=== PATIENT | male | born 1925 | race Caucasian/White ===

== ENCOUNTER → 2016-03-08 | Outpatient (CLI) | payer MEDICARE ==
[~2016-03-08] MED LIST: ASPI32ECTA PO; CALC600T57 PO; CENT1TAB PO; IBUP200C PO; LEVO200T4 PO; METO25TA74 PO; OSTETAB2 PO; PRAV80TA PO; PRESCAP6 PO
[2016-03-08 12:21] LABS: INR 1.01
[2016-03-08 12:22] LABS: MEAN CORPUSCULAR VOLUME 96.7 fl (80.0-96.0); WHITE BLOOD COUNT 8.1 K/mm3 (4.0-10.0)
--- NOTE | 2016-03-08 12:26 | REP ---
Clinical: Preoperative assessment . Comparison: 09/20/2014. Technique: PA and lateral. Findings: The mediastinum and cardiac silhouette demonstrate chronic changes and evidence for hiatal hernia. The lung agrawal demonstrate chronic changes without acute consolidation, effusion, or pneumothorax. The skeletal structures are intact and normal. Impression: 1. No acute cardiopulmonary process. Signed by David Mai MD 03/08/2016 12:17 P
[2016-03-08 12:47] LABS: ALBUMIN 3.7 GM/DL (3.2-5.2); ALBUMIN/GLOBULIN RATIO 1.06 (1.00-1.93); BILIRUBIN,TOTAL 0.5 MG/DL (0.2-1.0); CALCIUM LEVEL 8.7 MG/DL (8.8-10.2); CREATININE FOR GFR 1.36 MG/DL (0.70-1.30); GLOMERULAR FILTRATION RATE 52.6 (>35); POTASSIUM SERUM 4.5 MEQ/L (3.5-5.1); TOTAL PROTEIN 7.2 GM/DL (6.4-8.2)
--- NOTE | 2016-03-08 17:25 | ECGEPIP ---
Stationary ECG Study [facility] Test Date: 2016-03-08 Pat Name: ADRIANA CHANDLER Department: Room: - Gender: M [employer] Compliance Specialist: : [id number] Requested By: Jese Jalloh Order Number: [id number] Reading MD: Adnrew Valdez Measurements Intervals Wright Rate: 47 P: 50 OR: 210 QRS: 21 QRSD: 97 T: 68 QT: 464 QTc: 411 Interpretive Statements SINUS BRADYCARDIA WITH FIRST DEGREE AV BLOCK Inferior Q waves of uncertain significance Electronically Signed On 03-08-2016 17:24:34 EST by Andrew Valdez
== END ==
LOC: M ADMPAT 09:19 → EDSTATUS 09:30
PROVIDERS: ATTEND Orthopaedic Surgery
DX: M17.11 Unilateral primary osteoarthritis, right knee (principal); Z79.01 Long term (current) use of anticoagulants

== ENCOUNTER 2016-03-22 07:30 | Inpatient (IN) | payer MEDICARE ==
[2016-03-08 11:23] VITALS: BP 134/72
--- NOTE | 2016-03-20 16:06 | HPE ---
DATE OF ADMISSION: 03/22/2016 CHIEF COMPLAINT: Right knee pain. HISTORY OF PRESENT ILLNESS: This is a very pleasant 89-year-old male with progressively worsening right knee pain and stiffness. He has failed to improve with conservative treatment. He has elected for surgery for his continued symptoms. He has pain with weightbearing activities and his activities of daily living. X-rays of his knee are notable for advanced osteoarthritis of the right knee joint. He has consented for a right total knee arthroplasty by Dr. Jese Jalloh. Medical optimization was performed by Dr. Morris. ALLERGIES: No known drug allergies. CURRENT MEDICATIONS: - Centrum Silver once a day - Caltrate 600/1500 once a day - baby aspirin once a day - ibuprofen 200 mg once a day - levothyroxine 88 mcg a day - AREDS eye capsules PAST MEDICAL HISTORY: He has a history of hypothyroidism. PAST SURGICAL HISTORY: Includes a quadruple bypass in 1997. SOCIAL HISTORY: This gentleman is semi-retired. He works for the town of [place] 12 hours a week. He quit smoking in 1984. He does not drink alcohol. FAMILY HISTORY: Noncontributory. REVIEW OF SYSTEMS: This patient denies chest pain, heart palpitations, cough, wheezing, difficulty breathing and shortness of breath. He denies abdominal pain, nausea, vomiting, diarrhea or constipation. He denies recent upper respiratory infection or urinary tract infection symptoms. He does complain of persistent pain in the right knee and pain with weightbearing activities in his right knee. PHYSICAL EXAMINATION: GENERAL: He is a well-nourished, well-developed, in no acute distress, adult male. He ambulates with a moderate limp favoring the right lower extremity. He uses a single-leg cane. VITAL SIGNS: Blood pressure 149/88, pulse of 16, respirations of 12. NECK: Supple without adenopathy or jugular venous distension. There were no carotid bruits appreciated upon auscultation. LUNGS: Clear to auscultation without rales or wheeze. HEART: Regular rate and rhythm. ABDOMEN: Bowel sounds were present. EXTREMITIES: Examination of the knee revealed intact skin. He had decreased range of motion secondary to pain and stiffness. The limb is neurovascularly intact. LABORATORY DATA: Chest x-ray showed no acute cardiopulmonary disease processes. EKG showed sinus bradycardia with first-degree AV block at 47 beats per minute. Prothrombin time was 13.4, INR 1.01, glucose 70, BUN 22, creatinine 1.36 for a GFR of 52.6, sodium 141, potassium 4.5. CBC showed a red count of 4.08, hemoglobin of 12.6, hematocrit of 39.5, and an MCV of 96.7. Sedimentation rate was 18. UA showed 1+ protein, 3+ leukocyte esterase, 15 white blood cells with a specific gravity of 1.020. Urine culture showed no growth and nasal and sinus cultures showed normal tammi. IMPRESSION: Symptomatic osteoarthritis of the right knee. PLAN: Consented for a right total knee arthroplasty by Dr. Jese Jalloh.
[~2016-03-22] VITALS: Ht 180.3 cm; Wt 92.5 kg
[2016-03-22] VITALS (7 sets, daily range): BP systolic 127–156; BP diastolic 64–90
[2016-03-22] MEDS ORDERED: LR 1,000 ML IV SCH ×3 (09:15→14:30)
[2016-03-22] MEDS ORDERED: COUM10TA PO (09:36)
[2016-03-22] MEDS ORDERED: ceFAZolin 1GM INJ (J0690) As Ordered ONE (09:59)
[2016-03-22] MEDS ORDERED: TRANEXAMIC ACID 100 MG/ML 10ML VIAL As Ordered ONE (09:59)
[2016-03-22] MEDS ORDERED: EPINEPHrine INJ 1 MG/ML 1ML VIAL/AMP As Ordered ONE (10:00)
[2016-03-22] MEDS ORDERED: BUPIVACAINE HCL 0.5% 10 ML VIAL As Ordered ONE (10:02)
[2016-03-22] MEDS ORDERED: fentaNYL 100 MCG/2 ML INJECTION (J3010) As Ordered ONE ×2 (10:02→10:05)
[2016-03-22] MEDS ORDERED: BUPIVACAINE HCL 0.25% 30 ML VIAL As Ordered ONE (10:02)
[2016-03-22] MEDS ORDERED: MIDAZOLAM INJ 2 MG/2 ML VIAL (J2250) As Ordered ONE (10:05)
[2016-03-22] MEDS ORDERED: fentaNYL 100 MCG/2 ML INJECTION (J3010) IV PRN ×2 (10:45→14:30)
[2016-03-22] MEDS ORDERED: MIDAZOLAM INJ 2 MG/2 ML VIAL (J2250) IV PRN (10:45)
[2016-03-22] MEDS ORDERED: fentaNYL 100 MCG/2 ML INJECTION (J3010) IV ONE (11:15)
[2016-03-22] MEDS ORDERED: MIDAZOLAM INJ 2 MG/2 ML VIAL (J2250) IV ONE (11:15)
[2016-03-22] MEDS ORDERED: EPINEPHrine INJ 1 MG/ML 1ML VIAL/AMP XX ONE (12:29)
[2016-03-22] MEDS ORDERED: BUPIVACAINE HCL 0.25% 30 ML VIAL XX ONE (12:29)
[2016-03-22] MEDS ORDERED: BUPIVACAINE HCL 0.5% 10 ML VIAL XX ONE ×2 (12:29→14:45)
[2016-03-22] MEDS ORDERED: fentaNYL 100 MCG/2 ML INJECTION (J3010) XX ONE (12:29)
[2016-03-22] MEDS ORDERED: ceFAZolin 1GM INJ (J0690) IR ONE (12:29)
[2016-03-22] MEDS ORDERED: TRANEXAMIC ACID 100 MG/ML 10ML VIAL XX ONE (12:29)
[2016-03-22] MEDS ORDERED: ROPIvacaine 0.5% 30 ML INJECTION (J2795) ONE (12:36)
[2016-03-22] MEDS ORDERED: dexameTHASONE 10 MG/1 ML VIAL PRES.FREE (J1100) ONE (12:36)
[2016-03-22] MEDS ORDERED: EPINEPHrine INJ 1 MG/ML 1ML VIAL/AMP ONE (12:36)
[2016-03-22] MEDS ORDERED: ONDANSETRON 4MG/2ML VIAL (J2405) As Ordered ONE (13:28)
[2016-03-22] MEDS ORDERED: PHENYLephrine HCL 500 MCG/5 ML (100MCG/ML) SYRINGE (J2370) As Ordered ONE (13:28)
[2016-03-22] MEDS ORDERED: LIDOCAINE 2% INJ 100 MG/5 ML SDV (FOR ANES.) As Ordered ONE (13:28)
[2016-03-22] MEDS ORDERED: PROPOFOL 200 MG/20 ML VIAL As Ordered ONE (13:28)
[2016-03-22] MEDS ORDERED: ePHEDrine SULFATE 25 MG/5 ML(5MG/ML) SYRINGE As Ordered ONE (13:28)
[2016-03-22] MEDS ORDERED: MORPHINE PCA 1MG/ML 100ML CADD As Ordered ONE (13:53)
[2016-03-22] MEDS ORDERED: PATIENT IS CURRENTLY ON AN ON-Q PAIN BUSTER PAIN RELIEF SYSTEM XX SCH (14:30)
[2016-03-22] MEDS ORDERED: ONDANSETRON 4MG/2ML VIAL (J2405) IV PRN ×2 (14:30→15:00)
[2016-03-22] MEDS ORDERED: FLEET ENEMA PR PRN (14:45)
[2016-03-22] MEDS ORDERED: ACETAMINOPHEN TAB 650MG DOSE (2X325MG) PO PRN (14:45)
[2016-03-22] MEDS ORDERED: NALOXONE INJ 0.4 MG/1 ML VIAL (J2310) IV PRN (15:00)
[2016-03-22] MEDS ORDERED: diphenhydrAMINE INJ 50MG/ML VIAL (J1200) IV PRN (15:00)
[2016-03-22] MEDS ORDERED: EPIDURAL/PCA KEYS XX PRN (15:00)
[2016-03-22] MEDS ORDERED: MORPHINE PCA 1MG/ML 100ML CADD IV PRN (15:00)
[2016-03-22] MEDS ORDERED: NALBUPHINE HCL 10 MG/ML AMP (J2300) IV PRN (15:00)
[2016-03-22] MEDS: MULTIVITAMINS/MINERALS THERAP 1 TAB PO SCH (15:49)
[2016-03-22] MEDS: D5W/0.45% SODIUM CHLORIDE 1,000 ML IV SCH (15:49)
[2016-03-22] MEDS ORDERED: WARFARIN SOD 5 MG TAB PO SCH (17:00)
[2016-03-22] MEDS: PRAVASTATIN 20 MG TAB PO SCH (20:25)
--- NOTE | 2016-03-22 23:16 | RO ---
DATE OF PROCEDURE: 03/22/2016 PREOPERATIVE DIAGNOSIS: Right severe osteoarthritis of the knee. POSTOPERATIVE DIAGNOSIS: Right severe osteoarthritis of the knee. OPERATION PERFORMED: Right total knee replacement. SURGEON: Jese Jalloh MD CALENDER MACHINE OPERATOR HELPER: ALYSSA Vasques HISTORY: An 89-year-old gentleman with at least 20 degrees of severe varus subluxation of the knee, advanced erosion of the tibia. The patient presents for elective total knee replacement. FINDINGS AT SURGERY: A #5 femur, a #4 tibia, 12.5 spacer, 38 mm button. TOURNIQUET TIME: 62 minutes. COMPLICATIONS: No intraoperative complications noted. Mr. Sue assisted by retracting vital structures and manipulating the leg in order to expedite the procedure. DESCRIPTION OF PROCEDURE: After a spinal anesthetic was installed, the Barajas catheter placed, IV antibiotics were administered. The right leg prepped and draped in usual fashion. A tourniquet inflated to 300 mmHg. A straight anterior incision made. A median parapatellar arthrotomy was fashioned. Intermedullary canal opened and a 5 degrees valgus 10 mm cut made off the femur. This was done by Vikram under my supervision. I made the rest of the femoral sizing cuts. Then the tibia was exposed. We had to cut 12 mm off the good side in order to get to a stable border. The osteophytes were removed. Posterior osteophytes removed. The medial collateral ligament was intact. The medial meniscus, lateral meniscus were excised. The anterior and posterior cruciate were excised. The spacer appeared to be a 12.5. Following this, the notch was cut, the femur fit well. The tibia was applied and rotation was checked. A #5 tray tented to overhang a bit too much. The #4 had a better bony support, so that was chosen. Rotation was checked and the preparation was finalized. No lateral release was required for the patella. Once all trial components were removed, Mr. Sue was sent to the back table to mix methacrylate under vacuum while I thoroughly irrigated the bone and dried it in preparation for cementing. Following this the he returned to supply exposure. Then the permanent components were malleted into place. Excess cement was removed and the knee placed in full extension while the patella was cemented. The knee was then thoroughly irrigated. A PainBuster catheter was inserted. The TXA was instilled into the wound for postoperative analgesia and hemostasis. The median parapatellar arthrotomy was closed with heavy PDS suture. The tenosynovium closed with buried #2-0 PDS luanne for skin. Tourniquet deflated at 62 minutes. A dry dressing was applied. The patient transferred to recovery room breathing spontaneously having tolerated the procedure well.
[2016-03-23] MEDS: D5W/0.45% SODIUM CHLORIDE 1,000 ML IV SCH (01:00)
[2016-03-23 02:00] VITALS: BP 124/91
[2016-03-23 06:00] VITALS: BP 122/77
[2016-03-23] MEDS: LEVOTHYROXINE 0.1 MG TAB (100 MCG) PO SCH (06:12)
[2016-03-23] MEDS: CALCIUM CARBONATE 500 MG CHEW U/D PO PRN ×2 (06:12→13:23)
[2016-03-23] MEDS ORDERED: ONDANSETRON 4 MG TAB (S0181) PO PRN (06:30)
[2016-03-23 06:53] LABS: MEAN CORPUSCULAR HEMOGLOBIN 31.7 pg (27.0-33.0); MEAN CORPUSCULAR HGB CONC 32.1 g/dl (32.0-36.5); MEAN CORPUSCULAR VOLUME 98.5 fl (80.0-96.0); RED CELL DISTRIBUTION WIDTH 13.6 % (11.5-14.5); WHITE BLOOD COUNT 12.4 K/mm3 (4.0-10.0)
[2016-03-23 07:07] LABS: INR 1.15
--- NOTE | 2016-03-23 08:33 | IPNPDOC ---
Assessment/Plan Date Seen The patient was seen on 03/23/16. Problems Problems: (1) Fever Status: Acute Problem Text: 03/23 WBC 12.4, temp to 100.6, NBNB vomit x 1 this AM, no obvious source, t/f-defer workup for now (2) Status post total right knee replacement Status: Acute Problem Specific Plan: Monitor Clinically Problem Text: Pain controlled, Mgmt per ortho. PT/OT. Enc IS. Please call [facility] is needed. (3) Hypertension Status: Chronic Problem Specific Plan: Monitor Clinically (4) Hypothyroidism Status: Chronic Problem Specific Plan: Monitor Clinically Plan / VTE VTE Prophylaxis Ordered?: Yes Subjective Review of Systems CC/HPI Pt this morning, reports pain controlled. denies concerns General: Denies: Fatigue Constitutional: Denies: Chills, Fever Pulmonary: Denies: Cough, Dyspnea Cardiovascular: Denies: Chest Pain, Palpitations Gastrointestinal: Denies: Diarrhea, Nausea, Vomiting Psych: Reports: Mood Normal Objective Physical Examination General Exam: Positive: Alert, No Acute Distress ENT Exam: Positive: Mucous membr. moist/pink Chest Exam: Positive: Clear to auscultation, Normal air movement Heart Exam: Positive: Normal S1, Normal S2, Rate Normal Abdomen Exam: Positive: Normal bowel sounds, Soft, Negative: Tenderness Extremity Exam: Negative: Edema Vital Signs/I&O Vital Signs Date Time Temp Pulse Resp B/P Pulse Ox O2 Delivery O2 Flow Rate FiO2 03/23/16 06:00 99.9 72 18 122/77 97 Nasal Cannula 2.0 I&O- Last 24 Hours up to 6 AM 03/23/16 06:00 Intake Total 3437 ml Output Total 1375 ml Balance 2062 ml Laboratory Data Labs 24H Laboratory Tests 2 03/23/16 06:39: Prothromb Time International Ratio 1.15, Prothrombin Time 14.8H CBC/BMP Laboratory Tests 03/23/16 06:39 Red Blood Count 3.61 L, Mean Corpuscular Volume 98.5 H, Mean Corpuscular Hemoglobin 31.7, Mean Corpuscular Hemoglobin Concent 32.1, Red Cell Distribution Width 13.6 SHLOMO OLIVO PA-C Mar 23, 2016 08:33 Romeo Huynh M.D. Mar 23, 2016 16:53
[2016-03-23] MEDS ORDERED: ONDANSETRON 4MG/2ML VIAL (J2405) IV PRN (08:45)
--- NOTE | 2016-03-23 08:48 | CR ---
DATE OF CONSULTATION: 03/22/2016 SUBJECTIVE: The patient tells me that he is feeling well. He denies any pain or complaints at this time. He denies chest pain, shortness of breath, fevers, chills, nausea, vomiting, or diarrhea. OBJECTIVE: VITAL SIGNS: Blood pressure 113/59. Pulse 54. Respiratory rate 12. Oxygen saturation 97% on room air. GENERAL: He is a very pleasant, elderly, man joking around with the nurses. He does not appear to be in any acute distress. HEENT: Cranial nerves II-XII are grossly intact. He has moist mucous membranes. No elevation of central venous pressure. CARDIOVASCULAR: S1, S1, with a pansystolic murmur. RESPIRATORY EXAM: Clear. ABDOMINAL EXAM: Benign. EXTREMITIES: Right knee is bandaged, is wrapped. He has a drain in place which is not draining anything at this time. There is no clubbing, cyanosis or edema. Good pulses distally bilaterally. LABORATORY STUDIES: None recently. IMAGING: No new imaging. ASSESSMENT AND PLAN: This is an 89-year-old man status post right total knee replacement without complications postoperative day 0. PROBLEMS: 1. Right total knee replacement postoperative day 0. Management, physical therapy and pain control. Surgical management as per orthopedic surgery, Dr. Jalloh. 2. Coronary artery disease. The patient will be continued on his beta rosie with holding parameters. His aspirin is continued. He is also continued on his statin. 3. Hypothyroidism. The patient will be continued on his levothyroxine at his home dose. 4. Macular degeneration. The patient is okay to continue his home AREDS at his home dose. 5. Dyslipidemia. As outlined above, the patient is continued on his statin. DISPOSITION: Will continue following. Thank you for this consult. We will continue to follow along with this patient with you while he remains in the hospital. The patient will be signed out to Dr. Huynh of [facility] who will continue following the patient.
[2016-03-23] MEDS: METOPROLOL SUCC *XL* 25MG TAB (TopROL *XL*) PO SCH (09:00)
[2016-03-23] MEDS ORDERED: D5W/0.45% SODIUM CHLORIDE 1,000 ML IV SCH (09:00)
[2016-03-23] MEDS ORDERED: ONDANSETRON 4MG/2ML VIAL (J2405) IV SCH (09:00)
[2016-03-23] MEDS: PRESERVISION PO SCH ×2 (09:28→20:55)
[2016-03-23] MEDS: SENOKOT S TAB PO SCH ×2 (09:29→20:55)
[2016-03-23] MEDS: MULTIVITAMINS/MINERALS THERAP 1 TAB PO SCH (09:29)
[2016-03-23] MEDS: MOM 30ML SUSPENSION UDC PO SCH (09:29)
[2016-03-23] MEDS: PERCOCET 5MG/325MG TAB PO PRN ×3 (09:31→20:56)
[2016-03-23] MEDS: MIRALAX *UNIT DOSE* 17GM PACKET PO SCH (09:32)
[2016-03-23 10:00] VITALS: BP 122/69
--- NOTE | 2016-03-23 11:07 | REP ---
Right knee two views: There is a total hip arthroplasty. The components are tightly applied and in satisfactory positions alignment. Skin luanne are incidentally noted. Signed by Rachid Corona MD 03/23/2016 10:59 A
[2016-03-23 14:00] VITALS: BP 119/64
[2016-03-23] MEDS ORDERED: WARFARIN SOD 5 MG TAB PO ONE (17:00)
--- NOTE | 2016-03-23 19:02 | REP ---
PORTABLE CHEST, ONE VIEW: HISTORY: Fever. COMPARISON: 03/08/2016 An increase in interstitial markings is present in the lungs consistent with chronic interstitial fibrosis. Linear density is present in the left lower lobe consistent with scar. The heart is normal in size. The pulmonary vasculature is normal in appearance. A hiatal hernia is present. IMPRESSION: 1. Chronic interstitial fibrosis. 2. Left lower lobe scar. Signed by Al Shukla MD 03/23/2016 07:05 P
[2016-03-23] MEDS: PRAVASTATIN 20 MG TAB PO SCH (20:55)
[2016-03-23 22:00] VITALS: BP 119/82
[2016-03-24 06:00] VITALS: BP 130/71
[2016-03-24] MEDS: LEVOTHYROXINE 0.1 MG TAB (100 MCG) PO SCH (06:04)
[2016-03-24] MEDS: PERCOCET 5MG/325MG TAB PO PRN ×3 (06:05→20:56)
[2016-03-24 07:05] LABS: ALBUMIN 2.9 GM/DL (3.2-5.2); ALBUMIN/GLOBULIN RATIO 0.88 (1.00-1.93); ALKALINE PHOSPHATASE 103 U/L (45-117); ALT/SGPT 32 U/L (12-78); ANION GAP 7 MEQ/L (8-16); AST/SGOT 33 U/L (15-37); BILIRUBIN,TOTAL 0.9 MG/DL (0.2-1.0); BLOOD UREA NITROGEN 24 MG/DL (7-18); CALCIUM LEVEL 8.4 MG/DL (8.8-10.2); CARBON DIOXIDE LEVEL 28 MEQ/L (21-32); CHLORIDE LEVEL 100 MEQ/L (98-107); CREATININE FOR GFR 1.06 MG/DL (0.70-1.30); GLOMERULAR FILTRATION RATE > 60.0 (>35); GLUCOSE, FASTING 114 MG/DL (83-110); POTASSIUM SERUM 4.5 MEQ/L (3.5-5.1); SODIUM LEVEL 135 MEQ/L (136-145); TOTAL PROTEIN 6.2 GM/DL (6.4-8.2)
[2016-03-24 07:08] LABS: INR 1.79
[2016-03-24 07:13] LABS: BASO # 0.3 K/mm3 (0.0-0.2); BASO % 2.1 % (0.0-1.0); EOS # 0.2 K/mm3 (0.0-0.50); EOS % 1.7 % (0.0-3.0); LARGE UNSTAINED CELL # 0.2 K/mm3 (0.0-0.4); LYMPH % 5.6 % (24.0-44.0); MEAN CORPUSCULAR HEMOGLOBIN 30.4 pg (27.0-33.0); MEAN CORPUSCULAR HGB CONC 31.9 g/dl (32.0-36.5); MEAN CORPUSCULAR VOLUME 95.4 fl (80.0-96.0); MONO # 0.7 K/mm3 (0.0-0.8); NEUTROPHILS # 12.2 K/mm3 (1.8-7.7); NEUTROPHILS % 84.6 % (36.0-66.0); PLATELET COUNT, AUTOMATED 231 k/mm3 (150-450); RED CELL DISTRIBUTION WIDTH 13.6 % (11.5-14.5); WHITE BLOOD COUNT 14.4 K/mm3 (4.0-10.0)
[2016-03-24] MEDS: METOPROLOL SUCC *XL* 25MG TAB (TopROL *XL*) PO SCH (09:00)
[2016-03-24] MEDS: MULTIVITAMINS/MINERALS THERAP 1 TAB PO SCH (09:53)
[2016-03-24] MEDS: MIRALAX *UNIT DOSE* 17GM PACKET PO SCH (09:53)
[2016-03-24] MEDS: MOM 30ML SUSPENSION UDC PO SCH (09:53)
[2016-03-24] MEDS: SENOKOT S TAB PO SCH ×2 (09:53→20:56)
[2016-03-24] MEDS: PRESERVISION PO SCH ×2 (09:54→20:56)
[2016-03-24 11:26] VITALS: BP 114/69
[2016-03-24] MEDS ORDERED: WARFARIN SOD 5 MG TAB PO ONE (17:00)
[2016-03-24] MEDS: PRAVASTATIN 20 MG TAB PO SCH (20:56)
[2016-03-24 22:00] VITALS: BP 109/69
[2016-03-25] MEDS: LEVOTHYROXINE 0.1 MG TAB (100 MCG) PO SCH (05:58)
[2016-03-25] MEDS: PERCOCET 5MG/325MG TAB PO PRN ×2 (05:59→22:13)
[2016-03-25 06:00] VITALS: BP 125/74
[2016-03-25 06:19] LABS: INR 1.82
[2016-03-25] MEDS ORDERED: MAGNESIUM CITRATE 300 ML BTL PO ONE (06:45)
[2016-03-25] MEDS: SENOKOT S TAB PO SCH ×2 (08:48→20:16)
[2016-03-25] MEDS: MULTIVITAMINS/MINERALS THERAP 1 TAB PO SCH (08:48)
[2016-03-25] MEDS: PRESERVISION PO SCH ×2 (08:48→20:16)
[2016-03-25] MEDS: MOM 30ML SUSPENSION UDC PO SCH (08:48)
[2016-03-25] MEDS: MIRALAX *UNIT DOSE* 17GM PACKET PO SCH (08:48)
[2016-03-25] MEDS: METOPROLOL SUCC *XL* 25MG TAB (TopROL *XL*) PO SCH (08:49)
[2016-03-25 14:00] VITALS: BP 119/74
[2016-03-25] MEDS ORDERED: WARFARIN SOD 4 MG TAB PO SCH (17:00)
[2016-03-25] MEDS: PRAVASTATIN 20 MG TAB PO SCH (20:16)
[2016-03-25 22:00] VITALS: BP 167/83
[2016-03-26] MEDS: LEVOTHYROXINE 0.1 MG TAB (100 MCG) PO SCH (05:47)
[2016-03-26] MEDS: PERCOCET 5MG/325MG TAB PO PRN ×3 (05:52→21:26)
[2016-03-26 06:00] VITALS: BP 131/76
[2016-03-26 06:17] LABS: INR 2.08
[2016-03-26] MEDS: MOM 30ML SUSPENSION UDC PO SCH (09:20)
[2016-03-26] MEDS: MIRALAX *UNIT DOSE* 17GM PACKET PO SCH (09:20)
[2016-03-26] MEDS: PRESERVISION PO SCH ×2 (09:20→20:24)
[2016-03-26] MEDS: SENOKOT S TAB PO SCH ×2 (09:21→20:24)
[2016-03-26] MEDS: METOPROLOL SUCC *XL* 25MG TAB (TopROL *XL*) PO SCH (09:21)
[2016-03-26] MEDS: MULTIVITAMINS/MINERALS THERAP 1 TAB PO SCH (09:23)
[2016-03-26 14:00] VITALS: BP 127/77
[2016-03-26] MEDS ORDERED: WARFARIN SOD 1 MG TAB PO ONE (17:00)
[2016-03-26] MEDS: PRAVASTATIN 20 MG TAB PO SCH (20:24)
[2016-03-27] MEDS: LEVOTHYROXINE 0.1 MG TAB (100 MCG) PO SCH (05:39)
[2016-03-27 06:00] VITALS: BP 141/73
[2016-03-27 06:37] LABS: INR 2.35
[2016-03-27] MEDS ORDERED: PERC5TAB6 PO (06:51)
[2016-03-27] MEDS ORDERED: MAPA325T2 PO (07:12)
[2016-03-27] MEDS ORDERED: PERCOCET PO (07:12)
[2016-03-27] MEDS ORDERED: PEG1POW PO (07:12)
[2016-03-27] MEDS ORDERED: CALC500C16 PO (07:12)
[2016-03-27] MEDS ORDERED: FLEEENE4 PR (07:12)
[2016-03-27] MEDS ORDERED: Non-Formulary Medication XX (07:12)
[2016-03-27] MEDS ORDERED: SENN1TAB2 PO (07:12)
[2016-03-27] MEDS ORDERED: MILKSUS PO (07:12)
[2016-03-27] MEDS ORDERED: Patient Own Medication PO (07:12)
[2016-03-27] MEDS: MIRALAX *UNIT DOSE* 17GM PACKET PO SCH (08:45)
[2016-03-27] MEDS: MOM 30ML SUSPENSION UDC PO SCH (08:45)
[2016-03-27 08:46] VITALS: BP 141/73
[2016-03-27] MEDS: SENOKOT S TAB PO SCH (08:46)
[2016-03-27] MEDS: MULTIVITAMINS/MINERALS THERAP 1 TAB PO SCH (08:46)
[2016-03-27] MEDS: METOPROLOL SUCC *XL* 25MG TAB (TopROL *XL*) PO SCH (08:46)
[2016-03-27] MEDS: PRESERVISION PO SCH (08:46)
[2016-03-27] MEDS: PERCOCET 5MG/325MG TAB PO PRN (08:47)
[2016-03-27 10:11] LABS: MEAN CORPUSCULAR HEMOGLOBIN 31.2 pg (27.0-33.0); MEAN CORPUSCULAR HGB CONC 32.5 g/dl (32.0-36.5); MEAN CORPUSCULAR VOLUME 96.1 fl (80.0-96.0); RED CELL DISTRIBUTION WIDTH 13.5 % (11.5-14.5); WHITE BLOOD COUNT 11.5 K/mm3 (4.0-10.0)
[2016-03-28] MEDS ORDERED: OXYC1TAB23 PO (15:58)
[2016-03-28] MEDS ORDERED: MIRA33504 PO (15:58)
[2016-03-28] MEDS ORDERED: ENEM1ENE4 PR (15:58)
[2016-03-28] MEDS ORDERED: BISA10SU4 PR (15:58)
[2016-03-28] MEDS ORDERED: VITMTA PO (15:58)
[2016-03-28] MEDS ORDERED: CALCCHW3 PO (15:58)
[2016-03-28] MEDS ORDERED: WARF4TAB52 PO (15:58)
[2016-03-28] MEDS ORDERED: TYLE500T78 PO (15:58)
[2016-03-28] MEDS ORDERED: MILKSUS PO (15:58)
[2016-03-28] MEDS ORDERED: CALC1TAB21 PO (16:04)
--- NOTE | 2016-03-29 12:39 | DSES ---
DATE OF ADMISSION: 03/22/2016 DATE OF DISCHARGE: 03/27/2016 ADMITTING DIAGNOSIS: Severe osteoarthritis of the right knee. OTHER DIAGNOSES: Hypothyroid. Coronary artery disease. Hyperlipidemia. DISCHARGE DIAGNOSIS: Severe osteoarthritis of the right knee status post right total knee arthroplasty. OPERATION PERFORMED: Right total knee arthroplasty. HOSPITAL COURSE: The patient underwent a right total knee arthroplasty under spinal anesthesia which was uneventful. His hospital course was without complication and he was weight bearing as tolerated with the use of a walker. He will continue his preoperative medications and diet. He will take Coumadin and use thromboembolic deterrent stockings for 30 days for deep venous thrombosis prophylaxis. The patient will followup in our office in approximately 10-14 days for a wound check and staple removal. The patient is encouraged to contact our office sooner if there is any increased pain, drainage, bleeding, redness, numbness and tingling in his extremity, fever greater than 101 degrees, or any other concerns. Please see the medical record for further details.
== END 2016-03-27 11:30 | DRG 470 ==
LOC: M OR 08:53 → M MS5PR 14:55
PROVIDERS: ADMIT Orthopaedic Surgery; ATTEND Orthopaedic Surgery
PROC: 0SRC0J9 Replacement of Right Knee Joint with Synthetic Substitute, Cemented, Open Approach (ICD-10-PCS; principal; 2016-03-22 11:00)
DX: M17.11 Unilateral primary osteoarthritis, right knee (principal); Z79.82 Long term (current) use of aspirin; Z79.899 Other long term (current) drug therapy; E03.9 Hypothyroidism, unspecified; Z87.891 Personal history of nicotine dependence; I25.10 Atherosclerotic heart disease of native coronary artery without angina pectoris; E78.5 Hyperlipidemia, unspecified; H35.30 Unspecified macular degeneration

== ENCOUNTER 2016-03-28 13:04 | Inpatient (IN) | payer MEDICARE ==
[~2016-03-28] VITALS: Ht 180.3 cm; Wt 88.5 kg
[~2016-03-28 13:04] MED LIST changes: -BISA10SU4 PR; -CALC1TAB21 PO; -CALCCHW3 PO; -ENEM1ENE4 PR; -MIRA33504 PO; -OXYC1TAB23 PO; -TYLE500T78 PO; -VITMTA PO; -WARF4TAB52 PO
[2016-03-28 14:11] LABS: ANION GAP 9 MEQ/L (8-16); BLOOD UREA NITROGEN 69 MG/DL (7-18); CALCIUM LEVEL 8.3 MG/DL (8.8-10.2); CARBON DIOXIDE LEVEL 27 MEQ/L (21-32); CHLORIDE LEVEL 104 MEQ/L (98-107); CREATININE FOR GFR 1.16 MG/DL (0.70-1.30); GLOMERULAR FILTRATION RATE > 60.0 (>35); GLUCOSE, FASTING 153 MG/DL (83-110); POTASSIUM SERUM 4.5 MEQ/L (3.5-5.1); SODIUM LEVEL 140 MEQ/L (136-145)
[2016-03-28 14:17] LABS: BASO % 0.4 % (0.0-1.0); EOS % 0.1 % (0.0-3.0); LARGE UNSTAINED CELL # 0.1 K/mm3 (0.0-0.4); LYMPH # 0.6 K/mm3 (1.5-4.5); LYMPH % 5.5 % (24.0-44.0); MONO # 0.4 K/mm3 (0.0-0.8); MONO % 3.3 % (0.0-5.0); NEUTROPHILS % 89.7 % (36.0-66.0); PLATELET COUNT, AUTOMATED 400 k/mm3 (150-450); RED CELL DISTRIBUTION WIDTH 12.5 % (11.5-14.5); WHITE BLOOD COUNT 11.2 K/mm3 (4.0-10.0)
[2016-03-28 14:29] LABS: INR 1.98
[2016-03-28 14:32] LABS: T UPTAKE 38 % (33-40); THYROXINE (T4) 8.6 UG/DL (4.5-12.0)
--- NOTE | 2016-03-28 14:40 | REP ---
CT brain without contrast: 03/28/2016. Clinical history: Syncope. Technique: Noncontrast images through the brain were provided. Soft tissue and bone windows for each slice level reviewed. No prior study. Findings: Ventricles midline, symmetric and their size proportionate to the diffuse cerebral atrophy. Atrophy greatest in the temporal and frontal lobes but present throughout. The friend white junction differentiation is maintained. There is periventricular and deep central white matter hypodensity suggesting chronic small vessel ischemic changes of aging. No vascular territory infarct, hemorrhage, mass or mass effect in the brain. Brainstem grossly intact cerebellum shows atrophy bilaterally without mass. Basal cisterns intact. Mastoids and visualized sinuses were clear. The calvarium and skull base are without fracture or focal lesion. There were calcifications in the carotid siphons. Impression: 1. Moderately severe diffuse atrophy with ventriculomegaly in proportion. No intracranial hemorrhage, mass, acute infarct or edema. Calcified carotid siphons. 2. No fracture of the skull base or calvarium with the visible sinuses and mastoids clear. Nothing acute. Signed by Roberto Salamanca MD 03/28/2016 05:59 P
--- NOTE | 2016-03-28 15:18 | REP ---
AP PORTABLE CHEST: 03/28/2016 COMPARISON: 03/24/2016, 03/08/2016. CLINICAL HISTORY: Syncope. Two-view show the lungs well inflated. There is interstitial fibrotic change and hyperinflation with linear fibrotic changes in the left lateral base as before. There is no definite infiltrate or effusion. Heart size normal for portable technique. There is no rimma edema, dense consolidation or definite effusion. Sternotomy wires and mediastinal clips are again seen unchanged. The aorta is mildly tortuous without aneurysm. Airway intact. Slight dextroconvex curvature upper thoracic spine degenerative changes of the spine and shoulders. IMPRESSION: 1. Some hyperinflation with COPD. Linear fibrotic changes in left base and prior CABG. All findings stable. Nothing acute. Signed by Roberto Salamanca MD 03/28/2016 06:00 P
[2016-03-28] MEDS ORDERED: MILKSUS PO (15:58)
[2016-03-28] MEDS ORDERED: MIRA33504 PO (15:58)
[2016-03-28] MEDS ORDERED: WARF4TAB52 PO (15:58)
[2016-03-28] MEDS ORDERED: VITMTA PO (15:58)
[2016-03-28] MEDS ORDERED: BISA10SU4 PR (15:58)
[2016-03-28] MEDS ORDERED: TYLE500T78 PO (15:58)
[2016-03-28] MEDS ORDERED: CALCCHW3 PO (15:58)
[2016-03-28] MEDS ORDERED: ENEM1ENE4 PR (15:58)
[2016-03-28] MEDS ORDERED: OXYC1TAB23 PO (15:58)
[2016-03-28] MEDS ORDERED: CALC1TAB21 PO (16:04)
[2016-03-28 16:24] LABS: RETIC HEMOGLOBIN CONTENT CHr 28.1 PG (24-36); RETICULOCYTE ABSOLUTE ADVIA212 94 x10(9)/L (17-77)
[2016-03-28 16:39] LABS: FERRITIN 143 NG/ML (26-388); PERCENT SATURATION 23.3 % (19.7-37.4); TOTAL IRON BINDING CAPACITY 227 UG/DL (250-450)
[2016-03-28] MEDS ORDERED: WARFARIN SOD 1 MG TAB PO SCH (17:00)
[2016-03-28] MEDS ORDERED: BISACODYL 10 MG SUPP PR PRN (20:00)
[2016-03-28] MEDS ORDERED: MOM 30ML SUSPENSION UDC PO PRN (20:00)
--- NOTE | 2016-03-28 20:01 | HPEPDOC ---
General Date of Admission Mar 28, 2016 at 16:07 Chief Complaint The patient is a 89-year-old male Presented from [facility] because of a syncope episode this morning. History of Present Illness Patient is an 89 year old male with a PMHx of CABG (1997), DLP, Hypothyroidism and osteoarthritis who presented from [facility] because of a syncopal episode this morning. Patient had a Right knee arthroplasty done at [facility] by Dr. Jalloh and was discharge to [facility] for therapy. He has been taking Percocet for pain and his stepson has noted that he has not been eating well or drinking much fluids. This morning patient woke up to use the bathroom and had a large bowel movement. Upon standing up he became lightheaded and may have lost consciousness for <1 min. He denies any head trauma, shortness of breath, nausea or vomiting. He did report associated sweating. Home Medications Scheduled (Preservision Areds 2) 1 Cap Cap 1 CAP PO BID (Reported) (Osteo Bi-Flex Advanced Tr) 1 Tab Tab 1 TAB PO DAILY (Reported) (Calcium 600 + D 600-200 mg-Unit) 1 Tab Tab 1 TAB PO QHS (Reported) Acetaminophen (Tylenol Extra Strength) 500 Mg Tab 1,000 MG PO TID (Reported) STARTED 03/28/16, DISCONTINUED PERCOCET Calcium Carbonate (Calci-Chew) 1,250 Mg Chw 1,250 MG PO TID (Reported) Levothyroxine Sodium (Synthroid) 200 Mcg Tab 200 MCG PO DAILY (Reported) Multivitamins *[facility] STOCKED* (Thera M Plus *[facility] STOCKED*) 1 Tab Tab 1 TAB PO DAILY (Reported) Polyethylene Glycol (Miralax) 1 Pow Pow 17 GM PO DAILY (Reported) Pravastatin Sodium (Pravachol) 80 Mg Tab 80 MG PO QHS (Reported) Warfarin Sod (Warfarin Sodium) 1 Mg Tab 1 MG PO QPM (Reported) Scheduled PRN (Enema) 1 Tc Tc 1 TC GA DAILY PRN PRN CONSTIPATION (Reported) Bisacodyl (Bisacodyl) 10 Mg Sup 10 MG GA DAILY PRN PRN CONSTIPATION (Reported) Milk Of Magnesia (Milk of Magnesia) 1,200 Mg/15 Ml Kary 30 ML PO DAILY PRN PRN CONSTIPATION (Reported) Oxycodone/Acetaminophen (Oxycodone/Acetaminophen 5-325 mg) 1 Tab Tab 1 TAB PO Q6H PRN PRN PAIN (Reported) DC OF 03/28/16 - SEE COMMENTS Allergies Coded Allergies: No Known Drug Allergy (Unverified Allergy, Unknown, 06/04/12) Past Medical History Medical History CABG (1997), DLP, Hypothyroidism and osteoarthritis Surgical History CABG Right knee arthroplasty Family History Family History Non contributory Social History Social History - Denies the use of illicit drugs, Drinks socially, Quit smoking in 1984 used to use a pipe - Denies recent travel or sick contacts - Lives alone - 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; 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 Review of Symptoms Other systems Constitutional: Denies weight loss, change in appetite, or recent trauma Eyes: No visual changes or eye pain Ears, Nose, Throat: Denies nose bleeds, or difficulty swallowing Cardiovascular: Denies chest pain, or orthopnea, Positive sweating Respiratory: Denies cough, wheezing, or shortness of breath GI: Gerardo nausea, vomiting, abdominal pain, diarrhea or constipation : Denies pain with urination or frequency Musculoskeletal: Denies joint pain or swelling Neuro / Psych: Denies muscle weakness or sensory loss Skin: No skin rashes noted All other review of systems negative; otherwise stated in history of present illness Vital Signs - Vitals: BP 111/75, HR 79, RR 18, Sat 97%RA, Temp 98.8F - General: Lying in bed, No acute distress, Speaking in full sentences, AAOx3 - HEENT: NC, AT, PERRLA, EOMI - CVS: RRR, +S1S2, +Systolic murmur - Lungs: Fair air entry bilaterally, Clear to auscultation, No wheezing / rales / rhonchi - Abdomen: Soft, Non-distended, Non-tender, + Bowel sounds x 4 - Extremities: + PPx4, No lower extremity edema, No calf tenderness - Neuro: No focal motor or sensory deficit - Skin: No visible rashes Laboratory Data Labs 24H Laboratory Tests 2 03/28/16 13:27: Absolute Reticulocyte Count 94H, Anion Gap 9, White Blood Count 11.2H, Red Blood Count 3.02L, Hemoglobin 9.4L, Hematocrit 29.3L, Mean Corpuscular Volume 97.0H, Mean Corpuscular Hemoglobin 31.0, Mean Corpuscular Hemoglobin Concent 32.0, Red Cell Distribution Width 12.5, Platelet Count 400, Neutrophils (%) ( Auto) 89.7H, Lymphocytes (%) (Auto) 5.5L, Monocytes (%) (Auto) 3.3, Eosinophils (%) (Auto) 0.1, Basophils (%) (Auto) 0.4, Neutrophils # (Auto) 10.0H, Lymphocytes # (Auto) 0.6L, Monocytes # (Auto) 0.4, Eosinophils # (Auto) 0.0, Basophils # (Auto) 0.0, Blood Urea Nitrogen 69H, Creatinine 1.16, Sodium Level 140, Potassium Level 4.5, Chloride Level 104, Carbon Dioxide Level 27, Calcium Level 8.3L, Total Creatine Kinase 63, Creatine Kinase MB 2.1, Creatine Kinase MB Relative Index 3.33, Ferritin 143, Free Thyroxine Index 3.3, Glomerular Filtration Rate > 60.0, Iron Level 53L, Large Unclassified Cells # 0.1, Large Unclassified Cells % 1.0, Percent Reticulocyte Count 3.00H, Prothromb Time International Ratio 1.98, Prothrombin Time 22.6H, Reticulocyte Hgb Content (CHr ) 28.1, Thyroid Stimulating Hormone (TSH) 1.070, Thyroxine (T4) 8.6, Total Iron Binding Capacity 227L, Transferrin % Saturation 23.3, Triiodothyronine (T3) Uptake 38, Troponin I 0.19H 03/28/16 19:09: CBC/BMP Laboratory Tests 03/28/16 13:27 Calcium Level 8.3 L, Total Creatine Kinase 63, Red Blood Count 3.02 L, Mean Corpuscular Volume 97.0 H, Mean Corpuscular Hemoglobin 31.0, Mean Corpuscular Hemoglobin Concent 32.0, Red Cell Distribution Width 12.5, Neutrophils (%) (Auto ) 89.7 H, Lymphocytes (%) (Auto) 5.5 L, Monocytes (%) (Auto) 3.3, Eosinophils (% ) (Auto) 0.1, Basophils (%) (Auto) 0.4, Neutrophils # (Auto) 10.0 H, Lymphocytes # (Auto) 0.6 L, Monocytes # (Auto) 0.4, Eosinophils # (Auto) 0.0, Basophils # (Auto) 0.0 Microbiology Microbiology 1/31/17 Blood Culture, Received Pending Plan / VTE VTE Prophylaxis Ordered?: Yes Plan Plan Syncope likely 2/2 orthostatic hypotension, possibly vasovagal, less likely 2/ 2 cardiogenic etiology - Presented with syncope after a large bowel movement - Found to have positive orthostatic vital signs in ER - History of poor oral intake (solid and liquids) and has been on pain control medications (Percocet) - Will keep on telemetry and trend cardiac enzymes - Will discontinue pain medications at this time - Will supplement diet - will c/w IV fluid hydration CABG (1997) DLP - c/w pravastatin Hypothyroidism - c/w levothyroxine Osteoarthritis Gastrointestinal prophylaxis - Will start protonix DVT prophylaxis - Will c/w Coumadin - INR of 1.98 - Will require INR checks daily CHADD CORRALES MD Mar 28, 2016 20:01
[2016-03-28 21:25] VITALS: BP 120/73
--- NOTE | 2016-03-28 21:27 | EDDOCDS ---
Physician Documentation [facility] Name: Larry Luna Age: 89 yrs Sex: Male : 1925 Arrival Date: 03/28/2016 Time: 13:04 Bed 15 Private MD: Cheng Morris MD Disposition: 03/28/16 15:33 Hospitalization ordered by Saleem Buitrago for Inpatient Admission. Preliminary diagnosis are Syncope and collapse, Abnormal results of cardiovascular function studies - elevate troponin. - Bed requested for PCU. - Status is Inpatient Admission. tm5 - Condition is Stable. - Problem is new. - Symptoms are unchanged. Historical: - Allergies: no known allergies; - Home Meds: 1. acetaminophen 500 mg Oral tab 2 tabs three times a day 2. levothyroxine 200 mcg Oral tab once daily 3. Calcium + Vitamin D 600 mg calcium- 200 unit Oral tab daily 4. multivitamin Oral cap daily 5. glucosamine-chondroitin 250-200 mg oral tab daily 6. Pravachol 80 mg Oral tab once daily 7. PreserVision AREDS oral oral twice a day 8. 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 - Family history: Not pertinent. - : The pt / caregiver states he / she is on anticoagulants: coumadin. Home medication list is obtained from the facility APR. - Exposure Risk Screening:: None identified. Vital Signs: 03/28 13:12 BP 115 / 72; Pulse 79; Resp 18; Temp 98.8(O); Pulse Ox 97% on R/A; Weight 89.81 kg / ct3 198 lbs (R); Height 5 ft. 11 in. (180.34 cm) (R); Pain 0/10; 14:12 BP 84 / 64 RA Supine (auto/reg); Pulse 72 RA; lr2 14:12 BP 111 / 75 RA Sitting (auto/reg); Pulse 80; lr2 14:12 BP 80 / 56 RA Standing (auto/reg); Pulse 90; lr2 14:41 BP 106 / 68 (auto/); mk4 14:41 Pulse 80 MON; Pulse Ox 95% ; mk4 15:11 BP 101 / 69 (auto/); mk4 15:11 Pulse 80 MON; Pulse Ox 96% ; mk4 15:41 BP 108 / 79 (auto/); mk4 15:41 Pulse 82 MON; Pulse Ox 96% ; mk4 16:11 BP 104 / 64 (auto/); mk4 16:11 Pulse 84 MON; Pulse Ox 96% ; mk4 16:41 BP 106 / 71 (auto/); mk4 16:41 Pulse 82 MON; Pulse Ox 93% ; mk4 17:11 BP 113 / 69 (auto/); mk4 17:11 Pulse 80 MON; Pulse Ox 95% ; mk4 17:41 BP 120 / 79 (auto/); mk4 17:41 Pulse 78 MON; mk4 18:11 BP 111 / 70 (auto/); mk4 18:11 Pulse 78 MON; mk4 18:41 BP 123 / 82 (auto/); mk4 18:41 Pulse 98 MON; mk4 19:11 BP 110 / 84 (auto/); mk4 19:11 Pulse 88 MON; mk4 19:41 BP 101 / 66 (auto/); tm5 19:41 Pulse 86 MON; Pulse Ox 95% ; tm5 20:11 BP 120 / 75 (auto/); tm5 20:11 Pulse 82 MON; Pulse Ox 93% ; tm5 20:41 BP 96 / 65 (auto/); tm5 20:41 Pulse 84 MON; Pulse Ox 96% ; tm5 13:12 Body Mass Index 27.62 (89.81 kg, 180.34 cm) ct3 MDM: 13:13 ECG WITH READING ER PHYS+CARDIAG ordered. EDMS 13:32 Cupola Patcher Helper/Pulse Ox/q 30 min VS ordered. br1 13:32 IV Saline Lock ordered. br1 13:32 Rhythm Strip to chart ordered. br1 13:32 Undress patient appropriately for examination ordered. br1 13:32 Basic Metabolic Profile Ordered. EDMS 13:32 CBC with Diff Ordered. EDMS 13:32 Cardiac Injury Profile Ordered. EDMS 13:32 Troponin Ordered. EDMS 13:37 Orthostatic VS ordered. br1 14:10 PT/INR Ordered. EDMS 14:13 Chest, 1 View Ordered. EDMS 14:13 CT Head Without Contrast Ordered. EDMS 14:38 NS 0.9% 500 ml IV at bolus once ordered. ke 14:38 NS 0.9% 1000 ml IV at 250 mL/hr continuous; after bolus ordered. ke 14:38 Basic Metabolic Profile Reviewed. ke 14:38 CBC with Diff Reviewed. ke 14:38 Troponin Reviewed. ke 14:38 PT/INR Reviewed. ke 14:38 Cardiac Injury Profile Reviewed. ke 14:38 THYROID PROFILE Reviewed. ke 14:48 BED REQUEST+ADM ordered. EDMS 15:05 CBC with Diff Reviewed. ke 15:32 Financial registration complete. gjb 15:35 PCR was scanned into [employer] and attached to record. gb 15:43 [facility] Payment Agreement was scanned into [employer] and attached to record. gjb 16:12 Admission / Observation Status ordered. EDMS 16:12 2 GRAM SODIUM DIET ordered. EDMS 16:13 CARDIAC INJURY PROFILE Ordered. EDMS 16:13 TROPONIN Ordered. EDMS 16:13 URINALYSIS Ordered. EDMS 16:13 URINE CULTURE Ordered. EDMS 16:13 BLOOD CULTURES Ordered. EDMS 16:14 OCCULT BLOOD STOOL SPECIMEN Ordered. EDMS 16:15 TYPE & SCREEN Ordered. EDMS 16:19 RETICULOCYTE COUNT Ordered. EDMS 16:19 FERRITIN Ordered. EDMS 16:19 TOTAL IRON BINDING CAPACIT Ordered. EDMS 19:25 NS 0.9% 1000 ml IV at 80 mL/hr continuous ordered. mk4 19:32 CARDIAC INJURY PROFILE Ordered. EDMS 19:32 CARDIAC INJURY PROFILE Ordered. EDMS 19:32 TROPONIN Ordered. EDMS 19:32 TROPONIN Ordered. EDMS 19:32 CBC WITH DIFFERENTIAL Ordered. EDMS 19:32 COMPLETE COMPHRENSIVE METABOLI Ordered. EDMS 19:32 MAGNESIUM LEVEL Ordered. EDMS 20:02 PROTHROMBIN TIME PROFILE\E\INR Ordered. EDMS Administered Medications: 14:57 Drug: NS 0.9% 500 ml [sodium chloride 0.9 % intravenous solution] Route: IV; Rate: mk4 bolus; Site: left antecubital; 17:07 Drug: NS 0.9% 1000 ml [sodium chloride 0.9 % intravenous solution] Route: IV; Rate: 250 mk4 mL/hr; Site: left antecubital; 19:25 Drug: NS 0.9% 1000 ml [sodium chloride 0.9 % intravenous solution] Route: IV; Rate: 80 mk4 mL/hr; Site: left antecubital; 21:11 Follow up: IV Status: Infusion continued upon admit tm5 Signatures: Dispatcher [employer] EDMS FranciscoKeely hernandez, Reg Reg gb Aurelio Kenyon, UX LEAD UX LEAD Dino Fofana MD MD br1 Tayla Maya RN RN mk4 Kim Lozano gjb Marie Gomez RN RN lmg Bozena Cao,AGUSTINA RN tm5 The chart was reviewed and I authenticate all verbal orders and agree with the evaluation and treatment provided.Corrections: (The following items were deleted from the chart) 14:16 14:10 THYROID PROFILE+LAB ordered. EDMS EDMS 16:17 16:13 IRON (FE) ordered. EDMS EDMS 16:17 16:13 TOTAL IRON BINDING CAPACIT ordered. EDMS EDMS 16:17 16:13 FERRITIN ordered. EDMS EDMS 16:18 16:13 RETICULOCYTE COUNT ordered. EDMS EDMS Attachments: 15:43 [facility] Payment Agreement gjb MTDD
--- NOTE | 2016-03-28 21:27 | EDDOCDS ---
Nurse's Notes [facility] Name: Larry Luna Age: 89 yrs Sex: Male : 1925 Arrival Date: 03/28/2016 Time: 13:04 Bed 15 Private MD: Cheng Morris MD Diagnosis: Syncope and collapse;Abnormal results of cardiovascular function studies-elevate troponin Presentation: 03/28 13:09 Presenting complaint: Patient states: pt [facility] last mk4 week , passed out this am after having a bm and 3 other times. Suicide/Homicide risk assessment- the patient denies having any suicidal and/or homicidal ideations and does not present with any other emotional, behavioral or mental health complaints. Status: Patient is not a academic services coordinator or dependent. Transition of care: patient was not received from another setting of care. 13:09 Acuity: EILEEN Level 2 4 13:09 Method Of Arrival: Ambulance [facility] 13:31 Adult Sepsis Screening: The patient does not have new or worsening altered mentation. mk4 Patient's respiratory rate is less than 22. Systolic blood pressure is greater than 100. Patient has a qSOFA score of 1- Negative Sepsis Screen. Triage Assessment: 13:31 General: Appears in no apparent distress, comfortable, Behavior is cooperative. Pain: mk4 Denies pain. Respiratory: Airway is patent Respiratory effort is even, unlabored, Respiratory pattern is regular. Historical: - Allergies: no known allergies; - Home Meds: 1. acetaminophen 500 mg Oral tab 2 tabs three times a day 2. levothyroxine 200 mcg Oral tab once daily 3. Calcium + Vitamin D 600 mg calcium- 200 unit Oral tab daily 4. multivitamin Oral cap daily 5. glucosamine-chondroitin 250-200 mg oral tab daily 6. Pravachol 80 mg Oral tab once daily 7. PreserVision AREDS oral oral twice a day 8. 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 - Family history: Not pertinent. - : The pt / caregiver states he / she is on anticoagulants: coumadin. Home medication list is obtained from the facility APR. - Exposure Risk Screening:: None identified. Screenin:33 Screening information is obtained from the patient. Fall risk: At risk due to age, gait mk4 disturbance, immobility, prior history of falls, The following interventions are performed due to a positive Fall Risk Screen: Fall Risk is added to Special Handling on the patient Summary Screen. A Fall Risk Bracelet was applied to the patient. Side Rails are placed in the up position. A Call Styles is given with instruction to call for help when getting out of bed. Fall Alert bracelet is placed on the patient. Assistance ADL's: Requires assistance with meal preparation, this assistance is provided by residence staff, bathing, assistance is provided by residence staff, dressing, assistance is provided by residence staff, toileting, assistance is provided by ambulation, assistance is provided by residence staff, housework, assistance is provided by residence staff, medication administration, assistance is provided by residence staff. Abuse/DV Screen: The patient / caregiver reports he/she is: not in a situation that causes fear, pain or injury. Nutritional screening: No deficits noted. Advance Directives: There is an active DNR order and the pt has a copy here at this time. home support is adequate. Assessment: 13:15 General: Appears in no apparent distress, Behavior is cooperative, pleasant. mk4 Neurological: Denies blurred vision dizziness, headache. Respiratory: Airway is patent Respiratory effort is even, unlabored, Respiratory pattern is regular. Derm: Skin is intact, is healthy with good turgor, Skin is pink, warm & dry. 14:20 General: Appears in no apparent distress, Behavior is cooperative. Cardiovascular: mk4 Chest pain is denied. Respiratory: Airway is patent Respiratory effort is even, unlabored, Respiratory pattern is regular, Breath sounds are clear bilaterally. 15:59 General: Appears in no apparent distress, hospitalist in examining patient. General: mk4 family at bedside. Neurological: Level of Consciousness is awake, alert, Oriented to person, place, time. 17:09 General: Appears in no apparent distress, comfortable, Behavior is cooperative. mk4 Neurological: Level of Consciousness is awake, alert, Oriented to person, place, time. Neurological: Level of Consciousness is awake, alert, Oriented to person, place, time. Respiratory: Airway is patent Respiratory effort is even, unlabored, Respiratory pattern is regular. 18:00 General: Appears in no apparent distress, comfortable, Behavior is cooperative, pt mk4 denies any c/o dry dressing intact to right knee . Musculoskeletal: Circulation, motion, and sensation intact Capillary refill < 3 seconds in right toes. 19:14 General: Appears in no apparent distress, Behavior is cooperative. Neurological: Level mk4 of Consciousness is awake, alert, Oriented to person, place, time. Respiratory: Airway is patent Respiratory effort is even, unlabored, Respiratory pattern is regular. 19:23 General: Appears in no apparent distress, comfortable. mk4 20:29 General: attempted to call report to PCU, care RN not available at this time, awaiting tm5 return call back . 21:09 General: PCU called & are ready for pt's admission to the floor . tm5 Vital Signs: 13:12 BP 115 / 72; Pulse 79; Resp 18; Temp 98.8(O); Pulse Ox 97% on R/A; Weight 89.81 kg (R); ct3 Height 5 ft. 11 in. (180.34 cm) (R); Pain 0/10; 14:12 BP 84 / 64 RA Supine (auto/reg); Pulse 72 RA; lr2 14:12 BP 111 / 75 RA Sitting (auto/reg); Pulse 80; lr2 14:12 BP 80 / 56 RA Standing (auto/reg); Pulse 90; lr2 14:41 BP 106 / 68 (auto/); mk4 14:41 Pulse 80 MON; Pulse Ox 95% ; mk4 15:11 BP 101 / 69 (auto/); mk4 15:11 Pulse 80 MON; Pulse Ox 96% ; mk4 15:41 BP 108 / 79 (auto/); mk4 15:41 Pulse 82 MON; Pulse Ox 96% ; mk4 16:11 BP 104 / 64 (auto/); mk4 16:11 Pulse 84 MON; Pulse Ox 96% ; mk4 16:41 BP 106 / 71 (auto/); mk4 16:41 Pulse 82 MON; Pulse Ox 93% ; mk4 17:11 BP 113 / 69 (auto/); mk4 17:11 Pulse 80 MON; Pulse Ox 95% ; mk4 17:41 BP 120 / 79 (auto/); mk4 17:41 Pulse 78 MON; mk4 18:11 BP 111 / 70 (auto/); mk4 18:11 Pulse 78 MON; mk4 18:41 BP 123 / 82 (auto/); mk4 18:41 Pulse 98 MON; mk4 19:11 BP 110 / 84 (auto/); mk4 19:11 Pulse 88 MON; mk4 19:41 BP 101 / 66 (auto/); tm5 19:41 Pulse 86 MON; Pulse Ox 95% ; tm5 20:11 BP 120 / 75 (auto/); tm5 20:11 Pulse 82 MON; Pulse Ox 93% ; tm5 20:41 BP 96 / 65 (auto/); tm5 20:41 Pulse 84 MON; Pulse Ox 96% ; tm5 13:12 Body Mass Index 27.62 (89.81 kg, 180.34 cm) ct3 Vitals: 13:12 Log In Time N/A - ambulance arrival. ct3 ED Course: 13:06 Patient visited by Yolanda Clemente, Medical Coordinator Pesticide Use. lbd 13:06 Patient moved to Waiting lbd 13:07 Cheng Morris is Private Physician. lbd 13:08 Patient moved to 15 lbd 13:10 Triage Initiated mk4 13:12 Patient has correct armband on for positive identification. Placed in gown. Bed in low ct3 position. Call light in reach. Side rails up X2. security monitor on. Pulse ox on. NIBP on. 13:13 Patient visited by Jennifer Del Castillo PCA. ct3 13:15 No procedures done that require assistance. mk4 13:17 EKG done. (by ED staff). Reviewed by Dino Lama MD. ct3 13:20 Patient visited by Jennifer Del Castillo PCA. ct3 13:33 The patient / caregiver is instructed regarding the plan of care and ED course. mk4 13:33 Inserted saline lock: 20 gauge in left antecubital area and blood collected. mk4 13:37 Basic Metabolic Profile Sent. mk4 13:38 CBC with Diff Sent. mk4 13:38 Cardiac Injury Profile Sent. mk4 13:38 Troponin Sent. mk4 13:52 Patient visited by Tayla Maya RN. mk4 14:07 [facility]ure[facility] Kenyon FNP is [facility]. ke 14:07 Patient visited by Aurelio Kenyon FNP. ke 14:07 Patient visited by Aurelio Kenyon FNP. ke 14:15 Patient visited by Leandra Mcghee. lr2 14:35 Patient visited by Aurelio Kenyon FNP. ke 15:05 Patient visited by Aurelio Kenyon FNP. ke 15:17 CT Head Without Contrast Returned. EDMS 15:31 Saleem Buitrago MD is Hospitalizing Provider. ke 15:35 PCR was scanned into [employer] and attached to record. gb 15:43 [facility] Payment Agreement was scanned into [employer] and attached to record. gjb 16:14 Chest, 1 View Returned. EDMS 19:11 Patient visited by Bozena Cao RN. tm5 19:11 Patient visited by Bozena Cao RN. tm5 19:11 Awaiting awaiting transfer to assigned bed . tm5 19:11 Report received from Tayla BERRIOS, assumed care of pt at this time. tm5 20:29 Patient visited by Bozena Cao RN. tm5 21:09 Patient visited by Bozena Cao RN. tm5 Administered Medications: 14:57 Drug: NS 0.9% 500 ml [sodium chloride 0.9 % intravenous solution] Route: IV; Rate: mk4 bolus; Site: left antecubital; 17:07 Drug: NS 0.9% 1000 ml [sodium chloride 0.9 % intravenous solution] Route: IV; Rate: 250 mk4 mL/hr; Site: left antecubital; 19:25 Drug: NS 0.9% 1000 ml [sodium chloride 0.9 % intravenous solution] Route: IV; Rate: 80 mk4 mL/hr; Site: left antecubital; 21:11 Follow up: IV Status: Infusion continued upon admit tm5 Intake: 17:26 IV: 500.00ml (NS); Total: 500.00ml. mk4 Order Results: Lab Order: Basic Metabolic Profile; SPEC'M 03/28/16 13:27 Test: GLUCOSE, FASTING; Value: 153; Range: 83-110; Abnormal: Above high normal; Units: MG/DL; Status: F Test: BLOOD UREA NITROGEN; Value: 69; Range: 7-18; Abnormal: Above high normal; Units: MG/DL; Status: F Test: CREATININE FOR GFR; Value: 1.16; Range: 0.70-1.30; Units: MG/DL; Status: F Test: GLOMERULAR FILTRATION RATE; Value: > 60.0; Range: >35; Status: F Test: SODIUM LEVEL; Value: 140; Range: 136-145; Units: MEQ/L; Status: F Test: POTASSIUM SERUM; Value: 4.5; Range: 3.5-5.1; Units: MEQ/L; Status: F Test: CHLORIDE LEVEL; Value: 104; Range: 98-107; Units: MEQ/L; Status: F Test: CARBON DIOXIDE LEVEL; Value: 27; Range: 21-32; Units: MEQ/L; Status: F Test: ANION GAP; Value: 9; Range: 8-16; Units: MEQ/L; Status: F Test: CALCIUM LEVEL; Value: 8.3; Range: 8.8-10.2; Abnormal: Below low normal; Units: MG/DL; Status: F Test Note: ; Units are mL/min/1.73 m2 Chronic Kidney Disease Staging per NKF: Stage I & II GFR >=60 Normal to Mildly Decreased Stage III GFR 30-59 Moderately Decreased Stage IV GFR 15-29 Severely Decreased Stage V GFR <15 Very Little GFR Left ESRD GFR <15 on COMPLIANCE REPRESENTATIVE Lab Order: CBC with Diff; SPEC'M 03/28/16 13:27 Test: WHITE BLOOD COUNT; Value: 11.2; Range: 4.0-10.0; Abnormal: Above high normal; Units: K/mm3; Status: F Test: RED BLOOD COUNT; Value: 3.02; Range: 4.30-6.10; Abnormal: Below low normal; Units: M/mm3; Status: F Test: HEMOGLOBIN; Value: 9.4; Range: 14.0-18.0; Abnormal: Below low normal; Units: g/dl; Status: F Test: HEMATOCRIT; Value: 29.3; Range: 42.0-52.0; Abnormal: Below low normal; Units: %; Status: F Test: MEAN CORPUSCULAR VOLUME; Value: 97.0; Range: 80.0-96.0; Abnormal: Above high normal; Units: fl; Status: F Test: MEAN CORPUSCULAR HEMOGLOBIN; Value: 31.0; Range: 27.0-33.0; Units: pg; Status: F Test: MEAN CORPUSCULAR HGB CONC; Value: 32.0; Range: 32.0-36.5; Units: g/dl; Status: F Test: RED CELL DISTRIBUTION WIDTH; Value: 12.5; Range: 11.5-14.5; Units: %; Status: F Test: PLATELET COUNT, AUTOMATED; Value: 400; Range: 150-450; Units: k/mm3; Status: F Test: NEUTROPHILS %; Value: 89.7; Range: 36.0-66.0; Abnormal: Above high normal; Units: %; Status: F Test: LYMPH %; Value: 5.5; Range: 24.0-44.0; Abnormal: Below low normal; Units: %; Status: F Test: MONO %; Value: 3.3; Range: 0.0-5.0; Units: %; Status: F Test: EOS %; Value: 0.1; Range: 0.0-3.0; Units: %; Status: F Test: BASO %; Value: 0.4; Range: 0.0-1.0; Units: %; Status: F Test: LARGE UNSTAINED CELL %; Value: 1.0; Range: 0.0-4.0; Units: %; Status: F Test: NEUTROPHILS #; Value: 10.0; Range: 1.8-7.7; Abnormal: Above high normal; Units: K/mm3; Status: F Test: LYMPH #; Value: 0.6; Range: 1.5-4.5; Abnormal: Below low normal; Units: K/mm3; Status: F Test: MONO #; Value: 0.4; Range: 0.0-0.8; Units: K/mm3; Status: F Test: EOS #; Value: 0.0; Range: 0.0-0.50; Units: K/mm3; Status: F Test: BASO #; Value: 0.0; Range: 0.0-0.2; Units: K/mm3; Status: F Test: LARGE UNSTAINED CELL #; Value: 0.1; Range: 0.0-0.4; Units: K/mm3; Status: F Lab Order: Cardiac Injury Profile; SPEC'M 03/28/16 13:27 Test: CPK CREATINE PHOSPHOKINASE; Value: 63; Range: 39-308; Units: U/L; Status: F Test: CK-MB VALUE MASS; Value: 2.1; Range: 0.0-3.6; Units: NG/ML; Status: F Test: MB/CK RELATIVE INDEX; Value: 3.33; Range: < OR =4; Status: F Test Note: ; DIAGNOSIS CRITERIA MMB ng/ml Relative Index (RI) NON-AMI < or = 5 N/A ARGUETA ZONE > 5 < or = 4 AMI > 5 > 4 Lab Order: Troponin; [facility] 03/28/16 13: Test: TROPONIN I; Value: 0.19; Range: < 0.10; Abnormal: Above high normal; Units: NG/ML; Status: F Test Note: ; Troponin I Reference Interval for [employer] LOCI: 99th Percentile= 0.00-0.045 ng/ml Risk Stratification: <= 0.10 ng/ml Decreased Risk for Adverse Clinical Events. 0.10-1.50 ng/ml Increased Risk for Adverse Clinical Events. Evaluation of additional criterion and/or repeat testing in 2-6 hours is suggested to rule out myocardial damage. >= 1.50 ng/ml Indicative of Myocardial Injury. Lab Order: PT/INR; [facility] 03/28/16: Test: PROTHROMBIN TIME; Value: 22.6; Range: 12.3-14.5; Abnormal: Above high normal; Units: SECONDS; Status: F Test: INR; Value: 1.98; Status: F Test Note: ; THERAPUTIC HUMAN INR VALUES INDICATIONS NORMAL RANGES PROPHYLAXIS/TREATMENT OF: VENOUS THROMBOSIS 2.0-3.0 PULMONARY EMBOLISM 2.0-3.0 PREVENTION OF SYSTEMIC EMBOLISM FROM: TISSUE HEART VALVES 2.0-3.0 ACUTE MYOCARDIAL INFARCTION 2.0-3.0 VALVULAR HEART DISEASE 2.0-3.0 ATRIAL FIBRILLATION 2.0-3.0 MECHANICAL VALVES(HIGH RISK) 2.5-3.5 RECURRENT MYOCARDIAL INFARCTION 2.5-3.5 Lab Order: THYROID PROFILE; [facility] 03/28/16 13: Test: T UPTAKE; Value: 38; Range: 33-40; Units: %; Status: F Test: THYROXINE (T4); Value: 8.6; Range: 4.5-12.0; Units: UG/DL; Status: F Test: FREE THYROXINE INDEX; Value: 3.3; Range: 1.4-3.8; Units: %; Status: F Test: THYROID STIMULATING HORMONE; Value: 1.070; Range: 0.358-3.740; Units: uIU/ML; Status: F Lab Order: CARDIAC INJURY PROFILE; [facility] 03/28/16 19:09 Test: CPK CREATINE PHOSPHOKINASE; Value: 63; Range: 39-308; Units: U/L; Status: F Test: CK-MB VALUE MASS; Value: 2.1; Range: 0.0-3.6; Units: NG/ML; Status: F Test: MB/CK RELATIVE INDEX; Value: 3.33; Range: < OR =4; Status: F Test Note: ; DIAGNOSIS CRITERIA MMB ng/ml Relative Index (RI) NON-AMI < or = 5 N/A ARGUETA ZONE > 5 < or = 4 AMI > 5 > 4 Lab Order: TROPONIN; [facility] 03/28/16 19:09 Test: TROPONIN I; Value: 0.14; Range: < 0.10; Abnormal: High; Units: NG/ML; Status: F Test Note: ; Troponin I Reference Interval for [employer] LOCI: 99th Percentile= 0.00-0.045 ng/ml Risk Stratification: <= 0.10 ng/ml Decreased Risk for Adverse Clinical Events. 0.10-1.50 ng/ml Increased Risk for Adverse Clinical Events. Evaluation of additional criterion and/or repeat testing in 2-6 hours is suggested to rule out myocardial damage. >= 1.50 ng/ml Indicative of Myocardial Injury. Lab Order: TYPE & SCREEN; [facility] 03/28/16 14:27 Test: BLOOD TYPE; Value: O POS; Status: F Test: AB SCREEN (INDIRECT STACY)GEL; Value: NEGATIVE; Status: F Lab Order: RETICULOCYTE COUNT; [facility] 03/28/16 13:27 Test: RETICULOCYTE % [id number]; Value: 3.00; Range: 0.5-1.5; Abnormal: Above high normal; Units: %; Status: F Test: RETICULOCYTE ABSOLUTE [id number]; Value: 94; Range: 17-77; Abnormal: Above high normal; Units: x10(9)/L; Status: F Test: RETIC HEMOGLOBIN CONTENT CHr; Value: 28.1; Range: 24-36; Units: PG; Status: F Lab Order: FERRITIN; SPEC'M 03/28/16 13:27 Test: FERRITIN; Value: 143; Range: 26-388; Units: NG/ML; Status: F Lab Order: TOTAL IRON BINDING CAPACIT; SPEC'M 03/28/16 13:27 Test: IRON (FE); Value: 53; Range: 65-175; Abnormal: Below low normal; Units: UG/DL; Status: F Test: TOTAL IRON BINDING CAPACITY; Value: 227; Range: 250-450; Abnormal: Below low normal; Units: UG/DL; Status: F Test: PERCENT SATURATION; Value: 23.3; Range: 19.7-37.4; Units: %; Status: F Radiology Order: Chest, 1 View Test: Chest, 1 View REASON FOR EXAMINATION: Syncope; AP PORTABLE CHEST: 03/28/2016; ; COMPARISON: 03/24/2016, 03/08/2016.; ; CLINICAL HISTORY: Syncope.; ; Two-view show the lungs well inflated. There is interstitial fibrotic change and; hyperinflation with linear fibrotic changes in the left lateral base as before.; There is no definite infiltrate or effusion. Heart size normal for portable; technique. There is no rimma edema, dense consolidation or definite effusion.; Sternotomy wires and mediastinal clips are again seen unchanged. The aorta is; mildly tortuous without aneurysm. Airway intact. Slight dextroconvex curvature; upper thoracic spine degenerative changes of the spine and shoulders.; ; IMPRESSION:; ; 1. Some hyperinflation with COPD. Linear fibrotic changes in left base and; prior CABG. All findings stable. Nothing acute.; ; ; Signed by; Roberto Salamanca MD 03/28/2016 06:00 P; Radiology Order: CT Head Without Contrast Test: CT Head Without Contrast REASON FOR EXAMINATION: Syncope; CT brain without contrast: 03/28/2016.; ; Clinical history: Syncope.; ; Technique: Noncontrast images through the brain were provided. Soft tissue and; bone windows for each slice level reviewed.; ; No prior study.; ; Findings: Ventricles midline, symmetric and their size proportionate to the; diffuse cerebral atrophy. Atrophy greatest in the temporal and frontal lobes but; present throughout. The argueta white junction differentiation is maintained.; There is periventricular and deep central white matter hypodensity suggesting; chronic small vessel ischemic changes of aging. No vascular territory infarct,; hemorrhage, mass or mass effect in the brain. Brainstem grossly intact; cerebellum shows atrophy bilaterally without mass. Basal cisterns intact.; Mastoids and visualized sinuses were clear. The calvarium and skull base are; without fracture or focal lesion. There were calcifications in the carotid; siphons.; ; Impression:; ; 1. Moderately severe diffuse atrophy with ventriculomegaly in proportion. No; intracranial hemorrhage, mass, acute infarct or edema. Calcified carotid; siphons.; ; 2. No fracture of the skull base or calvarium with the visible sinuses and; mastoids clear. Nothing acute.; ; ; Signed by; Roberto Salamanca MD 03/28/2016 05:59 P; Outcome: 15:33 Decision to Hospitalize by Provider. ke 19:41 Discharge Assessment: Patient awake, alert and oriented x 3. No cognitive and/or tm5 functional deficits noted. Patient verbalized understanding of disposition instructions. patient administered narcotics - no. The following High Risk Discharge criteria are identified: None. Admitted to PCU accompanied by nurse, accompanied by tech, via stretcher, with oxygen, on monitor, with chart. Condition: good Condition: stable Condition: improved. CT Study completed. Property :Personal belongings accompany Pt. 21:26 Patient left the ED. tm5 Signatures: Dispatcher [employer] EDMS Yolanda Clemente, Medical Coordinator Pesticide Use Unit lbd Keely Duque, Reg Reg gb Aurelio Kenyon, ROTARY ENGRAVER ROTARY ENGRAVER ke Jennifer Del Castillo, STOCK REPAIRER STOCK REPAIRER ct3 Tayla Maya RN RN mk4 Kim Lozano Tonya, RN RN tm5 Leandra Mcghee2 Corrections: (The following items were deleted from the chart) 16:02 16:01 Pain: Denies pain. mk4 mk4 16:02 14:20 Respiratory: Airway is patent Respiratory effort is even, unlabored, Respiratory mk4 pattern is regular, mk4 MTDD
[2016-03-28] MEDS: PRAVASTATIN 20 MG TAB PO SCH (23:06)
[2016-03-28] MEDS: NS 1,000 ML IV SCH (23:07)
[2016-03-28] MEDS: ACETAMINOPHEN TAB 650MG DOSE (2X325MG) PO PRN (23:25)
[2016-03-28 23:53] VITALS: BP 107/73
[2016-03-29] VITALS (8 sets, daily range): BP systolic 85–123; BP diastolic 52–77
[2016-03-29] MEDS: NS 1,000 ML IV SCH (04:49)
[2016-03-29 05:28] LABS: BASO # 0.1 K/mm3 (0.0-0.2); BASO % 0.7 % (0.0-1.0); EOS # 0.2 K/mm3 (0.0-0.50); EOS % 1.7 % (0.0-3.0); LARGE UNSTAINED CELL # 0.2 K/mm3 (0.0-0.4); LARGE UNSTAINED CELL % 2.1 % (0.0-4.0); LYMPH # 1.6 K/mm3 (1.5-4.5); LYMPH % 16.7 % (24.0-44.0); MEAN CORPUSCULAR HGB CONC 32.2 g/dl (32.0-36.5); MEAN CORPUSCULAR VOLUME 96.4 fl (80.0-96.0); MONO # 0.5 K/mm3 (0.0-0.8); MONO % 4.8 % (0.0-5.0); NEUTROPHILS # 7.3 K/mm3 (1.8-7.7); NEUTROPHILS % 74.1 % (36.0-66.0); PLATELET COUNT, AUTOMATED 381 k/mm3 (150-450); RED CELL DISTRIBUTION WIDTH 12.6 % (11.5-14.5); WHITE BLOOD COUNT 9.8 K/mm3 (4.0-10.0)
[2016-03-29 05:29] LABS: INR 2.26
[2016-03-29 05:45] LABS: ALBUMIN 2.2 GM/DL (3.2-5.2); ALBUMIN/GLOBULIN RATIO 0.67 (1.00-1.93); ALKALINE PHOSPHATASE 122 U/L (45-117); ALT/SGPT 89 U/L (12-78); ANION GAP 7 MEQ/L (8-16); AST/SGOT 73 U/L (15-37); BILIRUBIN,TOTAL 0.5 MG/DL (0.2-1.0); BLOOD UREA NITROGEN 63 MG/DL (7-18); CALCIUM LEVEL 7.6 MG/DL (8.8-10.2); CARBON DIOXIDE LEVEL 26 MEQ/L (21-32); CHLORIDE LEVEL 110 MEQ/L (98-107); CREATININE FOR GFR 1.11 MG/DL (0.70-1.30); GLOMERULAR FILTRATION RATE > 60.0 (>35); GLUCOSE, FASTING 100 MG/DL (83-110); MAGNESIUM LEVEL 2.4 MG/DL (1.8-2.4); POTASSIUM SERUM 4.1 MEQ/L (3.5-5.1); SODIUM LEVEL 143 MEQ/L (136-145); TOTAL PROTEIN 5.5 GM/DL (6.4-8.2)
--- NOTE | 2016-03-29 08:23 | ECGEPIP ---
Stationary ECG Study 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
[2016-03-29] MEDS: LEVOTHYROXINE 0.1 MG TAB (100 MCG) PO SCH (08:39)
[2016-03-29] MEDS: MULTIVITAMINS/MINERALS THERAP 1 TAB PO SCH (08:39)
[2016-03-29] MEDS ORDERED: PANTOPRAZOLE 40MG TAB (PROTONIX) PO SCH (09:00)
--- NOTE | 2016-03-29 10:49 | IPNPDOC ---
Assessment/Plan Date Seen The patient was seen on 03/29/16. Attending Note: I saw and examined Mr. Luna and I discussed his care with DENNY Puentes - I agree with her note below. 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 Patient has had 4 melanotic stools this afternoon. I am concerned that he could have a fistula from his AAA to his gut - will check stat CT scan of abdomen and pelvis. Patient states that if a fistula were present, he would want to be transferred for surgery if indicated. His Hgb is 8.5 - as he has continued to have melanotic stools, is orthostatic, and he has a history of CAD s/p CABG, we will transfuse 2U pRBCs now. Will also stop coumadin and reverse anticoagulation with FFP and vitamin K. I discussed this with the patient and Zo Mcdonald updated the patient's son. (KES) Problems Problems: (1) Syncope Status: Acute Problem Text: Telemetry uneventful so far Troponin minimally elevated yesterday - normalized today EKG on admission with t-wave inversion inferior leads new c/w 03/08/16 Repeat EKG now Consider Cardiology consultation BP remains soft at times Hgb down Concerning for GI blood loss - D/W attending (2) Acute blood loss anemia Status: Acute Response to Treatment: Worse Problem Text: 03/29 - Hgb was approximately 11 after knee surgery. now down to 8.5. Heme + stool, ? black stool per patient No h/o EGD/Colonoscopy in past Continue PPI Monitor trend - Consider GI consultation (3) Elevated liver enzymes Status: Acute Problem Text: No abd pain or RUQ tenderness He reports some CURRY with slightly elevated BNP, but no clear signs of CHF otherwise to suggest liver enzymes from passive hepatic congestion. Follow trend Get Liver US Statin on hold but has h/o CAD and Carotid stenosis so needs this restarted as soon as possible. (4) Status post total knee replacement, right Status: Acute Response to Treatment: Improving Problem Text: Surgery 03/22 - Dr. Jalloh On COumadin for DVT prophylaxis - INR therapeutic (5) HTN (hypertension) Status: Acute (6) Hypothyroid Status: Chronic Response to Treatment: Stable (7) CAD (coronary artery disease), [place] coronary artery Status: Chronic Response to Treatment: Stable (8) Carotid artery narrowing Status: Chronic Response to Treatment: Stable Plan / VTE VTE Prophylaxis Ordered?: Yes (Coumadin) Subjective Review of Systems CC/HPI The patient is a 89-year-old male admitted with a reason for visit of Syncope. Events since last encounter Feels better today. ambulated to BR without lightheadedness. + BM this am - he states it was "black" but nursing notes say brown Constitutional: Denies: Chills, Fever Pulmonary: Denies: Cough, Dyspnea Cardiovascular: Denies: Chest Pain, Orthopnea, Palpitations Gastrointestinal: Denies: Abdominal Pain, Constipation, Diarrhea, Nausea, Vomiting Objective Physical Examination General Exam: Positive: Alert, No Acute Distress Chest Exam: Positive: Clear to auscultation, Normal air movement Heart Exam: Positive: Murmurs (3/6 JIMBO apex), Rate Normal Abdomen Exam: Positive: Normal bowel sounds, Soft, Negative: Tenderness Extremity Exam: Negative: Edema Vital Signs/I&O Vital Signs Date Time Temp Pulse Resp B/P Pulse Ox O2 Delivery O2 Flow Rate FiO2 03/29/16 08:00 97.8 72 20 108/73 97 Room Air I&O- Last 24 Hours up to 6 AM 03/29/16 05:59 Intake Total 800 ml Output Total 675 ml Balance 125 ml Laboratory Data Labs 24H Laboratory Tests 2 03/28/16 13:27: Absolute Reticulocyte Count 94H, Anion Gap 9, White Blood Count 11.2H, Red Blood Count 3.02L, Hemoglobin 9.4L, Hematocrit 29.3L, Mean Corpuscular Volume 97.0H, Mean Corpuscular Hemoglobin 31.0, Mean Corpuscular Hemoglobin Concent 32.0, Red Cell Distribution Width 12.5, Platelet Count 400, Neutrophils (%) ( Auto) 89.7H, Lymphocytes (%) (Auto) 5.5L, Monocytes (%) (Auto) 3.3, Eosinophils (%) (Auto) 0.1, Basophils (%) (Auto) 0.4, Neutrophils # (Auto) 10.0H, Lymphocytes # (Auto) 0.6L, Monocytes # (Auto) 0.4, Eosinophils # (Auto) 0.0, Basophils # (Auto) 0.0, Blood Urea Nitrogen 69H, Creatinine 1.16, Sodium Level 140, Potassium Level 4.5, Chloride Level 104, Carbon Dioxide Level 27, Calcium Level 8.3L, Total Creatine Kinase 63, Creatine Kinase MB 2.1, Creatine Kinase MB Relative Index 3.33, Ferritin 143, Free Thyroxine Index 3.3, Glomerular Filtration Rate > 60.0, Iron Level 53L, Large Unclassified Cells # 0.1, Large Unclassified Cells % 1.0, Percent Reticulocyte Count 3.00H, Prothromb Time International Ratio 1.98, Prothrombin Time 22.6H, Reticulocyte Hgb Content (CHr ) 28.1, Thyroid Stimulating Hormone (TSH) 1.070, Thyroxine (T4) 8.6, Total Iron Binding Capacity 227L, Transferrin % Saturation 23.3, Triiodothyronine (T3) Uptake 38, Troponin I 0.19H 03/28/16 19:09: Total Creatine Kinase 63, Creatine Kinase MB 2.1, Creatine Kinase MB Relative Index 3.33, Troponin I 0.14#H 03/28/16 23:28: Urine Amorphous Sediment , Urine Appearance CLEAR, Urine Color YELLOW, Urine pH 5.0, Urine Specific [place] 1.018, Urine Protein NEGATIVE, Urine Glucose (UA) NEGATIVE, Urine Ketones NEGATIVE, Urine Urobilinogen 0.2, Urine Bilirubin NEGATIVE, Urine Leukocyte Esterase TRACEH, Urine Bacteria (Auto) NEGATIVE, Urine Blood NEGATIVE, Urine Calcium Carbonate Cryst(Auto) , Urine Calcium Oxalate Cryst (Auto) , Urine Calcium Phosphate Kailyn (Auto) , Urine Cellular Casts , Urine Cystine Crystals , Urine Granular Casts (Auto) , Urine Hyaline Casts (Auto) 0, Urine Leucine Crystals , Urine Mucus (Auto) SMALL, Urine Nitrite NEGATIVE, Urine Oval Fat Bodies (Auto) , Urine RBC (Auto) 1, Urine Renal Epithelial Cells , Urine Sperm (Auto) , Urine Squamous Epithelial Cells 0 , Urine Transitional Epithelial Cells , Urine Trichomonas (Auto) , Urine Triple Phosphate Cryst (Auto) , Urine Tyrosine Crystals , Urine Uric Acid Crystals ( Auto) , Urine WBC (Auto) 9H, Urine Waxy Casts (Auto) , Urine Yeast-Like Cells ( Auto) 03/29/16 04:54: Anion Gap 7L, White Blood Count 9.8, Red Blood Count 2.76L, Hemoglobin 8.5L, Hematocrit 26.6L, Mean Corpuscular Volume 96.4H, Mean Corpuscular Hemoglobin 31.0, Mean Corpuscular Hemoglobin Concent 32.2, Red Cell Distribution Width 12.6 , Platelet Count 381, Neutrophils (%) (Auto) 74.1H, Lymphocytes (%) (Auto) 16.7L , Monocytes (%) (Auto) 4.8, Eosinophils (%) (Auto) 1.7, Basophils (%) (Auto) 0.7 , Neutrophils # (Auto) 7.3, Lymphocytes # (Auto) 1.6, Monocytes # (Auto) 0.5, Eosinophils # (Auto) 0.2, Basophils # (Auto) 0.1, Blood Urea Nitrogen 63H, Creatinine 1.11, Sodium Level 143, Potassium Level 4.1, Chloride Level 110H, Carbon Dioxide Level 26, Calcium Level 7.6L, Total Creatine Kinase 57, Creatine Kinase MB 1.5, Creatine Kinase MB Relative Index 2.63, Glomerular Filtration Rate > 60.0, Large Unclassified Cells # 0.2, Large Unclassified Cells % 2.1, Prothromb Time International Ratio 2.26, Prothrombin Time 25.0H, Troponin I 0.08 #, Aspartate Amino Transf (AST/SGOT) 73H, Alanine Aminotransferase (ALT/SGPT) 89H, Alkaline Phosphatase 122H, Total Bilirubin 0.5, Total Protein 5.5L, Albumin 2.2L, Albumin/Globulin Ratio 0.67L, Magnesium Level 2.4 CBC/BMP Laboratory Tests 03/28/16 13:27 Calcium Level 8.3 L, Total Creatine Kinase 63, Red Blood Count 3.02 L, Mean Corpuscular Volume 97.0 H, Mean Corpuscular Hemoglobin 31.0, Mean Corpuscular Hemoglobin Concent 32.0, Red Cell Distribution Width 12.5, Neutrophils (%) (Auto ) 89.7 H, Lymphocytes (%) (Auto) 5.5 L, Monocytes (%) (Auto) 3.3, Eosinophils (% ) (Auto) 0.1, Basophils (%) (Auto) 0.4, Neutrophils # (Auto) 10.0 H, Lymphocytes # (Auto) 0.6 L, Monocytes # (Auto) 0.4, Eosinophils # (Auto) 0.0, Basophils # (Auto) 0.0 03/29/16 04:54 Calcium Level 7.6 L, Total Creatine Kinase 57, Red Blood Count 2.76 L, Mean Corpuscular Volume 96.4 H, Mean Corpuscular Hemoglobin 31.0, Mean Corpuscular Hemoglobin Concent 32.2, Red Cell Distribution Width 12.6, Neutrophils (%) (Auto ) 74.1 H, Lymphocytes (%) (Auto) 16.7 L, Monocytes (%) (Auto) 4.8, Eosinophils ( %) (Auto) 1.7, Basophils (%) (Auto) 0.7, Neutrophils # (Auto) 7.3, Lymphocytes # (Auto) 1.6, Monocytes # (Auto) 0.5, Eosinophils # (Auto) 0.2, Basophils # ( Auto) 0.1, Aspartate Amino Transf (AST/SGOT) 73 H, Alanine Aminotransferase (ALT /SGPT) 89 H, Alkaline Phosphatase 122 H, Total Bilirubin 0.5, Total Protein 5.5 L, Albumin 2.2 L Microbiology Microbiology 03/28/16 Blood Culture, Received Pending 03/28/16 Stool Occult Blood (DIEGO) - Final, Complete 03/28/16 Urine Culture, Received Pending ZO MCDONALD PA-C Mar 29, 2016 10:49 VINICIO CASTREJON MD Mar 29, 2016 17:01
[2016-03-29 15:25] LABS: MEAN CORPUSCULAR HEMOGLOBIN 30.1 pg (27.0-33.0); MEAN CORPUSCULAR HGB CONC 31.6 g/dl (32.0-36.5); MEAN CORPUSCULAR VOLUME 95.3 fl (80.0-96.0); RED CELL DISTRIBUTION WIDTH 12.6 % (11.5-14.5); WHITE BLOOD COUNT 11.7 K/mm3 (4.0-10.0)
--- NOTE | 2016-03-29 16:20 | REP ---
Right upper quadrant sonography: History: Elevated liver enzymes. No comparison imaging. Findings: Incidental note is made of a large abdominal aortic aneurysm. This measures 8.1 centimeters AP x 8.3 cm transverse x 12.3 cm in length. There is circumferential mural thrombus. A small contracted appearing gallbladder is seen containing shadowing material consistent with cholelithiasis. This is difficult to visualize due to subcostal scanning windows. Common bile duct is normal measuring 0.4 cm in greatest diameter. There is evidence of mild fatty infiltration of the liver. The pancreas is obscured by abdominal gas. No right renal abnormality is seen. Right kidney measures 11.2 x 5.5 x 4.8 cm. Impression: 8.1 x 8.3 x 12.0 cm abdominal aortic aneurysm with mural thrombus. Suspect a contracted gallbladder full of stones. Less than optimal scanning windows. Mild fatty infiltration of the liver. Signed by Froy Leone MD 03/29/2016 04:25 P
[2016-03-29] MEDS ORDERED: NS 1,000 ML IV SCH (16:25)
[2016-03-29] MEDS ORDERED: PHYTONADIONE 10MG/ML INJECTION (J3430) SC ONE (16:30)
[2016-03-29] MEDS ORDERED: GASTROGRAFIN SOLUTION 30ML PO ONE (17:15)
[2016-03-29] MEDS ORDERED: GASTROGRAFIN SOLUTION 30ML (Q9963) PO ONE (17:45)
--- NOTE | 2016-03-29 18:33 | IPNPDOC ---
Assessment/Plan Date Seen The patient was seen on 03/29/16. Attending note: Patient drank contrast material before CT scan could be canceled after consulting with Dr. Hutchinson, so CT scan was performed with PO contrast only. (KES) Problems Problems: (1) AAA (abdominal aortic aneurysm) Status: Chronic Problem Text: Liver US showed 8x8x12 cm AAA with mural thrombus Dr. Hutchinson has been consulted I spoke with him - he does not feel CT abd pelvis is needed right now He may need to consider EGD depending on if he continues to drop his hgb and pass melena For now I have ordered 2 units PRBC due to orthostatic vs in patient who is actively passing melena per nursing report. Coumadin stopped Giveing Vit K and FFP HCP called and made aware of plan Monitor Hgb q 6H and BP Give IVF as needed if BP low (2) Syncope Status: Acute Problem Text: Telemetry uneventful so far Troponin minimally elevated yesterday - normalized today EKG on admission with t-wave inversion inferior leads new c/w 03/08/16 Repeat EKG now Consider Cardiology consultation BP remains soft at times Hgb down Concerning for GI blood loss - D/W attending (3) Acute blood loss anemia Status: Acute Response to Treatment: Worse Problem Text: 03/29 - Hgb was approximately 11 after knee surgery. now down to 8.5. Heme + stool, ? black stool per patient No h/o EGD/Colonoscopy in past Continue PPI Monitor trend - Consider GI consultation (4) Elevated liver enzymes Status: Acute Problem Text: No abd pain or RUQ tenderness He reports some CURRY with slightly elevated BNP, but no clear signs of CHF otherwise to suggest liver enzymes from passive hepatic congestion. Follow trend Get Liver US Statin on hold but has h/o CAD and Carotid stenosis so needs this restarted as soon as possible. (5) Status post total knee replacement, right Status: Acute Response to Treatment: Improving Problem Text: Surgery 03/22 - Dr. Jalloh On COumadin for DVT prophylaxis - INR therapeutic (6) HTN (hypertension) Status: Acute (7) Hypothyroid Status: Chronic Response to Treatment: Stable (8) CAD (coronary artery disease), [place] coronary artery Status: Chronic Response to Treatment: Stable (9) Carotid artery narrowing Status: Chronic Response to Treatment: Stable Plan / VTE VTE Prophylaxis Ordered?: No (Coumadin) VTE Exclusion Pharmacological: Bleeding Risk Subjective Review of Systems CC/HPI The patient is a 89-year-old male admitted with a reason for visit of Syncope. Objective Physical Examination General Exam: Positive: Alert, No Acute Distress Chest Exam: Positive: Clear to auscultation, Normal air movement Heart Exam: Positive: Murmurs (3/6 JIMBO apex), Rate Normal Abdomen Exam: Positive: Normal bowel sounds, Soft, Negative: Tenderness Extremity Exam: Negative: Edema Vital Signs/I&O Vital Signs Date Time Temp Pulse Resp B/P Pulse Ox O2 Delivery O2 Flow Rate FiO2 03/29/16 16:31 98.1 75 18 121/66 97 Room Air I&O- Last 24 Hours up to 6 AM 03/29/16 06:00 Intake Total 800 ml Output Total 675 ml Balance 125 ml Laboratory Data Labs 24H Laboratory Tests 2 03/28/16 19:09: Creatine Kinase MB 2.1, Creatine Kinase MB Relative Index 3.33, Total Creatine Kinase 63, Troponin I 0.14#H 03/28/16 23:28: Urine Amorphous Sediment , Urine Appearance CLEAR, Urine Color YELLOW, Urine pH 5.0, Urine Specific [place] 1.018, Urine Protein NEGATIVE, Urine Glucose (UA) NEGATIVE, Urine Ketones NEGATIVE, Urine Urobilinogen 0.2, Urine Bilirubin NEGATIVE, Urine Leukocyte Esterase TRACEH, Urine Bacteria (Auto) NEGATIVE, Urine Blood NEGATIVE, Urine Calcium Carbonate Cryst(Auto) , Urine Calcium Oxalate Cryst (Auto) , Urine Calcium Phosphate Kailyn (Auto) , Urine Cellular Casts , Urine Cystine Crystals , Urine Granular Casts (Auto) , Urine Hyaline Casts (Auto) 0, Urine Leucine Crystals , Urine Mucus (Auto) SMALL, Urine Nitrite NEGATIVE, Urine Oval Fat Bodies (Auto) , Urine RBC (Auto) 1, Urine Renal Epithelial Cells , Urine Sperm (Auto) , Urine Squamous Epithelial Cells 0 , Urine Transitional Epithelial Cells , Urine Trichomonas (Auto) , Urine Triple Phosphate Cryst (Auto) , Urine Tyrosine Crystals , Urine Uric Acid Crystals ( Auto) , Urine WBC (Auto) 9H, Urine Waxy Casts (Auto) , Urine Yeast-Like Cells ( Auto) 03/29/16 04:54: Creatine Kinase MB 1.5, Creatine Kinase MB Relative Index 2.63, Total Creatine Kinase 57, Troponin I 0.08#, Blood Urea Nitrogen 63H, Creatinine 1.11, Sodium Level 143, Potassium Level 4.1, Chloride Level 110H, Carbon Dioxide Level 26, Calcium Level 7.6L, Aspartate Amino Transf (AST/SGOT) 73H, Alanine Aminotransferase (ALT/SGPT) 89H, Alkaline Phosphatase 122H, Total Bilirubin 0.5 , Total Protein 5.5L, Albumin 2.2L, Albumin/Globulin Ratio 0.67L, Anion Gap 7L, White Blood Count 9.8, Red Blood Count 2.76L, Hemoglobin 8.5L, Hematocrit 26.6L , Mean Corpuscular Volume 96.4H, Mean Corpuscular Hemoglobin 31.0, Mean Corpuscular Hemoglobin Concent 32.2, Red Cell Distribution Width 12.6, Platelet Count 381, Neutrophils (%) (Auto) 74.1H, Lymphocytes (%) (Auto) 16.7L, Monocytes (%) (Auto) 4.8, Eosinophils (%) (Auto) 1.7, Basophils (%) (Auto) 0.7, Neutrophils # (Auto) 7.3, Lymphocytes # (Auto) 1.6, Monocytes # (Auto) 0.5, Eosinophils # (Auto) 0.2, Basophils # (Auto) 0.1, Glomerular Filtration Rate > 60.0, Large Unclassified Cells # 0.2, Large Unclassified Cells % 2.1, Magnesium Level 2.4, Prothromb Time International Ratio 2.26, Prothrombin Time 25.0H 03/29/16 11:05: Creatine Kinase MB 1.8, Creatine Kinase MB Relative Index 2.46, Total Creatine Kinase 73, Troponin I 0.05# CBC/BMP Laboratory Tests 03/29/16 04:54 Calcium Level 7.6 L, Aspartate Amino Transf (AST/SGOT) 73 H, Alanine Aminotransferase (ALT/SGPT) 89 H, Total Creatine Kinase 57, Alkaline Phosphatase 122 H, Total Bilirubin 0.5, Total Protein 5.5 L, Albumin 2.2 L, Red Blood Count 2.76 L, Mean Corpuscular Volume 96.4 H, Mean Corpuscular Hemoglobin 31.0, Mean Corpuscular Hemoglobin Concent 32.2, Red Cell Distribution Width 12.6 , Neutrophils (%) (Auto) 74.1 H, Lymphocytes (%) (Auto) 16.7 L, Monocytes (%) ( Auto) 4.8, Eosinophils (%) (Auto) 1.7, Basophils (%) (Auto) 0.7, Neutrophils # ( Auto) 7.3, Lymphocytes # (Auto) 1.6, Monocytes # (Auto) 0.5, Eosinophils # (Auto ) 0.2, Basophils # (Auto) 0.1 03/29/16 14:59 Red Blood Count 2.83 L, Mean Corpuscular Volume 95.3, Mean Corpuscular Hemoglobin 30.1, Mean Corpuscular Hemoglobin Concent 31.6 L, Red Cell Distribution Width 12.6 Microbiology Microbiology 03/28/16 Blood Culture - Preliminary, Resulted No growth after 24 hours . All specim... 03/28/16 Stool Occult Blood (DIEGO) - Final, Complete 03/28/16 Urine Culture, Received Pending ZO MCDONALD PA-C Mar 29, 2016 18:33 VINICIO CASTREJON MD Mar 30, 2016 06:52
[2016-03-29] MEDS ORDERED: ISOVUE-370 76% 100ML VIAL (Q9967) As Ordered ONE (18:41)
[2016-03-29] MEDS: PANTOPRAZOLE 40MG INJ (PROTONIX) (C9113) IV SCH (20:29)
[2016-03-29] MEDS: ACETAMINOPHEN TAB 650MG DOSE (2X325MG) PO PRN (20:30)
[2016-03-29] MEDS: PRAVASTATIN 20 MG TAB PO SCH (20:30)
--- NOTE | 2016-03-29 20:30 | REPUSA ---
CLINICAL HISTORY: Rule out fistula TECHNIQUE: CT of the abdomen and pelvis was performed without intravenous contrast by obtaining gino guous CT axial slices from level of the heart to the proximal femoral diaphyses. Multiplanar reformat s were obtained in the coronal and sagittal projections. COMPARISON: None FINDINGS : LOWER CHEST: The lung bases are clear. Heart is normal in size. No pleural or pericardial effusion is seen. LIVER: The liver is normal in size and contour. BILIARY SYSTEM: No intrahepatic biliary ductal dilatation is seen. The common duct is normal in calib er. The gallbladder is unremarkable with no focal or diffuse wall thickening seen. No pericholecystic fluid is seen. No calcified biliary calculi are identified. PANCREAS: The pancreas is normal in size, contour and density. No suspicious cystic lesion or ductal dilatation. SPLEEN: Normal in size with no suspicious cystic lesion. ADRENALS: The adrenal glands are unremarkable. KIDNEYS/URETERS: The kidneys are normal in size. No calcified renal or ureteral calculi are seen. No suspicious cystic lesion or hydronephrosis. The ureters are not dilated. URINARY BLADDER: Circumferential wall thickening noted which may be secondary to outlet obstructive p rocesses from prostatomegaly or neurogenic alteration. No diverticular stones identified. PROSTATE/SEMINAL VESICLES: Prostate measures 4.5 x 3.5 cm and vesicles unremarkable. AORTA AND ILIAC ARTERIES: Aortoiliac atherosclerotic calcifications noted with a 7.9 x 8.0 cm infrare nal abdominal aortic aneurysm, bilateral common iliac artery aneurysms measuring 3.6 cm on right and 2.8 cm on left. LYMPH NODES: No enlarged adenopathy. GASTROINTESTINAL: Moderate hiatal hernia. Colonic diverticulosis without findings of acute diverticul itis. Duodenum and remaining bowel normal in caliber. PERITONEUM/RETROPERITONEUM: No ascites or suspicious fluid collection, extraluminal air, or suspiciou s mass. ABDOMINAL/PELVIC WALL: No hernia is identified. OSSEOUS STRUCTURES/SOFT TISSUES: No suspicious osseous lesion, acute fracture, or soft tissue abnorma lity. Multilevel degenerative spurring of the spine. Status post median sternotomy. Soft tissues demo nstrate fatty changes in bilateral thigh compartments. IMPRESSION : 1. Assessment for fistula is limited given lack of intravenous contrast. Moderate hiatal hernia. No e vidence of obstruction. 2. Aortoiliac atherosclerotic calcifications noted with a 7.9 x 8.0 cm infrarenal abdominal aortic an eurysm, bilateral common iliac artery aneurysms measuring 3.6 cm on right and 2.8 cm on left. 3. Circumferential wall thickening noted which may be secondary to outlet obstructive processes from prostatomegaly or neurogenic alteration.
[2016-03-30] VITALS (7 sets, daily range): BP systolic 109–139; BP diastolic 64–96
[2016-03-30 00:58] LABS: MEAN CORPUSCULAR HEMOGLOBIN 30.6 pg (27.0-33.0); MEAN CORPUSCULAR VOLUME 92.7 fl (80.0-96.0); WHITE BLOOD COUNT 9.8 K/mm3 (4.0-10.0)
[2016-03-30] MEDS: LEVOTHYROXINE 0.1 MG TAB (100 MCG) PO SCH (05:10)
[2016-03-30 06:00] LABS: INR 1.87
[2016-03-30 06:01] LABS: BASO # 0.1 K/mm3 (0.0-0.2); BASO % 0.7 % (0.0-1.0); EOS # 0.2 K/mm3 (0.0-0.50); EOS % 2.2 % (0.0-3.0); LARGE UNSTAINED CELL # 0.2 K/mm3 (0.0-0.4); LARGE UNSTAINED CELL % 2.2 % (0.0-4.0); LYMPH # 1.4 K/mm3 (1.5-4.5); LYMPH % 15.9 % (24.0-44.0); MEAN CORPUSCULAR HEMOGLOBIN 29.7 pg (27.0-33.0); MEAN CORPUSCULAR HGB CONC 31.8 g/dl (32.0-36.5); MEAN CORPUSCULAR VOLUME 93.2 fl (80.0-96.0); MONO # 0.5 K/mm3 (0.0-0.8); MONO % 5.8 % (0.0-5.0); NEUTROPHILS # 6.4 K/mm3 (1.8-7.7); NEUTROPHILS % 73.2 % (36.0-66.0); PLATELET COUNT, AUTOMATED 436 k/mm3 (150-450); RED CELL DISTRIBUTION WIDTH 14.2 % (11.5-14.5); WHITE BLOOD COUNT 8.8 K/mm3 (4.0-10.0)
[2016-03-30 06:10] LABS: ALBUMIN 2.4 GM/DL (3.2-5.2); ALBUMIN/GLOBULIN RATIO 0.67 (1.00-1.93); ALKALINE PHOSPHATASE 129 U/L (45-117); ALT/SGPT 139 U/L (12-78); ANION GAP 4 MEQ/L (8-16); AST/SGOT 149 U/L (15-37); BILIRUBIN,TOTAL 1.1 MG/DL (0.2-1.0); BLOOD UREA NITROGEN 42 MG/DL (7-18); CALCIUM LEVEL 7.8 MG/DL (8.8-10.2); CARBON DIOXIDE LEVEL 28 MEQ/L (21-32); CHLORIDE LEVEL 110 MEQ/L (98-107); CREATININE FOR GFR 1.03 MG/DL (0.70-1.30); GLOMERULAR FILTRATION RATE > 60.0 (>35); GLUCOSE, FASTING 100 MG/DL (83-110); MAGNESIUM LEVEL 2.4 MG/DL (1.8-2.4); SODIUM LEVEL 142 MEQ/L (136-145)
--- NOTE | 2016-03-30 08:19 | IPNPDOC ---
Assessment/Plan Date Seen The patient was seen on 03/30/16. Attending Note: I saw and examined Mr. Luna this morning; I d/w DENNY Puentes and I agree with her note below. The patient had no complaints this morning. I discussed his care with his nurse, who states patient is scheduled for an EGD by Dr. Hutchinson at 15:30 tomorrow to look for source of bleeding. H/H is stable - most recently was 10.2/30.1 at ~noon today. Bleeding may have stopped due to reversal of coumadin. After EGD, we will need to discuss with Ortho whether to restart coumadin or place IVC filter. Additionally, followup with Vascular Surgery needs to be arranged - this may involve direct transfer or outpatient follow-up after rehab is completed, based on the patient's wishes. (KES). Problems Problems: (1) AAA (abdominal aortic aneurysm) Status: Chronic Problem Text: Liver US showed 8x8x12 cm AAA with mural thrombus Dr. Hutchinson has been consulted I spoke with him - he does not feel CT abd pelvis is needed right now He may need to consider EGD depending on if he continues to drop his hgb and pass melena For now I have ordered 2 units PRBC due to orthostatic vs in patient who is actively passing melena per nursing report. Coumadin stopped Giveing Vit K and FFP HCP called and made aware of plan Monitor Hgb q 6H and BP Give IVF as needed if BP low 03/29 - CT abd/pelvis with oral contrast only shows AAA as well as BL ileac a. aneurysms. D/W Dr. Hutchinson plan regarding these - I expect we will transfer to [facility] once GI bleed issues has clearly stabilized (2) Acute blood loss anemia Status: Acute Response to Treatment: Worse Problem Text: 2 - Hgb was approximately 11 after knee surgery. now down to 8.5. Heme + stool, ? black stool per patient No h/o EGD/Colonoscopy in past Continue PPI Monitor trend - Consider GI consultation 03/30 - UGI bleed with melena - s/p 2 units PRBC yesterday - monitor trend - Dr. Hutchinson consulted - may need EGD to look for source Continue BID IV PPI (3) Syncope Status: Acute Problem Text: Telemetry uneventful so far Troponin minimally elevated yesterday - normalized today EKG on admission with t-wave inversion inferior leads new c/w 03/08/16 Repeat EKG now Consider Cardiology consultation BP remains soft at times Hgb down Concerning for GI blood loss - D/W attending (4) Elevated liver enzymes Status: Acute Problem Text: No abd pain or RUQ tenderness He reports some CURRY with slightly elevated BNP, but no clear signs of CHF otherwise to suggest liver enzymes from passive hepatic congestion. Follow trend Get Liver US Statin on hold but has h/o CAD and Carotid stenosis so needs this restarted as soon as possible. 2/2 - Liver enzymes continue to rise this am with slight elevation in T. Bili - Liver Us showed contracted GB full of stones No n/v - nontender D/W general surgery (5) Status post total knee replacement, right Status: Acute Response to Treatment: Improving Problem Text: Surgery 03/22 - Dr. Jalloh On COumadin for DVT prophylaxis - INR therapeutic 2/2 - Coumadin reversed d/t GI bleed May need IVC filter (6) HTN (hypertension) Status: Acute (7) Hypothyroid Status: Chronic Response to Treatment: Stable (8) CAD (coronary artery disease), [place] coronary artery Status: Chronic Response to Treatment: Stable (9) Carotid artery narrowing Status: Chronic Response to Treatment: Stable Plan / VTE VTE Prophylaxis Ordered?: No (Coumadin) VTE Exclusion Pharmacological: Bleeding Risk Subjective Review of Systems CC/HPI The patient is a 89-year-old male admitted with a reason for visit of Syncope. Events since last encounter NO complaints. No BM since yesterday. Constitutional: Denies: Chills, Fever Pulmonary: Denies: Cough, Dyspnea Cardiovascular: Denies: Chest Pain, Orthopnea, Palpitations Gastrointestinal: Reports: Melena (Last melenotic stool yesterday afternoon - no BM since then), Denies: Abdominal Pain, Constipation, Diarrhea, Nausea, Vomiting Objective Physical Examination General Exam: Positive: Alert, No Acute Distress Chest Exam: Positive: Clear to auscultation, Normal air movement Heart Exam: Positive: Murmurs (3/6 JIMBO apex), Rate Normal Abdomen Exam: Positive: Normal bowel sounds, Soft, Negative: Tenderness Extremity Exam: Negative: Edema Vital Signs/I&O Vital Signs Date Time Temp Pulse Resp B/P Pulse Ox O2 Delivery O2 Flow Rate FiO2 03/30/16 04:00 97.2 65 18 116/66 99 Room Air I&O- Last 24 Hours up to 6 AM 03/30/16 06:00 Intake Total 2300 ml Output Total 800 ml Balance 1500 ml Laboratory Data Labs 24H Laboratory Tests 2 03/29/16 11:05: Creatine Kinase MB 1.8, Creatine Kinase MB Relative Index 2.46, Total Creatine Kinase 73, Troponin I 0.05# 03/30/16 05:31: Blood Urea Nitrogen 42H, Creatinine 1.03, Sodium Level 142, Potassium Level 4.0 , Chloride Level 110H, Carbon Dioxide Level 28, Calcium Level 7.8L, Aspartate Amino Transf (AST/SGOT) 149H, Alanine Aminotransferase (ALT/SGPT) 139H, Alkaline Phosphatase 129H, Total Bilirubin 1.1#H, Total Protein 6.0L, Albumin 2.4L, Albumin/Globulin Ratio 0.67L, Anion Gap 4L, White Blood Count 8.8, Red Blood Count 3.18L, Hemoglobin 9.4L, Hematocrit 29.7L, Mean Corpuscular Volume 93.2, Mean Corpuscular Hemoglobin 29.7, Mean Corpuscular Hemoglobin Concent 31.8L, Red Cell Distribution Width 14.2, Platelet Count 436, Neutrophils (%) ( Auto) 73.2H, Lymphocytes (%) (Auto) 15.9L, Monocytes (%) (Auto) 5.8H, Eosinophils (%) (Auto) 2.2, Basophils (%) (Auto) 0.7, Neutrophils # (Auto) 6.4, Lymphocytes # (Auto) 1.4L, Monocytes # (Auto) 0.5, Eosinophils # (Auto) 0.2, Basophils # (Auto) 0.1, Glomerular Filtration Rate > 60.0, Large Unclassified Cells # 0.2, Large Unclassified Cells % 2.2, Magnesium Level 2.4, Prothromb Time International Ratio 1.87, Prothrombin Time 21.6H CBC/BMP Laboratory Tests 03/29/16 14:59 Red Blood Count 2.83 L, Mean Corpuscular Volume 95.3, Mean Corpuscular Hemoglobin 30.1, Mean Corpuscular Hemoglobin Concent 31.6 L, Red Cell Distribution Width 12.6 03/30/16 00:32 Red Blood Count 3.03 L, Mean Corpuscular Volume 92.7, Mean Corpuscular Hemoglobin 30.6, Mean Corpuscular Hemoglobin Concent 33.0, Red Cell Distribution Width 14.0 03/30/16 05:31 Red Blood Count 3.18 L, Mean Corpuscular Volume 93.2, Mean Corpuscular Hemoglobin 29.7, Mean Corpuscular Hemoglobin Concent 31.8 L, Red Cell Distribution Width 14.2, Calcium Level 7.8 L, Aspartate Amino Transf (AST/SGOT) 149 H, Alanine Aminotransferase (ALT/SGPT) 139 H, Alkaline Phosphatase 129 H, Total Bilirubin 1.1 #H, Total Protein 6.0 L, Albumin 2.4 L, Neutrophils (%) ( Auto) 73.2 H, Lymphocytes (%) (Auto) 15.9 L, Monocytes (%) (Auto) 5.8 H, Eosinophils (%) (Auto) 2.2, Basophils (%) (Auto) 0.7, Neutrophils # (Auto) 6.4, Lymphocytes # (Auto) 1.4 L, Monocytes # (Auto) 0.5, Eosinophils # (Auto) 0.2, Basophils # (Auto) 0.1 Microbiology Microbiology 03/28/16 Blood Culture - Preliminary, Resulted No growth after 24 hours . All specim... 03/28/16 Stool Occult Blood (DIEGO) - Final, Complete 03/28/16 Urine Culture, Received Pending ZO MCDONALD PA-C Mar 30, 2016 08:19 VINICIO CASTREJON MD Mar 30, 2016 13:46
[2016-03-30] MEDS: MULTIVITAMINS/MINERALS THERAP 1 TAB PO SCH (09:31)
[2016-03-30] MEDS: PANTOPRAZOLE 40MG INJ (PROTONIX) (C9113) IV SCH ×2 (09:31→20:36)
[2016-03-30 12:50] LABS: MEAN CORPUSCULAR HEMOGLOBIN 31.7 pg (27.0-33.0); MEAN CORPUSCULAR HGB CONC 33.8 g/dl (32.0-36.5); MEAN CORPUSCULAR VOLUME 93.6 fl (80.0-96.0); RED CELL DISTRIBUTION WIDTH 14.1 % (11.5-14.5); WHITE BLOOD COUNT 10.5 K/mm3 (4.0-10.0)
[2016-03-30] MEDS: ACETAMINOPHEN TAB 650MG DOSE (2X325MG) PO PRN (16:13)
--- NOTE | 2016-03-30 18:25 | CR ---
DATE OF CONSULTATION: 03/30/2016 REASON FOR CONSULTATION: Gastrointestinal (GI) bleed. HISTORY OF PRESENT ILLNESS: The patient is an 82-year-old male who recently had a right knee arthroplasty done by Dr. Jalloh just over a week ago and was sent to [facility] for therapy. Postoperatively, he was also started on Coumadin for deep vein thrombosis (DVT) prophylaxis and on 03/28/2016, the patient woke up to have a bowel movement. After the bowel movement, he stood up, became very lightheaded and thinks that he may have lost consciousness. Denied any trauma, shortness of breath, nausea or vomiting, but he was brought to the emergency room for evaluation. In the emergency room (ER), he was found to have positive orthostatic hypotension. He was also given 2 units of blood. His baseline hemoglobin is typically around 12; when he came in he was down to 8. Therefore, he was given the 2 units of blood. Other than giving the blood, he had an ultrasound done due to elevated liver function tests (LFTs), which incidentally showed that he has a large 8.1 cm infrarenal abdominal aortic aneurysm. I was called for consult both to help with management of this abdominal aortic aneurysm as well as his possible GI bleeding. At this time, the patient is stable. He denies any nausea or vomiting. He is not sure if there is any visible blood in his stool or not, he has not looked. He denies any abdominal pain. No epigastric pains. No acid reflux or heartburn. No problems with blood in the stool or GI bleeding in the past that he is aware of. Last colonoscopy - he is unsure when that was done. PAST MEDICAL HISTORY: Coronary artery bypass graft (CABG). Hypothyroidism. Osteoarthritis. PAST SURGICAL HISTORY CABG. Right knee surgery. FAMILY HISTORY: Noncontributory. ALLERGIES: None. HOME MEDICATIONS: Please see medical record (med rec). REVIEW OF SYSTEMS: Pertinent positives and negatives as stated in the history of the present illness. SOCIAL HISTORY: Denies drug, alcohol, or tobacco abuse. PHYSICAL EXAMINATION: General: Patient is alert and oriented times three, in no acute distress. Vital signs: Temperature 97.4, pulse 75, respirations 22, blood pressure 126/80, pulse oximetry 100% on room air. HEENT: Pupils equal, round and react to light accommodation. Heart: S1, S2 regular rate and rhythm. Lungs: Clear to auscultation bilaterally. Abdomen is soft, nontender, nondistended. Bowel sounds positive. Extremities: No clubbing, cyanosis or edema. LABORATORY DATA: White count was 10.5, hemoglobin is 10.2 today, potassium 4, total bilirubin 1.1, AST 149, ALT 139, alkaline phosphatase 129. IMAGING STUDIES: CT abdomen and pelvis shows that there is a 7.9 x 8 cm infrarenal abdominal aortic aneurysm and bilateral common iliac artery aneurysms measuring 3.6 cm on the right and 2.8 cm on the left. ASSESSMENT AND PLAN: The patient is an 89-year-old male with a history of recent right knee surgery, started on Coumadin postoperatively for deep vein thrombosis prophylaxis, presents with hypotension and acute blood loss anemia, likely secondary to upper versus lower gastrointestinal bleed. At this time, due to the large abdominal aortic aneurysm, I would avoid doing any type of colonoscopy. An upper endoscopy could be warranted; however, the source of bleeding from an upper bleed would most likely be from mild gastritis, duodenitis or even peptic ulcer disease, all of which can be treated empirically with Carafate and proton pump inhibitors twice a day. If the patient continues to show signs of bleeding, I have already discussed it with anesthesia and they are willing to allow me to do an upper endoscopy. However, we will avoid lower endoscopy at this time. As far as the abdominal aortic aneurysm is concerned, he would need to be evaluated by vascular surgery to see if he is a candidate for an endovascular repair versus an open repair. Both surgeries have their own risks and benefits. However, to be a candidate for an endovascular aneurysm repair (EVAR), they would have to do a CT with IV contrast and do 3D reconstructions to determine the full extent of the anatomy. All of this can be done down state; however, I do not feel that this is something emergent that he needs to be transferred there from hospital to hospital. He likely can finish up his rehabilitation here and then go down and see them electively. Once his GI bleed is controlled, we can restart him on his Coumadin and see if he tolerates it. If not, then, he may be a candidate for an inferior vena cava (IVC) filter; however, that would be depending on whether or not orthopedics thinks that he will need to be on this anticoagulation for a long period of time or not. Thank you for the consult. I will continue to follow the patient with you. Tentatively, he is already scheduled for an esophagogastroduodenoscopy (EGD) tomorrow afternoon and that can always be cancelled if necessary.
[2016-03-30 18:40] LABS: MEAN CORPUSCULAR HEMOGLOBIN 30.5 pg (27.0-33.0); MEAN CORPUSCULAR HGB CONC 32.2 g/dl (32.0-36.5); MEAN CORPUSCULAR VOLUME 94.6 fl (80.0-96.0); RED CELL DISTRIBUTION WIDTH 14.1 % (11.5-14.5); WHITE BLOOD COUNT 8.9 K/mm3 (4.0-10.0)
[2016-03-30] MEDS: PRAVASTATIN 20 MG TAB PO SCH (20:36)
--- NOTE | 2016-03-30 22:27 | EDDOCDS ---
Physician Documentation [facility] Name: Larry Luna Age: 89 yrs Sex: Male : 1925 Arrival Date: 03/28/2016 Time: 13:04 Bed 15 Private MD: Cheng Morris MD Disposition: 03/28/16 15:33 Hospitalization ordered by Saleem Buitrago for Inpatient Admission. Preliminary diagnosis are Syncope and collapse, Abnormal results of cardiovascular function studies - elevate troponin. - Bed requested for PCU. - Status is Inpatient Admission. tm5 - Condition is Stable. - Problem is new. - Symptoms are unchanged. Historical: - Allergies: no known allergies; - Home Meds: 1. acetaminophen 500 mg Oral tab 2 tabs three times a day 2. levothyroxine 200 mcg Oral tab once daily 3. Calcium + Vitamin D 600 mg calcium- 200 unit Oral tab daily 4. multivitamin Oral cap daily 5. glucosamine-chondroitin 250-200 mg oral tab daily 6. Pravachol 80 mg Oral tab once daily 7. PreserVision AREDS oral oral twice a day 8. Coumadin 1 mg Oral tab once daily - PMHx: LA; Hypercholesterolemia; Hypothyroidism; Hypertension; - PSHx: CABG; total right knee (February 2016); - Social history: Smoking status: other No barriers to communication noted. - Family history: Not pertinent. - : The pt / caregiver states he / she is on anticoagulants: coumadin. Home medication list is obtained from the facility APR. - Exposure Risk Screening:: None identified. Vital Signs: 03/28 13:12 BP 115 / 72; Pulse 79; Resp 18; Temp 98.8(O); Pulse Ox 97% on R/A; Weight 89.81 kg / ct3 198 lbs (R); Height 5 ft. 11 in. (180.34 cm) (R); Pain 0/10; 14:12 BP 84 / 64 RA Supine (auto/reg); Pulse 72 RA; lr2 14:12 BP 111 / 75 RA Sitting (auto/reg); Pulse 80; lr2 14:12 BP 80 / 56 RA Standing (auto/reg); Pulse 90; lr2 14:41 BP 106 / 68 (auto/); mk4 14:41 Pulse 80 MON; Pulse Ox 95% ; mk4 15:11 BP 101 / 69 (auto/); mk4 15:11 Pulse 80 MON; Pulse Ox 96% ; mk4 15:41 BP 108 / 79 (auto/); mk4 15:41 Pulse 82 MON; Pulse Ox 96% ; mk4 16:11 BP 104 / 64 (auto/); mk4 16:11 Pulse 84 MON; Pulse Ox 96% ; mk4 16:41 BP 106 / 71 (auto/); mk4 16:41 Pulse 82 MON; Pulse Ox 93% ; mk4 17:11 BP 113 / 69 (auto/); mk4 17:11 Pulse 80 MON; Pulse Ox 95% ; mk4 17:41 BP 120 / 79 (auto/); mk4 17:41 Pulse 78 MON; mk4 18:11 BP 111 / 70 (auto/); mk4 18:11 Pulse 78 MON; mk4 18:41 BP 123 / 82 (auto/); mk4 18:41 Pulse 98 MON; mk4 19:11 BP 110 / 84 (auto/); mk4 19:11 Pulse 88 MON; mk4 19:41 BP 101 / 66 (auto/); tm5 19:41 Pulse 86 MON; Pulse Ox 95% ; tm5 20:11 BP 120 / 75 (auto/); tm5 20:11 Pulse 82 MON; Pulse Ox 93% ; tm5 20:41 BP 96 / 65 (auto/); tm5 20:41 Pulse 84 MON; Pulse Ox 96% ; tm5 13:12 Body Mass Index 27.62 (89.81 kg, 180.34 cm) ct3 MDM: 13:13 ECG WITH READING ER PHYS+CARDIAG ordered. EDMS 13:32 Social Staff Worker/Pulse Ox/q 30 min VS ordered. br1 13:32 IV Saline Lock ordered. br1 13:32 Rhythm Strip to chart ordered. br1 13:32 Undress patient appropriately for examination ordered. br1 13:32 Basic Metabolic Profile Ordered. EDMS 13:32 CBC with Diff Ordered. EDMS 13:32 Cardiac Injury Profile Ordered. EDMS 13:32 Troponin Ordered. EDMS 13:37 Orthostatic VS ordered. br1 14:10 PT/INR Ordered. EDMS 14:13 Chest, 1 View Ordered. EDMS 14:13 CT Head Without Contrast Ordered. EDMS 14:38 NS 0.9% 500 ml IV at bolus once ordered. ke 14:38 NS 0.9% 1000 ml IV at 250 mL/hr continuous; after bolus ordered. ke 14:38 Basic Metabolic Profile Reviewed. ke 14:38 CBC with Diff Reviewed. ke 14:38 Troponin Reviewed. ke 14:38 PT/INR Reviewed. ke 14:38 Cardiac Injury Profile Reviewed. ke 14:38 THYROID PROFILE Reviewed. ke 14:48 BED REQUEST+ADM ordered. EDMS 15:05 CBC with Diff Reviewed. ke 15:32 Financial registration complete. gjb 15:35 PCR was scanned into [employer] and attached to record. gb 15:43 [facility] Payment Agreement was scanned into [employer] and attached to record. gjb 16:12 Admission / Observation Status ordered. EDMS 16:12 2 GRAM SODIUM DIET ordered. EDMS 16:13 CARDIAC INJURY PROFILE Ordered. EDMS 16:13 TROPONIN Ordered. EDMS 16:13 URINALYSIS Ordered. EDMS 16:13 URINE CULTURE Ordered. EDMS 16:13 BLOOD CULTURES Ordered. EDMS 16:14 OCCULT BLOOD STOOL SPECIMEN Ordered. EDMS 16:15 TYPE & SCREEN Ordered. EDMS 16:19 RETICULOCYTE COUNT Ordered. EDMS 16:19 FERRITIN Ordered. EDMS 16:19 TOTAL IRON BINDING CAPACIT Ordered. EDMS 19:25 NS 0.9% 1000 ml IV at 80 mL/hr continuous ordered. mk4 19:32 CARDIAC INJURY PROFILE Ordered. EDMS 19:32 CARDIAC INJURY PROFILE Ordered. EDMS 19:32 TROPONIN Ordered. EDMS 19:32 TROPONIN Ordered. EDMS 19:32 CBC WITH DIFFERENTIAL Ordered. EDMS 19:32 COMPLETE COMPHRENSIVE METABOLI Ordered. EDMS 19:32 MAGNESIUM LEVEL Ordered. EDMS 20:02 PROTHROMBIN TIME PROFILE\E\INR Ordered. EDMS 03/29 12:51 T-Sheet-- Draft Copy was scanned into [employer] and attached to record. gb 12:52 ECG/EKG was scanned into [employer] and attached to record. gb Administered Medications: 03/28 14:57 Drug: NS 0.9% 500 ml [sodium chloride 0.9 % intravenous solution] Route: IV; Rate: mk4 bolus; Site: left antecubital; 17:07 Drug: NS 0.9% 1000 ml [sodium chloride 0.9 % intravenous solution] Route: IV; Rate: 250 mk4 mL/hr; Site: left antecubital; 19:25 Drug: NS 0.9% 1000 ml [sodium chloride 0.9 % intravenous solution] Route: IV; Rate: 80 mk4 mL/hr; Site: left antecubital; 21:11 Follow up: IV Status: Infusion continued upon admit tm5 Signatures: Dispatcher [employer] ED FranciscoeronabhijitKeely, Reg Reg gb Aurelio Kenyon, Dino Maharaj MD MD br1 Tayla Maya RN RN mk4 Kim Lozano [facility] Marie Gomez RN RN lmg Bozena Cao RN RN tm5 The chart was reviewed and I authenticate all verbal orders and agree with the evaluation and treatment provided.Corrections: (The following items were deleted from the chart) 14:16 14:10 THYROID PROFILE+LAB ordered. EDMS EDMS 16:17 16:13 IRON (FE) ordered. EDMS EDMS 16:17 16:13 TOTAL IRON BINDING CAPACIT ordered. EDMS EDMS 16:17 16:13 FERRITIN ordered. EDMS EDMS 16:18 16:13 RETICULOCYTE COUNT ordered. EDMS EDMS Attachments: 15:43 [facility] [place] Payment Agreement [facility] 03/29 12:51 T-Sheet-- Draft Copy gb 12:52 ECG/EKG gb Chart Complete MTDD
--- NOTE | 2016-03-30 22:27 | EDDOCDS ---
Nurse's Notes [facility] Name: Larry Luna Age: 89 yrs Sex: Male : 1925 Arrival Date: 03/28/2016 Time: 13:04 Bed 15 Private MD: Cheng Morris MD Diagnosis: Syncope and collapse;Abnormal results of cardiovascular function studies-elevate troponin Presentation: 03/28 13:09 Presenting complaint: Patient states: pt is [facility] last mk4 week , passed out this am after having a bm and 3 other times. Suicide/Homicide risk assessment- the patient denies having any suicidal and/or homicidal ideations and does not present with any other emotional, behavioral or mental health complaints. 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 Transition of care: patient was not received from another setting of care. 13:09 Acuity: EILEEN Level 2 4 13:09 Method Of Arrival: Ambulance [facility] 13:31 Adult Sepsis Screening: The patient does not have new or worsening altered mentation. mk4 Patient's respiratory rate is less than 22. Systolic blood pressure is greater than 100. Patient has a qSOFA score of 1- Negative Sepsis Screen. Triage Assessment: 13:31 General: Appears in no apparent distress, comfortable, Behavior is cooperative. Pain: mk4 Denies pain. Respiratory: Airway is patent Respiratory effort is even, unlabored, Respiratory pattern is regular. Historical: - Allergies: no known allergies; - Home Meds: 1. acetaminophen 500 mg Oral tab 2 tabs three times a day 2. levothyroxine 200 mcg Oral tab once daily 3. Calcium + Vitamin D 600 mg calcium- 200 unit Oral tab daily 4. multivitamin Oral cap daily 5. glucosamine-chondroitin 250-200 mg oral tab daily 6. Pravachol 80 mg Oral tab once daily 7. PreserVision AREDS oral oral twice a day 8. 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 - Family history: Not pertinent. - : The pt / caregiver states he / she is on anticoagulants: coumadin. Home medication list is obtained from the facility APR. - Exposure Risk Screening:: None identified. Screenin:33 Screening information is obtained from the patient. Fall risk: At risk due to age, gait mk4 disturbance, immobility, prior history of falls, The following interventions are performed due to a positive Fall Risk Screen: Fall Risk is added to Special Handling on the patient Summary Screen. A Fall Risk Bracelet was applied to the patient. Side Rails are placed in the up position. A Call Styles is given with instruction to call for help when getting out of bed. Fall Alert bracelet is placed on the patient. Assistance ADL's: Requires assistance with meal preparation, this assistance is provided by residence staff, bathing, assistance is provided by residence staff, dressing, assistance is provided by residence staff, toileting, assistance is provided by ambulation, assistance is provided by residence staff, housework, assistance is provided by residence staff, medication administration, assistance is provided by residence staff. Abuse/DV Screen: The patient / caregiver reports he/she is: not in a situation that causes fear, pain or injury. Nutritional screening: No deficits noted. Advance Directives: There is an active DNR order and the pt has a copy here at this time. home support is adequate. Assessment: 13:15 General: Appears in no apparent distress, Behavior is cooperative, pleasant. mk4 Neurological: Denies blurred vision dizziness, headache. Respiratory: Airway is patent Respiratory effort is even, unlabored, Respiratory pattern is regular. Derm: Skin is intact, is healthy with good turgor, Skin is pink, warm & dry. 14:20 General: Appears in no apparent distress, Behavior is cooperative. Cardiovascular: mk4 Chest pain is denied. Respiratory: Airway is patent Respiratory effort is even, unlabored, Respiratory pattern is regular, Breath sounds are clear bilaterally. 15:59 General: Appears in no apparent distress, hospitalist in examining patient. General: mk4 family at bedside. Neurological: Level of Consciousness is awake, alert, Oriented to person, place, time. 17:09 General: Appears in no apparent distress, comfortable, Behavior is cooperative. mk4 Neurological: Level of Consciousness is awake, alert, Oriented to person, place, time. Neurological: Level of Consciousness is awake, alert, Oriented to person, place, time. Respiratory: Airway is patent Respiratory effort is even, unlabored, Respiratory pattern is regular. 18:00 General: Appears in no apparent distress, comfortable, Behavior is cooperative, pt mk4 denies any c/o dry dressing intact to right knee . Musculoskeletal: Circulation, motion, and sensation intact Capillary refill < 3 seconds in right toes. 19:14 General: Appears in no apparent distress, Behavior is cooperative. Neurological: Level mk4 of Consciousness is awake, alert, Oriented to person, place, time. Respiratory: Airway is patent Respiratory effort is even, unlabored, Respiratory pattern is regular. 19:23 General: Appears in no apparent distress, comfortable. mk4 20:29 General: attempted to call report to PCU, care RN not available at this time, awaiting tm5 return call back . 21:09 General: PCU called & are ready for pt's admission to the floor . tm5 Vital Signs: 13:12 BP 115 / 72; Pulse 79; Resp 18; Temp 98.8(O); Pulse Ox 97% on R/A; Weight 89.81 kg (R); ct3 Height 5 ft. 11 in. (180.34 cm) (R); Pain 0/10; 14:12 BP 84 / 64 RA Supine (auto/reg); Pulse 72 RA; lr2 14:12 BP 111 / 75 RA Sitting (auto/reg); Pulse 80; lr2 14:12 BP 80 / 56 RA Standing (auto/reg); Pulse 90; lr2 14:41 BP 106 / 68 (auto/); mk4 14:41 Pulse 80 MON; Pulse Ox 95% ; mk4 15:11 BP 101 / 69 (auto/); mk4 15:11 Pulse 80 MON; Pulse Ox 96% ; mk4 15:41 BP 108 / 79 (auto/); mk4 15:41 Pulse 82 MON; Pulse Ox 96% ; mk4 16:11 BP 104 / 64 (auto/); mk4 16:11 Pulse 84 MON; Pulse Ox 96% ; mk4 16:41 BP 106 / 71 (auto/); mk4 16:41 Pulse 82 MON; Pulse Ox 93% ; mk4 17:11 BP 113 / 69 (auto/); mk4 17:11 Pulse 80 MON; Pulse Ox 95% ; mk4 17:41 BP 120 / 79 (auto/); mk4 17:41 Pulse 78 MON; mk4 18:11 BP 111 / 70 (auto/); mk4 18:11 Pulse 78 MON; mk4 18:41 BP 123 / 82 (auto/); mk4 18:41 Pulse 98 MON; mk4 19:11 BP 110 / 84 (auto/); mk4 19:11 Pulse 88 MON; mk4 19:41 BP 101 / 66 (auto/); tm5 19:41 Pulse 86 MON; Pulse Ox 95% ; tm5 20:11 BP 120 / 75 (auto/); tm5 20:11 Pulse 82 MON; Pulse Ox 93% ; tm5 20:41 BP 96 / 65 (auto/); tm5 20:41 Pulse 84 MON; Pulse Ox 96% ; tm5 13:12 Body Mass Index 27.62 (89.81 kg, 180.34 cm) ct3 Vitals: 13:12 Log In Time N/A - ambulance arrival. ct3 ED Course: 13:06 Patient visited by Yolanda Clemente, Tattoo Designer. lbd 13:06 Patient moved to Waiting lbd 13:07 Cheng Morris is Private Physician. lbd 13:08 Patient moved to 15 lbd 13:10 Triage Initiated mk4 13:12 Patient has correct armband on for positive identification. Placed in gown. Bed in low ct3 position. Call light in reach. Side rails up X2. quality assurance monitor on. Pulse ox on. NIBP on. 13:13 Patient visited by Jennifer Del Castillo PCA. ct3 13:15 No procedures done that require assistance. mk4 13:17 EKG done. (by ED staff). Reviewed by Dino Lama MD. ct3 13:20 Patient visited by Jennifer Del Castillo PCA. ct3 13:33 The patient / caregiver is instructed regarding the plan of care and ED course. mk4 13:33 Inserted saline lock: 20 gauge in left antecubital area and blood collected. mk4 13:37 Basic Metabolic Profile Sent. mk4 13:38 CBC with Diff Sent. mk4 13:38 Cardiac Injury Profile Sent. mk4 13:38 Troponin Sent. mk4 13:52 Patient visited by Tayla Maya RN. mk4 14:07 [facility] ke 14:07 Patient visited by Aurelio Kenyon FNP. ke 14:07 Patient visited by Aurelio Kenyon FNP. ke 14:15 Patient visited by Leandra Mcghee. lr2 14:35 Patient visited by Aurelio Kenyon FNP. ke 15:05 Patient visited by Aurelio Kenyon FNP. ke 15:17 CT Head Without Contrast Returned. EDMS 15:31 Saleem Buitrago MD is Hospitalizing Provider. ke 15:35 PCR was scanned into [employer] and attached to record. gb 15:43 [facility] [place] into [employer] and attached to record. gjb 16:14 Chest, 1 View Returned. EDMS 19:11 Patient visited by Bozena Cao,AGUSTINA. tm5 19:11 Patient visited by Bozena Cao RN. tm5 19:11 Awaiting awaiting transfer to assigned bed . tm5 19:11 Report received from Tayla BERRIOS, assumed care of pt at this time. tm5 20:29 Patient visited by Bozena Cao RN. tm5 21:09 Patient visited by Bozena Cao RN. tm5 03/29 12:51 T-Sheet-- Draft Copy was scanned into [employer] and attached to record. gb 12:52 ECG/EKG was scanned into [employer] and attached to record. gb Administered Medications: 03/28 14:57 Drug: NS 0.9% 500 ml [sodium chloride 0.9 % intravenous solution] Route: IV; Rate: mk4 bolus; Site: left antecubital; 17:07 Drug: NS 0.9% 1000 ml [sodium chloride 0.9 % intravenous solution] Route: IV; Rate: 250 mk4 mL/hr; Site: left antecubital; 19:25 Drug: NS 0.9% 1000 ml [sodium chloride 0.9 % intravenous solution] Route: IV; Rate: 80 mk4 mL/hr; Site: left antecubital; 21:11 Follow up: IV Status: Infusion continued upon admit tm5 Intake: 17:26 IV: 500.00ml (NS); Total: 500.00ml. mk4 Order Results: Lab Order: Basic Metabolic Profile; SPEC'M 03/28/16 13:27 Test: GLUCOSE, FASTING; Value: 153; Range: 83-110; Abnormal: Above high normal; Units: MG/DL; Status: F Test: BLOOD UREA NITROGEN; Value: 69; Range: 7-18; Abnormal: Above high normal; Units: MG/DL; Status: F Test: CREATININE FOR GFR; Value: 1.16; Range: 0.70-1.30; Units: MG/DL; Status: F Test: GLOMERULAR FILTRATION RATE; Value: > 60.0; Range: >35; Status: F Test: SODIUM LEVEL; Value: 140; Range: 136-145; Units: MEQ/L; Status: F Test: POTASSIUM SERUM; Value: 4.5; Range: 3.5-5.1; Units: MEQ/L; Status: F Test: CHLORIDE LEVEL; Value: 104; Range: 98-107; Units: MEQ/L; Status: F Test: CARBON DIOXIDE LEVEL; Value: 27; Range: 21-32; Units: MEQ/L; Status: F Test: ANION GAP; Value: 9; Range: 8-16; Units: MEQ/L; Status: F Test: CALCIUM LEVEL; Value: 8.3; Range: 8.8-10.2; Abnormal: Below low normal; Units: MG/DL; Status: F Test Note: ; Units are mL/min/1.73 m2 Chronic Kidney Disease Staging per NKF: Stage I & II GFR >=60 Normal to Mildly Decreased Stage III GFR 30-59 Moderately Decreased Stage IV GFR 15-29 Severely Decreased Stage V GFR <15 Very Little GFR Left ESRD GFR <15 on DRY JANITOR Lab Order: CBC with Diff; SPEC'M 03/28/16 13:27 Test: WHITE BLOOD COUNT; Value: 11.2; Range: 4.0-10.0; Abnormal: Above high normal; Units: K/mm3; Status: F Test: RED BLOOD COUNT; Value: 3.02; Range: 4.30-6.10; Abnormal: Below low normal; Units: M/mm3; Status: F Test: HEMOGLOBIN; Value: 9.4; Range: 14.0-18.0; Abnormal: Below low normal; Units: g/dl; Status: F Test: HEMATOCRIT; Value: 29.3; Range: 42.0-52.0; Abnormal: Below low normal; Units: %; Status: F Test: MEAN CORPUSCULAR VOLUME; Value: 97.0; Range: 80.0-96.0; Abnormal: Above high normal; Units: fl; Status: F Test: MEAN CORPUSCULAR HEMOGLOBIN; Value: 31.0; Range: 27.0-33.0; Units: pg; Status: F Test: MEAN CORPUSCULAR HGB CONC; Value: 32.0; Range: 32.0-36.5; Units: g/dl; Status: F Test: RED CELL DISTRIBUTION WIDTH; Value: 12.5; Range: 11.5-14.5; Units: %; Status: F Test: PLATELET COUNT, AUTOMATED; Value: 400; Range: 150-450; Units: k/mm3; Status: F Test: NEUTROPHILS %; Value: 89.7; Range: 36.0-66.0; Abnormal: Above high normal; Units: %; Status: F Test: LYMPH %; Value: 5.5; Range: 24.0-44.0; Abnormal: Below low normal; Units: %; Status: F Test: MONO %; Value: 3.3; Range: 0.0-5.0; Units: %; Status: F Test: EOS %; Value: 0.1; Range: 0.0-3.0; Units: %; Status: F Test: BASO %; Value: 0.4; Range: 0.0-1.0; Units: %; Status: F Test: LARGE UNSTAINED CELL %; Value: 1.0; Range: 0.0-4.0; Units: %; Status: F Test: NEUTROPHILS #; Value: 10.0; Range: 1.8-7.7; Abnormal: Above high normal; Units: K/mm3; Status: F Test: LYMPH #; Value: 0.6; Range: 1.5-4.5; Abnormal: Below low normal; Units: K/mm3; Status: F Test: MONO #; Value: 0.4; Range: 0.0-0.8; Units: K/mm3; Status: F Test: EOS #; Value: 0.0; Range: 0.0-0.50; Units: K/mm3; Status: F Test: BASO #; Value: 0.0; Range: 0.0-0.2; Units: K/mm3; Status: F Test: LARGE UNSTAINED CELL #; Value: 0.1; Range: 0.0-0.4; Units: K/mm3; Status: F Lab Order: Cardiac Injury Profile; SPEC'M 03/28/16 13:27 Test: CPK CREATINE PHOSPHOKINASE; Value: 63; Range: 39-308; Units: U/L; Status: F Test: CK-MB VALUE MASS; Value: 2.1; Range: 0.0-3.6; Units: NG/ML; Status: F Test: MB/CK RELATIVE INDEX; Value: 3.33; Range: < OR =4; Status: F Test Note: ; DIAGNOSIS CRITERIA MMB ng/ml Relative Index (RI) NON-AMI < or = 5 N/A ARGUETA ZONE > 5 < or = 4 AMI > 5 > 4 Lab Order: Troponin; [facility] 03/28/16 13:27 Test: TROPONIN I; Value: 0.19; Range: < 0.10; Abnormal: Above high normal; Units: NG/ML; Status: F Test Note: ; Troponin I Reference Interval for tokia.lt LOCI: 99th Percentile= 0.00-0.045 ng/ml Risk Stratification: <= 0.10 ng/ml Decreased Risk for Adverse Clinical Events. 0.10-1.50 ng/ml Increased Risk for Adverse Clinical Events. Evaluation of additional criterion and/or repeat testing in 2-6 hours is suggested to rule out myocardial damage. >= 1.50 ng/ml Indicative of Myocardial Injury. Lab Order: PT/INR; [facility] 03/28/16 13:27 Test: PROTHROMBIN TIME; Value: 22.6; Range: 12.3-14.5; Abnormal: Above high normal; Units: SECONDS; Status: F Test: INR; Value: 1.98; Status: F Test Note: ; THERAPUTIC HUMAN INR VALUES INDICATIONS NORMAL RANGES PROPHYLAXIS/TREATMENT OF: VENOUS THROMBOSIS 2.0-3.0 PULMONARY EMBOLISM 2.0-3.0 PREVENTION OF SYSTEMIC EMBOLISM FROM: TISSUE HEART VALVES 2.0-3.0 ACUTE MYOCARDIAL INFARCTION 2.0-3.0 VALVULAR HEART DISEASE 2.0-3.0 ATRIAL FIBRILLATION 2.0-3.0 MECHANICAL VALVES(HIGH RISK) 2.5-3.5 RECURRENT MYOCARDIAL INFARCTION 2.5-3.5 Lab Order: THYROID PROFILE; [facility] 03/28/16 13:27 Test: T UPTAKE; Value: 38; Range: 33-40; Units: %; Status: F Test: THYROXINE (T4); Value: 8.6; Range: 4.5-12.0; Units: UG/DL; Status: F Test: FREE THYROXINE INDEX; Value: 3.3; Range: 1.4-3.8; Units: %; Status: F Test: THYROID STIMULATING HORMONE; Value: 1.070; Range: 0.358-3.740; Units: uIU/ML; Status: F Lab Order: CARDIAC INJURY PROFILE; [facility] 03/28/16 19:09 Test: CPK CREATINE PHOSPHOKINASE; Value: 63; Range: 39-308; Units: U/L; Status: F Test: CK-MB VALUE MASS; Value: 2.1; Range: 0.0-3.6; Units: NG/ML; Status: F Test: MB/CK RELATIVE INDEX; Value: 3.33; Range: < OR =4; Status: F Test Note: ; DIAGNOSIS CRITERIA MMB ng/ml Relative Index (RI) NON-AMI < or = 5 N/A ARGUETA ZONE > 5 < or = 4 AMI > 5 > 4 Lab Order: TROPONIN; [facility] 03/28/16 19:09 Test: TROPONIN I; Value: 0.14; Range: < 0.10; Abnormal: High; Units: NG/ML; Status: F Test Note: ; Troponin I Reference Interval for tokia.lt LOCI: 99th Percentile= 0.00-0.045 ng/ml Risk Stratification: <= 0.10 ng/ml Decreased Risk for Adverse Clinical Events. 0.10-1.50 ng/ml Increased Risk for Adverse Clinical Events. Evaluation of additional criterion and/or repeat testing in 2-6 hours is suggested to rule out myocardial damage. >= 1.50 ng/ml Indicative of Myocardial Injury. Lab Order: TYPE & SCREEN; [facility] 03/28/16 14:27 Test: BLOOD TYPE; Value: O POS; Status: F Test: AB SCREEN (INDIRECT STACY)GEL; Value: NEGATIVE; Status: F Lab Order: RETICULOCYTE COUNT; [facility] 03/28/16 13:27 Test: RETICULOCYTE % [id number]; Value: 3.00; Range: 0.5-1.5; Abnormal: Above high normal; Units: %; Status: F Test: RETICULOCYTE ABSOLUTE [id number]; Value: 94; Range: 17-77; Abnormal: Above high normal; Units: x10(9)/L; Status: F Test: RETIC HEMOGLOBIN CONTENT CHr; Value: 28.1; Range: 24-36; Units: PG; Status: F Lab Order: FERRITIN; SPEC'M 03/28/16 13:27 Test: FERRITIN; Value: 143; Range: 26-388; Units: NG/ML; Status: F Lab Order: TOTAL IRON BINDING CAPACIT; SPEC'M 03/28/16 13:27 Test: IRON (FE); Value: 53; Range: 65-175; Abnormal: Below low normal; Units: UG/DL; Status: F Test: TOTAL IRON BINDING CAPACITY; Value: 227; Range: 250-450; Abnormal: Below low normal; Units: UG/DL; Status: F Test: PERCENT SATURATION; Value: 23.3; Range: 19.7-37.4; Units: %; Status: F Radiology Order: Chest, 1 View Test: Chest, 1 View REASON FOR EXAMINATION: Syncope; AP PORTABLE CHEST: 03/28/2016; ; COMPARISON: 03/24/2016, 03/08/2016.; ; CLINICAL HISTORY: Syncope.; ; Two-view show the lungs well inflated. There is interstitial fibrotic change and; hyperinflation with linear fibrotic changes in the left lateral base as before.; There is no definite infiltrate or effusion. Heart size normal for portable; technique. There is no rimma edema, dense consolidation or definite effusion.; Sternotomy wires and mediastinal clips are again seen unchanged. The aorta is; mildly tortuous without aneurysm. Airway intact. Slight dextroconvex curvature; upper thoracic spine degenerative changes of the spine and shoulders.; ; IMPRESSION:; ; 1. Some hyperinflation with COPD. Linear fibrotic changes in left base and; prior CABG. All findings stable. Nothing acute.; ; ; Signed by; Roberto Salamanca MD 03/28/2016 06:00 P; Radiology Order: CT Head Without Contrast Test: CT Head Without Contrast REASON FOR EXAMINATION: Syncope; CT brain without contrast: 03/28/2016.; ; Clinical history: Syncope.; ; Technique: Noncontrast images through the brain were provided. Soft tissue and; bone windows for each slice level reviewed.; ; No prior study.; ; Findings: Ventricles midline, symmetric and their size proportionate to the; diffuse cerebral atrophy. Atrophy greatest in the temporal and frontal lobes but; present throughout. The argueta white junction differentiation is maintained.; There is periventricular and deep central white matter hypodensity suggesting; chronic small vessel ischemic changes of aging. No vascular territory infarct,; hemorrhage, mass or mass effect in the brain. Brainstem grossly intact; cerebellum shows atrophy bilaterally without mass. Basal cisterns intact.; Mastoids and visualized sinuses were clear. The calvarium and skull base are; without fracture or focal lesion. There were calcifications in the carotid; siphons.; ; Impression:; ; 1. Moderately severe diffuse atrophy with ventriculomegaly in proportion. No; intracranial hemorrhage, mass, acute infarct or edema. Calcified carotid; siphons.; ; 2. No fracture of the skull base or calvarium with the visible sinuses and; mastoids clear. Nothing acute.; ; ; Signed by; Roberto Salamanca MD 03/28/2016 05:59 P; Outcome: 15:33 Decision to Hospitalize by Provider. ke 19:41 Discharge Assessment: Patient awake, alert and oriented x 3. No cognitive and/or tm5 functional deficits noted. Patient verbalized understanding of disposition instructions. patient administered narcotics - no. The following High Risk Discharge criteria are identified: None. Admitted to PCU accompanied by nurse, accompanied by tech, via stretcher, with oxygen, on monitor, with chart. Condition: good Condition: stable Condition: improved. CT Study completed. Property :Personal belongings accompany Pt. 21:26 Patient left the ED. tm5 Signatures: Dispatcher [employer] EDMS Yolanda Clemente, Tattoo Designer Unit lbd Keely Duqeu, Reg Reg gb Aurelio Kenyon, [employer] ke Jennifer Del Castillo, DELIVERY CONSULTANT DELIVERY CONSULTANT ct3 Tayla Maya RN RN mk4 Kim Lozano Tonya,RN RN tm5 Leandra Mcghee2 Corrections: (The following items were deleted from the chart) 16:02 16:01 Pain: Denies pain. mk4 mk4 16:02 14:20 Respiratory: Airway is patent Respiratory effort is even, unlabored, Respiratory mk4 pattern is regular, mk4 Chart Complete MTDD
--- NOTE | 2016-03-30 22:27 | EDDOCDS ---
Physician Documentation [facility] Name: Larry Luna Age: 89 yrs Sex: Male : 1925 Arrival Date: 03/28/2016 Time: 13:04 Bed 15 Private MD: Cheng Morris MD Disposition: 03/28/16 15:33 Hospitalization ordered by Saleem Buitrago for Inpatient Admission. Preliminary diagnosis are Syncope and collapse, Abnormal results of cardiovascular function studies - elevate troponin. - Bed requested for PCU. - Status is Inpatient Admission. tm5 - Condition is Stable. - Problem is new. - Symptoms are unchanged. Historical: - Allergies: no known allergies; - Home Meds: 1. acetaminophen 500 mg Oral tab 2 tabs three times a day 2. levothyroxine 200 mcg Oral tab once daily 3. Calcium + Vitamin D 600 mg calcium- 200 unit Oral tab daily 4. multivitamin Oral cap daily 5. glucosamine-chondroitin 250-200 mg oral tab daily 6. Pravachol 80 mg Oral tab once daily 7. PreserVision AREDS oral oral twice a day 8. Coumadin 1 mg Oral tab once daily - PMHx: [place]; Hypercholesterolemia; Hypothyroidism; Hypertension; - PSHx: CABG; total right knee (February 2016); - Social history: Smoking status: other No barriers to communication noted. - Family history: Not pertinent. - : The pt / caregiver states he / she is on anticoagulants: coumadin. Home medication list is obtained from the facility APR. - Exposure Risk Screening:: None identified. Vital Signs: 03/28 13:12 BP 115 / 72; Pulse 79; Resp 18; Temp 98.8(O); Pulse Ox 97% on R/A; Weight 89.81 kg / ct3 198 lbs (R); Height 5 ft. 11 in. (180.34 cm) (R); Pain 0/10; 14:12 BP 84 / 64 RA Supine (auto/reg); Pulse 72 RA; lr2 14:12 BP 111 / 75 RA Sitting (auto/reg); Pulse 80; lr2 14:12 BP 80 / 56 RA Standing (auto/reg); Pulse 90; lr2 14:41 BP 106 / 68 (auto/); mk4 14:41 Pulse 80 MON; Pulse Ox 95% ; mk4 15:11 BP 101 / 69 (auto/); mk4 15:11 Pulse 80 MON; Pulse Ox 96% ; mk4 15:41 BP 108 / 79 (auto/); mk4 15:41 Pulse 82 MON; Pulse Ox 96% ; mk4 16:11 BP 104 / 64 (auto/); mk4 16:11 Pulse 84 MON; Pulse Ox 96% ; mk4 16:41 BP 106 / 71 (auto/); mk4 16:41 Pulse 82 MON; Pulse Ox 93% ; mk4 17:11 BP 113 / 69 (auto/); mk4 17:11 Pulse 80 MON; Pulse Ox 95% ; mk4 17:41 BP 120 / 79 (auto/); mk4 17:41 Pulse 78 MON; mk4 18:11 BP 111 / 70 (auto/); mk4 18:11 Pulse 78 MON; mk4 18:41 BP 123 / 82 (auto/); mk4 18:41 Pulse 98 MON; mk4 19:11 BP 110 / 84 (auto/); mk4 19:11 Pulse 88 MON; mk4 19:41 BP 101 / 66 (auto/); tm5 19:41 Pulse 86 MON; Pulse Ox 95% ; tm5 20:11 BP 120 / 75 (auto/); tm5 20:11 Pulse 82 MON; Pulse Ox 93% ; tm5 20:41 BP 96 / 65 (auto/); tm5 20:41 Pulse 84 MON; Pulse Ox 96% ; tm5 13:12 Body Mass Index 27.62 (89.81 kg, 180.34 cm) ct3 MDM: 13:13 ECG WITH READING ER PHYS+CARDIAG ordered. EDMS 13:32 Clipman/Pulse Ox/q 30 min VS ordered. br1 13:32 IV Saline Lock ordered. br1 13:32 Rhythm Strip to chart ordered. br1 13:32 Undress patient appropriately for examination ordered. br1 13:32 Basic Metabolic Profile Ordered. EDMS 13:32 CBC with Diff Ordered. EDMS 13:32 Cardiac Injury Profile Ordered. EDMS 13:32 Troponin Ordered. EDMS 13:37 Orthostatic VS ordered. br1 14:10 PT/INR Ordered. EDMS 14:13 Chest, 1 View Ordered. EDMS 14:13 CT Head Without Contrast Ordered. EDMS 14:38 NS 0.9% 500 ml IV at bolus once ordered. ke 14:38 NS 0.9% 1000 ml IV at 250 mL/hr continuous; after bolus ordered. ke 14:38 Basic Metabolic Profile Reviewed. ke 14:38 CBC with Diff Reviewed. ke 14:38 Troponin Reviewed. ke 14:38 PT/INR Reviewed. ke 14:38 Cardiac Injury Profile Reviewed. ke 14:38 THYROID PROFILE Reviewed. ke 14:48 BED REQUEST+ADM ordered. EDMS 15:05 CBC with Diff Reviewed. ke 15:32 Financial registration complete. gjb 15:35 PCR was scanned into [employer] and attached to record. gb 15:43 [facility] Payment Agreement was scanned into [employer] and attached to record. gjb 16:12 Admission / Observation Status ordered. EDMS 16:12 2 GRAM SODIUM DIET ordered. EDMS 16:13 CARDIAC INJURY PROFILE Ordered. EDMS 16:13 TROPONIN Ordered. EDMS 16:13 URINALYSIS Ordered. EDMS 16:13 URINE CULTURE Ordered. EDMS 16:13 BLOOD CULTURES Ordered. EDMS 16:14 OCCULT BLOOD STOOL SPECIMEN Ordered. EDMS 16:15 TYPE & SCREEN Ordered. EDMS 16:19 RETICULOCYTE COUNT Ordered. EDMS 16:19 FERRITIN Ordered. EDMS 16:19 TOTAL IRON BINDING CAPACIT Ordered. EDMS 19:25 NS 0.9% 1000 ml IV at 80 mL/hr continuous ordered. mk4 19:32 CARDIAC INJURY PROFILE Ordered. EDMS 19:32 CARDIAC INJURY PROFILE Ordered. EDMS 19:32 TROPONIN Ordered. EDMS 19:32 TROPONIN Ordered. EDMS 19:32 CBC WITH DIFFERENTIAL Ordered. EDMS 19:32 COMPLETE COMPHRENSIVE METABOLI Ordered. EDMS 19:32 MAGNESIUM LEVEL Ordered. EDMS 20:02 PROTHROMBIN TIME PROFILE\E\INR Ordered. EDMS 03/29 12:51 T-Sheet-- Draft Copy was scanned into [employer] and attached to record. gb 12:52 ECG/EKG was scanned into [employer] and attached to record. gb Administered Medications: 03/28 14:57 Drug: NS 0.9% 500 ml [sodium chloride 0.9 % intravenous solution] Route: IV; Rate: mk4 bolus; Site: left antecubital; 17:07 Drug: NS 0.9% 1000 ml [sodium chloride 0.9 % intravenous solution] Route: IV; Rate: 250 mk4 mL/hr; Site: left antecubital; 19:25 Drug: NS 0.9% 1000 ml [sodium chloride 0.9 % intravenous solution] Route: IV; Rate: 80 mk4 mL/hr; Site: left antecubital; 21:11 Follow up: IV Status: Infusion continued upon admit tm5 Signatures: Dispatcher [employer] ED FranciscoeronabhijitKeely, Reg Reg gb Aurelio Kenyon, Dino Maharaj MD MD br1 Tayla Maya RN RN mk4 Kim Lozano [facility] Marie Gomez RN RN lmg Bozena Cao RN RN tm5 The chart was reviewed and I authenticate all verbal orders and agree with the evaluation and treatment provided.Corrections: (The following items were deleted from the chart) 14:16 14:10 THYROID PROFILE+LAB ordered. EDMS EDMS 16:17 16:13 IRON (FE) ordered. EDMS EDMS 16:17 16:13 TOTAL IRON BINDING CAPACIT ordered. EDMS EDMS 16:17 16:13 FERRITIN ordered. EDMS EDMS 16:18 16:13 RETICULOCYTE COUNT ordered. EDMS EDMS Attachments: 15:43 [facility] Payment Agreement [facility] 03/29 12:51 T-Sheet-- Draft Copy gb 12:52 ECG/EKG gb Chart Complete MTDD
[2016-03-31 00:34] LABS: MEAN CORPUSCULAR HEMOGLOBIN 30.4 pg (27.0-33.0); MEAN CORPUSCULAR HGB CONC 32.3 g/dl (32.0-36.5); MEAN CORPUSCULAR VOLUME 94.3 fl (80.0-96.0); RED CELL DISTRIBUTION WIDTH 14.1 % (11.5-14.5); WHITE BLOOD COUNT 10.2 K/mm3 (4.0-10.0)
[2016-03-31 04:00] VITALS: BP 126/74
[2016-03-31 05:43] LABS: BASO % 0.5 % (0.0-1.0); EOS # 0.4 K/mm3 (0.0-0.50); LARGE UNSTAINED CELL # 0.1 K/mm3 (0.0-0.4); LARGE UNSTAINED CELL % 1.6 % (0.0-4.0); LYMPH # 1.3 K/mm3 (1.5-4.5); LYMPH % 13.9 % (24.0-44.0); MEAN CORPUSCULAR HEMOGLOBIN 30.5 pg (27.0-33.0); MEAN CORPUSCULAR HGB CONC 32.4 g/dl (32.0-36.5); MEAN CORPUSCULAR VOLUME 94.3 fl (80.0-96.0); MONO # 0.4 K/mm3 (0.0-0.8); MONO % 4.8 % (0.0-5.0); NEUTROPHILS # 6.9 K/mm3 (1.8-7.7); NEUTROPHILS % 75.2 % (36.0-66.0); PLATELET COUNT, AUTOMATED 458 k/mm3 (150-450); RED CELL DISTRIBUTION WIDTH 13.9 % (11.5-14.5); WHITE BLOOD COUNT 9.2 K/mm3 (4.0-10.0)
[2016-03-31 05:48] LABS: INR 1.21
[2016-03-31 06:02] LABS: ALBUMIN 2.4 GM/DL (3.2-5.2); ALBUMIN/GLOBULIN RATIO 0.73 (1.00-1.93); ALKALINE PHOSPHATASE 136 U/L (45-117); ALT/SGPT 139 U/L (12-78); ANION GAP 7 MEQ/L (8-16); AST/SGOT 118 U/L (15-37); BILIRUBIN,TOTAL 0.9 MG/DL (0.2-1.0); BLOOD UREA NITROGEN 27 MG/DL (7-18); CARBON DIOXIDE LEVEL 27 MEQ/L (21-32); CHLORIDE LEVEL 109 MEQ/L (98-107); GLOMERULAR FILTRATION RATE > 60.0 (>35); GLUCOSE, FASTING 100 MG/DL (83-110); MAGNESIUM LEVEL 2.3 MG/DL (1.8-2.4); POTASSIUM SERUM 4.2 MEQ/L (3.5-5.1); SODIUM LEVEL 143 MEQ/L (136-145); TOTAL PROTEIN 5.7 GM/DL (6.4-8.2)
[2016-03-31] MEDS: LEVOTHYROXINE 0.1 MG TAB (100 MCG) PO SCH (06:43)
[2016-03-31 07:10] VITALS: BP 123/73
[2016-03-31 07:13] VITALS: BP 117/82
[2016-03-31 07:15] VITALS: BP 110/64
[2016-03-31] MEDS: PANTOPRAZOLE 40MG INJ (PROTONIX) (C9113) IV SCH (08:37)
--- NOTE | 2016-03-31 08:53 | IPNPDOC ---
Assessment/Plan Date Seen The patient was seen on 03/31/16. Attending Note: Patient seen an examined. Dr. Hutchinson decided against EGD today as H/H was stable off of coumadin, so patient was discharged back to [facility] for continued rehab. He plans to see his PCP Dr. Mcdonald at the end of the month and discuss with him whether to pursue further workup and treatment of his aneurysm. Please see discharge summary from today. (KES) Problems Problems: (1) Acute blood loss anemia Status: Acute Response to Treatment: Worse Problem Text: 2 - Hgb was approximately 11 after knee surgery. now down to 8.5. Heme + stool, ? black stool per patient No h/o EGD/Colonoscopy in past Continue PPI Monitor trend - Consider GI consultation 03/30 - UGI bleed with melena - s/p 2 units PRBC yesterday - monitor trend - Dr. Hutchinson consulted - may need EGD to look for source Continue BID IV PPI 03/31 - Hgb stable Last BM recorded yesterday, but no documentation of color Dr. Hutchinson has spoken with Anesthesia and will plan to take patient for EGD this afternoon Cont. BID IV PPI (2) AAA (abdominal aortic aneurysm) Status: Chronic Problem Text: Liver US showed 8x8x12 cm AAA with mural thrombus Dr. Hutchinson has been consulted I spoke with him - he does not feel CT abd pelvis is needed right now He may need to consider EGD depending on if he continues to drop his hgb and pass melena For now I have ordered 2 units PRBC due to orthostatic vs in patient who is actively passing melena per nursing report. Coumadin stopped Giveing Vit K and FFP HCP called and made aware of plan Monitor Hgb q 6H and BP Give IVF as needed if BP low 03/29 - CT abd/pelvis with oral contrast only shows AAA as well as BL ileac a. aneurysms. D/W Dr. Hutchinson plan regarding these - I expect we will transfer to [facility] once GI bleed issues has clearly stabilized 03/31 - Patient does not want to be transferred to [place]. He wants to go back to [place] to complete his rehab for his knee and then see vascular as an outpatient at some point He and his HCP are aware of the risk of rupture and from this aneurysm and both still want to wait to see vascular to discuss options for repair Avoiding high BP will be important going forward (3) Syncope Status: Acute Problem Text: Telemetry uneventful so far Troponin minimally elevated yesterday - normalized today EKG on admission with t-wave inversion inferior leads new c/w 03/08/16 Repeat EKG now Consider Cardiology consultation BP remains soft at times Hgb down Concerning for GI blood loss - D/W attending 2/3 - see above. BP stable, Hgb stable (4) Elevated liver enzymes Status: Acute Problem Text: No abd pain or RUQ tenderness He reports some CURRY with slightly elevated BNP, but no clear signs of CHF otherwise to suggest liver enzymes from passive hepatic congestion. Follow trend Get Liver US Statin on hold but has h/o CAD and Carotid stenosis so needs this restarted as soon as possible. 2/ - Liver enzymes continue to rise this am with slight elevation in T. Bili - Liver Us showed contracted GB full of stones No n/v - nontender D/W general surgery 03/31 - Enzymes trending down - no symptoms or RUQ tenderness (5) Status post total knee replacement, right Status: Acute Response to Treatment: Improving Problem Text: Surgery 03/22 - Dr. Jalloh On COumadin for DVT prophylaxis - INR therapeutic 03/30 - Coumadin reversed d/t GI bleed May need IVC filter / - I spoke with Dr. Jalloh He is aware of current situation Will await EGD Restart Coumadin if felt appropriate, may use ASA 81 mg daily in stead if Coumadin not felt safe option and if Coumadin or ASA not an option, he would recommend SCD/TEDs and ankle pumps I educated patient on need for ankle pumps throughout the day (6) HTN (hypertension) Status: Acute (7) Hypothyroid Status: Chronic Response to Treatment: Stable (8) CAD (coronary artery disease), [place] coronary artery Status: Chronic Response to Treatment: Stable (9) Carotid artery narrowing Status: Chronic Response to Treatment: Stable Plan / VTE VTE Prophylaxis Ordered?: No (Coumadin) VTE Exclusion Pharmacological: Bleeding Risk Subjective Review of Systems CC/HPI The patient is a 89-year-old male admitted with a reason for visit of Syncope. Events since last encounter Feels well. Has been up out of bed without lightheadedness. Constitutional: Denies: Chills, Fever Pulmonary: Denies: Cough, Dyspnea Cardiovascular: Denies: Chest Pain, Orthopnea, Palpitations Gastrointestinal: Denies: Abdominal Pain, Constipation, Diarrhea, Nausea, Vomiting Objective Physical Examination General Exam: Positive: Alert, No Acute Distress Chest Exam: Positive: Clear to auscultation, Normal air movement Heart Exam: Positive: Murmurs (3/6 JIMBO apex), Rate Normal Abdomen Exam: Positive: Normal bowel sounds, Other (large pulsatile mass in abdomen), Soft, Negative: Tenderness Extremity Exam: Negative: Edema Vital Signs/I&O Vital Signs Date Time Temp Pulse Resp B/P Pulse Ox O2 Delivery O2 Flow Rate FiO2 03/31/16 07:15 80 110/64 03/31/16 07:10 96.2 20 94 Room Air I&O- Last 24 Hours up to 6 AM 03/31/16 06:00 Intake Total 660 ml Output Total 500 ml Balance 160 ml Laboratory Data Labs 24H Laboratory Tests 2 03/31/16 05:32: Blood Urea Nitrogen 27H, Creatinine 1.00, Sodium Level 143, Potassium Level 4.2 , Chloride Level 109H, Carbon Dioxide Level 27, Calcium Level 8.0L, Aspartate Amino Transf (AST/SGOT) 118H, Alanine Aminotransferase (ALT/SGPT) 139H, Alkaline Phosphatase 136H, Total Bilirubin 0.9, Total Protein 5.7L, Albumin 2.4L , Albumin/Globulin Ratio 0.73L, Anion Gap 7L, White Blood Count 9.2, Red Blood Count 3.13L, Hemoglobin 9.6L, Hematocrit 29.5L, Mean Corpuscular Volume 94.3, Mean Corpuscular Hemoglobin 30.5, Mean Corpuscular Hemoglobin Concent 32.4, Red Cell Distribution Width 13.9, Platelet Count 458H, Neutrophils (%) (Auto) 75.2H , Lymphocytes (%) (Auto) 13.9L, Monocytes (%) (Auto) 4.8, Eosinophils (%) (Auto ) 4.0H, Basophils (%) (Auto) 0.5, Neutrophils # (Auto) 6.9, Lymphocytes # (Auto ) 1.3L, Monocytes # (Auto) 0.4, Eosinophils # (Auto) 0.4, Basophils # (Auto) 0.0 , Glomerular Filtration Rate > 60.0, Large Unclassified Cells # 0.1, Large Unclassified Cells % 1.6, Magnesium Level 2.3, Prothromb Time International Ratio 1.21, Prothrombin Time 15.4H CBC/BMP Laboratory Tests 03/30/16 12:19 Red Blood Count 3.21 L, Mean Corpuscular Volume 93.6, Mean Corpuscular Hemoglobin 31.7, Mean Corpuscular Hemoglobin Concent 33.8, Red Cell Distribution Width 14.1 03/30/16 18:10 Red Blood Count 3.20 L, Mean Corpuscular Volume 94.6, Mean Corpuscular Hemoglobin 30.5, Mean Corpuscular Hemoglobin Concent 32.2, Red Cell Distribution Width 14.1 03/31/16 00:19 Red Blood Count 3.13 L, Mean Corpuscular Volume 94.3, Mean Corpuscular Hemoglobin 30.4, Mean Corpuscular Hemoglobin Concent 32.3, Red Cell Distribution Width 14.1 03/31/16 05:32 Red Blood Count 3.13 L, Mean Corpuscular Volume 94.3, Mean Corpuscular Hemoglobin 30.5, Mean Corpuscular Hemoglobin Concent 32.4, Red Cell Distribution Width 13.9, Calcium Level 8.0 L, Aspartate Amino Transf (AST/SGOT) 118 H, Alanine Aminotransferase (ALT/SGPT) 139 H, Alkaline Phosphatase 136 H, Total Bilirubin 0.9, Total Protein 5.7 L, Albumin 2.4 L, Neutrophils (%) (Auto) 75.2 H, Lymphocytes (%) (Auto) 13.9 L, Monocytes (%) (Auto) 4.8, Eosinophils (% ) (Auto) 4.0 H, Basophils (%) (Auto) 0.5, Neutrophils # (Auto) 6.9, Lymphocytes # (Auto) 1.3 L, Monocytes # (Auto) 0.4, Eosinophils # (Auto) 0.4, Basophils # ( Auto) 0.0 Microbiology Microbiology 03/28/16 Blood Culture - Preliminary, Resulted No Growth after 48 hours. All Specime... 03/28/16 Stool Occult Blood (DIEGO) - Final, Complete 03/28/16 Urine Culture - Final, Complete Proteus Mirabilis ZO MCDONALD PA-C Mar 31, 2016 08:53 VINICIO CASTREJON MD Mar 31, 2016 18:59
[2016-03-31] MEDS ORDERED: PROTPAK PO (11:27)
[2016-03-31] MEDS ORDERED: MAPA325T2 PO (11:27)
[2016-03-31] MEDS ORDERED: ASPI81TA85 PO (11:28)
[2016-03-31] MEDS: MULTIVITAMINS/MINERALS THERAP 1 TAB PO SCH (11:32)
--- NOTE | 2016-04-01 13:52 | DSES ---
DATE OF ADMISSION: 03/30/2016 DATE OF DISCHARGE: 03/31/2016 BRIEF HISTORY AND PHYSICAL: The patient is an 89-year-old patient of Dr. Morris who presented from [facility] due to a syncopal episode in the morning. He woke up, went to go use the bathroom, had a large bowel movement, upon standing became lightheaded and may have lost consciousness but was for less than a minute. No head trauma. No shortness of breath, nausea or vomiting. He did have some diaphoresis associated with the event. On arrival his blood pressure was 111/75, pulse 79, respirations 18, oxygen saturation 97%, temperature 98. He was alert and oriented, speaking full sentences at that time. His past medical history is significant for coronary artery disease status post coronary artery bypass graft (CABG), dyslipidemia, hypothyroidism, osteoarthritis with a recent right knee arthroplasty on 03/22/2016, on anticoagulation therapy with Coumadin for deep venous thrombosis (DVT) prophylaxis post knee replacement. PERTINENT LABORATORY DATA ON ADMISSION: White count 11.2, hemoglobin 9.4, platelets 400,000. Sodium 140, potassium 4.5, BUN 69, creatinine 1.61, glucose 153. CRP was negative. Troponin was slightly elevated at 0.19. TSH was normal. INR was 1.98. CT of the brain showed moderately severe diffuse atrophy and ventriculomegaly in proportion, he had calcified carotid siphons, no acute fracture. No other acute findings. Chest x-ray showed some hyperinflation with chronic obstructive pulmonary disease (COPD) and linear fibrotic changes in the left base and prior CABG, all stable. No acute findings. Stool occult blood was positive. HOSPITAL COURSE: The patient was admitted for a syncopal episode likely secondary to orthostasis or vasovagal episode. He had orthostatic vital signs in the emergency room. Pain medicines were discontinued as it was felt that they may have been contributing to his dehydration. He had not been eating or drinking well and had vomited the days leading up to this admission suggesting some dehydration as well. The suspicion was that that was also related to the pain medicines. He was given IV fluid hydration and his blood pressure improved as did his BUN which was 69 when he came in and had come down to 27 at the time of his discharge. 2. Acute upper gastrointestinal (GI) bleed. His hemoglobin on arrival was 9.4 which was lower than it had been after his knee surgery, at that time it had been around 12, suggesting that he has some GI blood loss anemia. His hemoglobin dropped down to 8.5 with IV fluid hydration suggesting some dilutional aspect, however, he also was passing melena stool and had heme-positive stool and clearly had been experiencing an upper GI bleed. He was transfused 2 units of packed red blood cells. His hemoglobin improved and remained stable after his transfusion and was 9.6 at the time of his discharge. His Coumadin was reversed with fresh frozen plasma (FFP) and vitamin K. Dr. Hutchinson saw the patient in consultation and originally had planned to take him for upper endoscopy to evaluate the source of his bleeding. However, since his hemoglobin remained stable he opted not to take him for upper endoscopy. He does not feel that it is safe to restart him on Coumadin but feels that an 81 mg aspirin is reasonable for deep venous thrombosis (DVT) prophylaxis and therefore he has been started on 81 mg of aspirin and we will need to monitor his hemoglobin going forward to evaluate for further signs of bleeding. 3. Abdominal aortic aneurysm. The patient underwent liver ultrasound. Revealed an 8 x 8 x 12 cm abdominal aortic aneurysm with mural thrombus. Dr. Hutchinson evaluated him for this as well. He underwent a CT of the abdomen and pelvis with oral contrast only which did show that he has two smaller aneurysms on both iliac arteries as well. The patient and the healthcare proxy were made aware of this large abdominal aortic aneurysm and it was clearly expressed to both of them that this is at significant risk for rupture and . The patient however did not want to be referred or transferred to [facility] as had been recommended. He wanted to go back to [place] to complete his rehabilitation for his knee and then see a vascular specialist as an outpatient to look into what type of surgery would be recommended and whether or not he is a candidate for that surgery. Goals at this point would be to avoid significant hypertension and monitor for change in his status. 4. Recent right knee replacement. I spoke with Dr. Jalloh and let him know of the patient's upper GI bleed and our need to stop and reverse his Coumadin. He felt that if possible an 81 mg aspirin would be the next best option for him and also sequential compression devices (SCDs) and thromboembolism deterrents (TEDs) with encouragement for the patient to perform ankle pumps regularly to prevent DVT. He did not feel that filter placement was warranted or indicated in this setting. 5. Elevated liver enzymes. His liver enzymes became acutely elevated. Liver ultrasound was performed, did show a contracted gallbladder full of stones. He had no symptoms of nausea, vomiting or right upper quadrant tenderness. The patient really would not be a candidate for treatment of this at this point given his other medical issues. His liver enzymes did trend back down. He had a tiny bump in his total bilirubin which normalized and the liver enzymes were heading back down toward baseline at the time of his discharge and again he was not symptomatic. 6. Syncope. As stated above he was felt to have hypotension and other issues contributing to his syncopal event. He had no events on telemetry and had no further syncope or lightheadedness. His blood pressures at the time of transfer are running in the 110s to 120s systolic. He is not on any blood pressure medications at this time and I would avoid blood pressure medicines unless his blood pressure becomes elevated. DISPOSITION: He is stable for transfer back to [place] for his rehabilitation on his right knee. MEDICATIONS: - Tylenol 650 mg every 4 hours as needed for pain or fever - aspirin 81 mg daily - Protonix 40 mg twice a day - bisacodyl 10 mg per rectum daily as needed constipation - calcium plus D at bedtime - calcium 1250 mg three times a day - enema per rectum daily as needed - Synthroid 200 mcg daily - Milk of Magnesia 30 mL daily - multivitamin daily - Osteo Bi-Flex one tablet daily - MiraLax 17 grams daily - pravastatin 80 mg daily - PreserVision one capsule twice a day His Percocet and Coumadin have been discontinued. He will need monitoring of his complete blood count (CBC) to monitor for any signs of recurrent GI bleeding. DISCHARGE DIAGNOSES: 1. Syncope. 2. Acute blood loss anemia. 3. Upper GI bleed. 4. Abdominal aortic aneurysm. 5. Iliac artery aneurysms bilaterally. 6. Elevated liver enzymes. 7. Recent total knee replacement. 8. History of hypertension. 9. Hypothyroidism. 10. History of coronary artery disease. 11. History of carotid narrowing.
== END 2016-03-31 12:46 | DRG 378 ==
LOC: M ED 13:04 → M ED INP 16:07 → M PCU 21:22 → OBSVTOIN 03-30 13:40
PROVIDERS: ADMIT Internal Medicine; ATTEND Family Medicine
PROC: 30233N1 Transfusion of Nonautologous Red Blood Cells into Peripheral Vein, Percutaneous Approach (ICD-10-PCS; principal; 2016-03-29)
PROC: 30233K1 Transfusion of Nonautologous Frozen Plasma into Peripheral Vein, Percutaneous Approach (ICD-10-PCS; 2016-03-29)
DX: K92.1 Melena (principal); D62 Acute posthemorrhagic anemia; I74.09 Other arterial embolism and thrombosis of abdominal aorta; I95.1 Orthostatic hypotension; I71.4 Abdominal aortic aneurysm, without rupture; I72.3 Aneurysm of iliac artery; I25.10 Atherosclerotic heart disease of native coronary artery without angina pectoris; E78.5 Hyperlipidemia, unspecified; E03.9 Hypothyroidism, unspecified; M19.90 Unspecified osteoarthritis, unspecified site; Z79.01 Long term (current) use of anticoagulants; Z96.651 Presence of right artificial knee joint; R55 Syncope and collapse; Z79.82 Long term (current) use of aspirin; Z79.899 Other long term (current) drug therapy

== ENCOUNTER → 2016-03-28 | Outpatient (REF) ==
[~2016-03-28] MED LIST changes: +BISA10SU4 PR; +CALC1TAB21 PO; +CALC500C16 PO; +CALCCHW3 PO; +COUM10TA PO; +ENEM1ENE4 PR; +FLEEENE4 PR; +MAPA325T2 PO; +MILKSUS PO; +MIRA33504 PO; +Non-Formulary Medication XX; +OXYC1TAB23 PO; +PEG1POW PO; +PERC5TAB6 PO; +PERCOCET PO; +Patient Own Medication PO; +SENN1TAB2 PO; +TYLE500T78 PO; +VITMTA PO; +WARF4TAB52 PO
[2016-03-28 14:41] LABS: MEAN CORPUSCULAR HEMOGLOBIN 31.1 pg (27.0-33.0); MEAN CORPUSCULAR HGB CONC 31.5 g/dl (32.0-36.5); MEAN CORPUSCULAR VOLUME 98.4 fl (80.0-96.0); RED CELL DISTRIBUTION WIDTH 12.4 % (11.5-14.5); WHITE BLOOD COUNT 11.5 K/mm3 (4.0-10.0)
[2016-03-28 14:58] LABS: ANION GAP 9 MEQ/L (8-16); BLOOD UREA NITROGEN 70 MG/DL (7-18); CARBON DIOXIDE LEVEL 28 MEQ/L (21-32); CHLORIDE LEVEL 105 MEQ/L (98-107); CREATININE FOR GFR 1.11 MG/DL (0.70-1.30); GLOMERULAR FILTRATION RATE > 60.0 (>35); GLUCOSE, FASTING 125 MG/DL (83-110); POTASSIUM SERUM 4.7 MEQ/L (3.5-5.1); SODIUM LEVEL 142 MEQ/L (136-145)
== END ==
PROVIDERS: ATTEND Internal Medicine
DX: Z79.01 Long term (current) use of anticoagulants (principal); Z79.899 Other long term (current) drug therapy

== ENCOUNTER → 2016-04-01 | Outpatient (CLI) | payer MEDICARE ==
[~2016-04-01] MED LIST changes: +ASPI81TA85 PO; +BISA10SU4 PR; +CALC1TAB21 PO; +CALCCHW3 PO; +ENEM1ENE4 PR; +MIRA33504 PO; +OXYC1TAB23 PO; +PROTPAK PO; +TYLE500T78 PO; +VITMTA PO; +WARF4TAB52 PO
[2016-04-01 17:24] LABS: MEAN CORPUSCULAR HEMOGLOBIN 30.6 pg (27.0-33.0); MEAN CORPUSCULAR HGB CONC 31.5 g/dl (32.0-36.5); RED CELL DISTRIBUTION WIDTH 13.7 % (11.5-14.5); WHITE BLOOD COUNT 10.3 K/mm3 (4.0-10.0)
== END ==
PROVIDERS: ATTEND Internal Medicine
DX: D64.9 Anemia, unspecified (principal)

== ENCOUNTER → 2016-04-03 | Outpatient (REF) ==
[2016-04-03 11:07] LABS: MEAN CORPUSCULAR HEMOGLOBIN 30.5 pg (27.0-33.0); MEAN CORPUSCULAR HGB CONC 31.6 g/dl (32.0-36.5); MEAN CORPUSCULAR VOLUME 96.5 fl (80.0-96.0); RED CELL DISTRIBUTION WIDTH 14.3 % (11.5-14.5); WHITE BLOOD COUNT 11.3 K/mm3 (4.0-10.0)
[2016-04-03 11:35] LABS: ANION GAP 8 MEQ/L (8-16); BLOOD UREA NITROGEN 22 MG/DL (7-18); CARBON DIOXIDE LEVEL 27 MEQ/L (21-32); CHLORIDE LEVEL 108 MEQ/L (98-107); CREATININE FOR GFR 1.03 MG/DL (0.70-1.30); GLOMERULAR FILTRATION RATE > 60.0 (>35); GLUCOSE, FASTING 98 MG/DL (83-110); POTASSIUM SERUM 3.9 MEQ/L (3.5-5.1); SODIUM LEVEL 143 MEQ/L (136-145)
== END ==
PROVIDERS: ATTEND Internal Medicine
DX: Z00.00 Encounter for general adult medical examination without abnormal findings (principal)

== ENCOUNTER → 2016-04-06 | Outpatient (REF) | payer MEDICARE ==
[2016-04-06 12:35] LABS: MEAN CORPUSCULAR HEMOGLOBIN 30.6 pg (27.0-33.0); MEAN CORPUSCULAR HGB CONC 31.6 g/dl (32.0-36.5); RED CELL DISTRIBUTION WIDTH 13.9 % (11.5-14.5); WHITE BLOOD COUNT 10.4 K/mm3 (4.0-10.0)
== END ==
PROVIDERS: ATTEND Internal Medicine
DX: D64.9 Anemia, unspecified (principal)

== ENCOUNTER → 2016-04-10 | Outpatient (REF) ==
[2016-04-10 12:50] LABS: MEAN CORPUSCULAR HEMOGLOBIN 30.4 pg (27.0-33.0); MEAN CORPUSCULAR VOLUME 98.1 fl (80.0-96.0); WHITE BLOOD COUNT 8.3 K/mm3 (4.0-10.0)
[2016-04-10 13:18] LABS: ANION GAP 9 MEQ/L (8-16); BLOOD UREA NITROGEN 18 MG/DL (7-18); CALCIUM LEVEL 8.6 MG/DL (8.8-10.2); CARBON DIOXIDE LEVEL 28 MEQ/L (21-32); CHLORIDE LEVEL 105 MEQ/L (98-107); CREATININE FOR GFR 1.04 MG/DL (0.70-1.30); GLOMERULAR FILTRATION RATE > 60.0 (>35); GLUCOSE, FASTING 107 MG/DL (83-110); POTASSIUM SERUM 4.9 MEQ/L (3.5-5.1); SODIUM LEVEL 142 MEQ/L (136-145)
== END ==
PROVIDERS: ATTEND Internal Medicine
DX: D64.9 Anemia, unspecified (principal)

== ENCOUNTER → 2016-04-13 | Outpatient (REF) ==
[2016-04-13 10:32] LABS: MEAN CORPUSCULAR HGB CONC 31.3 g/dl (32.0-36.5); MEAN CORPUSCULAR VOLUME 99.1 fl (80.0-96.0); RED CELL DISTRIBUTION WIDTH 13.9 % (11.5-14.5); WHITE BLOOD COUNT 7.6 K/mm3 (4.0-10.0)
== END ==
PROVIDERS: ATTEND Internal Medicine
DX: D64.9 Anemia, unspecified (principal)

== ENCOUNTER → 2016-04-19 | Outpatient (REF) | payer MEDICARE ==
[2016-04-19 11:03] LABS: ALBUMIN 3.2 GM/DL (3.2-5.2); ALBUMIN/GLOBULIN RATIO 0.91 (1.00-1.93); ALKALINE PHOSPHATASE 133 U/L (45-117); ALT/SGPT 22 U/L (12-78); ANION GAP 7 MEQ/L (8-16); AST/SGOT 22 U/L (15-37); BILIRUBIN,TOTAL 0.5 MG/DL (0.2-1.0); BLOOD UREA NITROGEN 14 MG/DL (7-18); CALCIUM LEVEL 8.6 MG/DL (8.8-10.2); CARBON DIOXIDE LEVEL 28 MEQ/L (21-32); CHLORIDE LEVEL 106 MEQ/L (98-107); CHOLESTEROL LEVEL 144 MG/DL (<200); CREATININE FOR GFR 1.19 MG/DL (0.70-1.30); FREE T4 1.48 NG/DL (0.76-1.46); GLOMERULAR FILTRATION RATE > 60.0 (>35); GLUCOSE, FASTING 84 MG/DL (83-110); POTASSIUM SERUM 4.5 MEQ/L (3.5-5.1); SODIUM LEVEL 141 MEQ/L (136-145); TOTAL PROTEIN 6.7 GM/DL (6.4-8.2); TRIGLYCERIDES LEVEL 95 MG/DL (<150)
== END ==
LOC: M SFHCPLAZ 08:07
PROVIDERS: ATTEND Family Medicine
DX: I11.9 Hypertensive heart disease without heart failure (principal); E03.9 Hypothyroidism, unspecified; E78.5 Hyperlipidemia, unspecified

== ENCOUNTER → 2016-04-25 | Outpatient (REF) | payer MEDICARE ==
[2016-04-25 11:51] LABS: MEAN CORPUSCULAR HEMOGLOBIN 30.8 pg (27.0-33.0); MEAN CORPUSCULAR VOLUME 99.2 fl (80.0-96.0); RED CELL DISTRIBUTION WIDTH 14.2 % (11.5-14.5); WHITE BLOOD COUNT 8.7 K/mm3 (4.0-10.0)
[2016-04-25 12:13] LABS: ALBUMIN 3.4 GM/DL (3.2-5.2); ALBUMIN/GLOBULIN RATIO 0.92 (1.00-1.93); BILIRUBIN,TOTAL 0.3 MG/DL (0.2-1.0); CALCIUM LEVEL 8.8 MG/DL (8.8-10.2); CREATININE FOR GFR 1.28 MG/DL (0.70-1.30); GLOMERULAR FILTRATION RATE 56.5 (>35); PERCENT SATURATION 12.8 % (19.7-37.4); POTASSIUM SERUM 4.9 MEQ/L (3.5-5.1); TOTAL PROTEIN 7.1 GM/DL (6.4-8.2)
== END ==
LOC: M SFHCPLAZ 10:20
PROVIDERS: ATTEND Family Medicine
DX: K76.89 Other specified diseases of liver (principal); Z87.19 Personal history of other diseases of the digestive system
CPT/HCPCS: 36415; 80053; 82728; 83550; 85027; G0463

== ENCOUNTER → 2016-10-09 | Outpatient (CLI) | payer MEDICARE, MEDICAID ==
[~2016-10-09] MED LIST changes: +ASPI325T24 PO; -ASPI32ECTA PO; -IBUP200C PO; +IBUP200C10 PO; +METO1TAB32 PO; -METO25TA74 PO; +PERC5TAB12 PO; -PERC5TAB6 PO
[2016-10-09 18:39] LABS: CREATININE FOR GFR 1.32 MG/DL (0.70-1.30); GLOMERULAR FILTRATION RATE 54.4 (>35)
== END ==
LOC: M WUC 13:26
PROVIDERS: ATTEND Surgery Vascular Surgery
DX: I71.4 Abdominal aortic aneurysm, without rupture (principal)

== ENCOUNTER → 2016-10-11 | Outpatient (REF) | payer MEDICARE, MEDICAID ==
[2016-10-11 11:36] LABS: MEAN CORPUSCULAR HEMOGLOBIN 29.7 pg (27.0-33.0); MEAN CORPUSCULAR HGB CONC 32.3 g/dl (32.0-36.5); MEAN CORPUSCULAR VOLUME 92.1 fl (80.0-96.0); RED CELL DISTRIBUTION WIDTH 13.8 % (11.5-14.5); WHITE BLOOD COUNT 7.9 K/mm3 (4.0-10.0)
[2016-10-11 11:50] LABS: ALBUMIN 3.2 GM/DL (3.2-5.2); ALBUMIN/GLOBULIN RATIO 0.91 (1.00-1.93); ALKALINE PHOSPHATASE 118 U/L (45-117); ALT/SGPT 17 U/L (12-78); ANION GAP 8 MEQ/L (8-16); AST/SGOT 19 U/L (15-37); BILIRUBIN,TOTAL 0.5 MG/DL (0.2-1.0); BLOOD UREA NITROGEN 20 MG/DL (7-18); CALCIUM LEVEL 8.7 MG/DL (8.8-10.2); CARBON DIOXIDE LEVEL 27 MEQ/L (21-32); CHLORIDE LEVEL 108 MEQ/L (98-107); CREATININE FOR GFR 1.18 MG/DL (0.70-1.30); FREE T4 1.52 NG/DL (0.76-1.46); GLOMERULAR FILTRATION RATE > 60.0 (>35); GLUCOSE, FASTING 84 MG/DL (83-110); POTASSIUM SERUM 4.4 MEQ/L (3.5-5.1); SODIUM LEVEL 143 MEQ/L (136-145); TOTAL PROTEIN 6.7 GM/DL (6.4-8.2)
== END ==
LOC: M SFHCPLAZ 07:38
PROVIDERS: ATTEND Physician Assistant
DX: Z87.19 Personal history of other diseases of the digestive system (principal); I25.10 Atherosclerotic heart disease of native coronary artery without angina pectoris; E03.9 Hypothyroidism, unspecified

== ENCOUNTER → 2016-10-17 | Outpatient (CLI) | payer MEDICAID, MEDICARE ==
[~2016-10-17] MED LIST changes: +ISOVUE-370 76% 100ML VIAL (Q9967) As Ordered ONE
--- NOTE | 2016-10-17 12:07 | REP ---
CT ANGIOGRAM ABDOMEN AND PELVIS: CT ABDOMEN AND PELVIS WITH CONTRAST: TECHNIQUE: Axial contrast enhanced images from the lung bases to the pubic symphysis using 100 mL Isovue 370 intravenous contrast material with multiplanar reformations. 3D MIP reconstruction images are performed. There is a large fusiform aneurysm of the distal abdominal aorta which originates just below the level of the renal arteries and extends down to the aortic bifurcations and involves the common iliac arteries. Maximum dimensions of the aneurysm sac are 8.5 cm AP by 8.6 cm transverse. Since the prior CT of 03/29/2016, there has been placement of an aortobiiliac stent graft. This extends from just below the level of the renal arteries to the distal common iliac arteries. Normal contrast opacification is seen within the stent graft. However, there is a moderate sized endoleak with contrast opacifying the internal aspect of the proximal aneurysm sac. The inferior mesenteric artery is opacified and most likely this is the source of the endoleak. 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 There also appears to be a small endoleak in the right common iliac artery aneurysm sac with a small amount of contrast seen in the aneurysm sac outside of the lumen of the graft. Contrast is seen in the dependent portion of that common iliac aneurysm sac, the sac measuring approximately 3.6 x 3.9 cm. The bilateral external iliac, common femoral and proximal superficial femoral arteries demonstrate mild scattered atherosclerotic plaquing and narrowing. The inferior thoracic aorta demonstrates mild atherosclerotic plaquing as well. The celiac artery demonstrates mild plaquing and narrowing as does the superior mesenteric artery. The liver, spleen, gallbladder, adrenals, and pancreas appear unremarkable. A small cyst is seen in each kidney. No adenopathy, free air or free fluid is seen. There is no bowel wall thickening. There is sigmoid diverticulosis without acute diverticulitis. The urinary bladder is not well distended and not well evaluated. Edema is seen in the right inguinal region likely from the prior stent graft placement. There is a very large hiatal hernia. IMPRESSION: Large distal abdominal aortic aneurysm involves the common iliac artery as discussed in detail above. An aortobiiliac stent graft is in place. 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 There also is a small endoleak in the region of the right common iliac artery aneurysm. Signed by Rachid Livingston MD 10/17/2016 04:41 P
== END ==
LOC: M RAD 09:42
PROVIDERS: ATTEND Surgery Vascular Surgery
DX: I71.4 Abdominal aortic aneurysm, without rupture (principal)
CPT/HCPCS: 74174; Q9967

== ENCOUNTER → 2016-11-28 | Outpatient (CLI) | payer MEDICARE ==
[~2016-11-28] MED LIST changes: -ISOVUE-370 76% 100ML VIAL (Q9967) As Ordered ONE
[2016-11-28 18:26] LABS: FREE T4 1.24 NG/DL (0.76-1.46)
== END ==
LOC: M WUC 14:10
PROVIDERS: ATTEND Family Medicine
DX: E03.9 Hypothyroidism, unspecified (principal)

== ENCOUNTER → 2017-02-22 | Outpatient (CLI) | payer MEDICARE | LOC: M WUC 13:44 | DX: R05 Cough (principal) | CPT/HCPCS: 71020 ==

== ENCOUNTER → 2017-03-01 | Outpatient (REF) | payer MEDICARE ==
[2017-03-01 19:10] LABS: HEMATOCRIT 35.7 % (42.0-52.0); HEMOGLOBIN 10.8 g/dl (14.0-18.0); MEAN CORPUSCULAR HEMOGLOBIN 27.6 pg (27.0-33.0); MEAN CORPUSCULAR HGB CONC 30.3 g/dl (32.0-36.5); MEAN CORPUSCULAR VOLUME 91.1 fl (80.0-96.0); PLATELET COUNT, AUTOMATED 367 10^3/uL (150-450); RED BLOOD COUNT 3.92 10^6/uL (4.30-6.10); RED CELL DISTRIBUTION WIDTH 14.8 % (11.5-14.5); WHITE BLOOD COUNT 9.6 10^3/uL (4.0-10.0)
[2017-03-01 20:01] LABS: ALBUMIN 3.7 GM/DL (3.2-5.2); ALBUMIN/GLOBULIN RATIO 1.06 (1.00-1.93); ALKALINE PHOSPHATASE 146 U/L (45-117); ALT/SGPT 46 U/L (12-78); ANION GAP 7 MEQ/L (8-16); AST/SGOT 40 U/L (7-37); BILIRUBIN,TOTAL 0.6 MG/DL (0.2-1.0); BLOOD UREA NITROGEN 27 MG/DL (7-18); CALCIUM LEVEL 8.9 MG/DL (8.8-10.2); CARBON DIOXIDE LEVEL 27 MEQ/L (21-32); CHLORIDE LEVEL 107 MEQ/L (98-107); CREATININE FOR GFR 1.38 MG/DL (0.70-1.30); FREE T4 1.44 NG/DL (0.76-1.46); GLOMERULAR FILTRATION RATE 51.6 (>35); GLUCOSE, FASTING 96 MG/DL (83-110); POTASSIUM SERUM 4.7 MEQ/L (3.5-5.1); SODIUM LEVEL 141 MEQ/L (136-145); THYROID STIMULATING HORMONE 0.711 uIU/ML (0.358-3.740); TOTAL PROTEIN 7.2 GM/DL (6.4-8.2)
== END ==
LOC: M SFHCADAM 14:14
DX: I48.2 Chronic atrial fibrillation (principal)
CPT/HCPCS: 84443

== ENCOUNTER → 2017-03-06 | Outpatient (CLI) | payer MEDICARE | LOC: M WUC 15:07 | DX: J84.10 Pulmonary fibrosis, unspecified (principal); I51.7 Cardiomegaly; I50.82 Biventricular heart failure | CPT/HCPCS: 71046 ==

== ENCOUNTER → 2017-03-26 | Outpatient (CLI) | payer MEDICARE ==
[2017-03-26 12:21] LABS: BASO # 0.1 10^3/uL (0.0-0.2); BASO % 0.9 % (0.0-1.0); EOS # 0.4 10^3/uL (0.0-0.50); HEMATOCRIT 39.5 % (42.0-52.0); HEMOGLOBIN 12.2 g/dl (14.0-18.0); IMMATURE GRANULOCYTE % 0.3 % (0-0); LYMPH # 1.3 10^3/uL (1.5-4.5); LYMPH % 18.2 % (24.0-44.0); MEAN CORPUSCULAR HEMOGLOBIN 27.5 pg (27.0-33.0); MEAN CORPUSCULAR HGB CONC 30.9 g/dl (32.0-36.5); MONO # 0.5 10^3/uL (0.0-0.8); MONO % 6.4 % (0.0-5.0); NEUTROPHILS # 4.9 10^3/uL (1.8-7.7); NEUTROPHILS % 69.2 % (36.0-66.0); PLATELET COUNT, AUTOMATED 381 10^3/uL (150-450); RED BLOOD COUNT 4.44 10^6/uL (4.30-6.10); RED CELL DISTRIBUTION WIDTH 15.6 % (11.5-14.5); WHITE BLOOD COUNT 7.1 10^3/uL (4.0-10.0)
[2017-03-26 12:53] LABS: BLOOD UREA NITROGEN 35 MG/DL (7-18)
[2017-03-26 12:53] LABS: CREATININE FOR GFR 1.79 MG/DL (0.70-1.30); FERRITIN 96 NG/ML (26-388); GLOMERULAR FILTRATION RATE 38.3 (>35); IRON (FE) 62 UG/DL (65-175); PERCENT SATURATION 18.1 % (19.7-50.0); TOTAL IRON BINDING CAPACITY 342 UG/DL (250-450)
[2017-03-26 12:55] LABS: VITAMIN B12 LEVEL 709 PG/ML (247-911)
[2017-03-26 12:57] LABS: FOLATE > 24.0 NG/ML (>5.4)
== END ==
LOC: M WUC 08:56
DX: D64.9 Anemia, unspecified (principal)
CPT/HCPCS: 82565

== ENCOUNTER 2017-04-30 06:47 | Day surgery (SDC) | payer MEDICARE ==
[2017-04-30] MEDS: NS 1,000 ML IV (07:00)
[2017-04-30] MEDS ORDERED: LIDOCAINE 2% INJ 100 MG/5 ML SDV (FOR ANES.) As Ordered (07:21)
[2017-04-30] MEDS ORDERED: PROPOFOL 200 MG/20 ML VIAL As Ordered (07:21)
[2017-04-30] MEDS ORDERED: PHENYLephrine HCL 500 MCG/5 ML (100MCG/ML) SYRINGE (J2370) As Ordered (08:18)
== END 2017-04-30 09:22 | disposition home or self-care (01) ==
LOC: M OPP 06:47
DX: K64.8 Other hemorrhoids (principal); D12.0 Benign neoplasm of cecum; K62.89 Other specified diseases of anus and rectum; K57.30 Diverticulosis of large intestine without perforation or abscess without bleeding; K62.5 Hemorrhage of anus and rectum; K44.9 Diaphragmatic hernia without obstruction or gangrene; I48.91 Unspecified atrial fibrillation; I11.9 Hypertensive heart disease without heart failure; E03.9 Hypothyroidism, unspecified; E78.5 Hyperlipidemia, unspecified; I25.2 Old myocardial infarction; Z79.82 Long term (current) use of aspirin; Z79.899 Other long term (current) drug therapy
CPT/HCPCS: 45380

== ENCOUNTER → 2017-05-07 | Outpatient (CLI) | payer MEDICARE ==
[2017-05-07 09:26] LABS: HEMATOCRIT 35.5 % (42.0-52.0); HEMOGLOBIN 11.4 g/dl (14.0-18.0); MEAN CORPUSCULAR HEMOGLOBIN 28.4 pg (27.0-33.0); MEAN CORPUSCULAR HGB CONC 32.1 g/dl (32.0-36.5); MEAN CORPUSCULAR VOLUME 88.5 fl (80.0-96.0); PLATELET COUNT, AUTOMATED 264 10^3/uL (150-450); RED BLOOD COUNT 4.01 10^6/uL (4.30-6.10); RED CELL DISTRIBUTION WIDTH 20.2 % (11.5-14.5)
[2017-05-07 10:07] LABS: ALBUMIN 3.3 GM/DL (3.2-5.2); ALBUMIN/GLOBULIN RATIO 0.92 (1.00-1.93); ALKALINE PHOSPHATASE 129 U/L (45-117); ALT/SGPT 18 U/L (12-78); ANION GAP 6 MEQ/L (8-16); AST/SGOT 21 U/L (7-37); BILIRUBIN,TOTAL 0.5 MG/DL (0.2-1.0); BLOOD UREA NITROGEN 28 MG/DL (7-18); CARBON DIOXIDE LEVEL 32 MEQ/L (21-32); CHLORIDE LEVEL 103 MEQ/L (98-107); CHOLESTEROL LEVEL 154 MG/DL (<200); CREATININE FOR GFR 1.67 MG/DL (0.70-1.30); FREE T4 1.57 NG/DL (0.76-1.46); GLOMERULAR FILTRATION RATE 41.4 (>35); GLUCOSE, FASTING 94 MG/DL (70-100); HDL CHOLESTEROL 55 MG/DL (>40); LDL CHOLESTEROL 83.2 MG/DL (<100); NON-HDL-C 99 MG/DL; POTASSIUM SERUM 4.4 MEQ/L (3.5-5.1); SODIUM LEVEL 141 MEQ/L (136-145); THYROID STIMULATING HORMONE 0.167 uIU/ML (0.358-3.740); TOTAL PROTEIN 6.9 GM/DL (6.4-8.2); TRIGLYCERIDES LEVEL 79 MG/DL (<150)
== END ==
LOC: M WUC 08:26
DX: E03.9 Hypothyroidism, unspecified (principal); I25.10 Atherosclerotic heart disease of native coronary artery without angina pectoris; I65.29 Occlusion and stenosis of unspecified carotid artery
CPT/HCPCS: 84443